=== PATIENT | female | born 1945 | race Caucasian/White ===

== ENCOUNTER → 2016-11-23 | Outpatient (CLI) | payer OTHER ==
[~2016-11-23] MED LIST: ALPR-411 PO; CALC600T9 PO; CELE100C PO; DICL1GEL28 TOP; LEVO125T4 PO; NRN600 PO; OXYC-57 PO; OXYSR/20 PO; PLQ200 PO; PRAZ1CAP10 PO; PRD/1 PO; RABE20TA5 PO; SERT50TA PO; TRIA37.5 PO; WARF-246 PO; WARF5TAB7 PO; ZOLP10TA PO
== END | disposition home or self-care (01) ==
LOC: C.LABSPEC 17:21
PROVIDERS: ATTEND Nurse Practitioner Family
DX: N39.0 Urinary tract infection, site not specified (principal); R32 Unspecified urinary incontinence; R35.0 Frequency of micturition

== ENCOUNTER → 2017-01-08 | Outpatient (CLI) | payer OTHER ==
[~2017-01-08] MED LIST changes: +CIPR1TAB11 PO; -LEVO125T4 PO; +LEVO125T5 PO; +NITR1CAP32 PO
--- NOTE | 2017-01-08 12:55 | DIAGNOSTIC IMAGING REPORT ---
RIGHT HIP 2 VIEWS HISTORY: Right hip pain. COMPARISON: None. FINDINGS: There is no fracture or dislocation. Small calcific densities adjacent to the proximal medial shaft of the right femur. This is likely due to old muscular injury. Mild space narrowing within the right hip consistent with degenerative change. The visualized pelvic bones are intact. No radiopaque foreign bodies. IMPRESSION: Mild right hip osteoarthritis. No fracture or dislocation within the right hip. Electronically signed by: David Barry M.D. 01/08/2017 12:53 PM Dictated Date/Time: 01/08/2017 12:51 PM
== END | disposition home or self-care (01) ==
LOC: C.RAD1850 12:39
PROVIDERS: ATTEND Internal Medicine
DX: I10 Essential (primary) hypertension (principal); M16.11 Unilateral primary osteoarthritis, right hip

== ENCOUNTER → 2017-02-08 | Outpatient (CLI) | payer OTHER ==
[~2017-02-08] MED LIST changes: -SERT50TA PO; -WARF-246 PO
== END | disposition home or self-care (01) ==
LOC: C.PATHSPEC 10:46
PROVIDERS: ATTEND Obstetrics & Gynecology
DX: L81.4 Other melanin hyperpigmentation (principal)

== ENCOUNTER → 2017-02-09 | Outpatient (CLI) | payer OTHER ==
--- NOTE | 2017-02-09 15:22 | MAMMOGRAPHY REPORT ---
BILATERAL DIGITAL SCREENING MAMMOGRAM WITH CAD: 02/09/2017 CLINICAL HISTORY: Routine screening. Patient has no complaints. TECHNIQUE: Bilateral CC and MLO views were obtained. Current study was also evaluated with a Comput er Aided Detection (CAD) system. COMPARISON: Comparison is made to exams dated: 02/05/2016 mammogram, 12/19/2013 mammogram, 06/14/2012 m ammogram, 06/02/2011 mammogram, 12/26/2009 mammogram - [facility], and 07/16/2008. BREAST COMPOSITION: There are scattered areas of fibroglandular density in both breasts. FINDINGS: There are vascular calcifications in the breasts. A 4 mm nodular asymmetry in the lateral , middle to posterior left breast, best seen on the CC view appears very similar to the 2015 and mammograms, but given slight differences in position was also likely present dating back to at [address] 07/16/2008, most likely an intramammary lymph node. An asymmetry with associated punctate microc alcifications in the right upper outer posterior breast is also very similar in appearance dating ba ck to at least 2007, therefore likely benign. No new suspicious mass, architectural distortion or c luster of microcalcifications is seen bilaterally. IMPRESSION: ACR BI-RADS CATEGORY 1: NEGATIVE Stable bilateral mammograms, without mammographic evidence of malignancy. A 1 year screening mammogr am is recommended. The patient will receive written notification of the results. Approximately 10% of breast cancers are not detected with mammography. A negative mammographic repor t should not delay biopsy if a clinically suggestive mass is present. Ce Ramos M.D. ay/:02/09/2017 15:01:46 Planning Lead: Lise BRUCE(R)(M)(BD), [facility] letter sent: Normal 1/2 BI-RADS Code: ACR BI-RADS Category 1: Negative
== END | disposition home or self-care (01) ==
LOC: C.MAMM 08:56
PROVIDERS: ATTEND Obstetrics & Gynecology
DX: Z12.31 Encounter for screening mammogram for malignant neoplasm of breast (principal); Z51.81 Encounter for therapeutic drug level monitoring; Z79.01 Long term (current) use of anticoagulants; D68.61 Antiphospholipid syndrome

== ENCOUNTER → 2017-03-04 | Outpatient (CLI) | payer OTHER ==
[2017-03-04 07:25] LABS: BASO ABS # 0.08 K/uL (0-0.2); EOS % 5.9 %; HEMATOCRIT 40.8 % (37-47); IG% 0.4 %; LYMPH % 27.4 %; MEAN CELL VOLUME 89.3 fL (80-100); MEAN CORPUSCULAR HEMOGLOBIN 28.7 pg (25-34); MONO % 10.7 %; NEUT % 54.6 %; PLATELET COUNT 268 K/uL (130-400); RED BLOOD COUNT 4.57 M/uL (4.2-5.4); WHITE BLOOD COUNT 7.66 K/uL (4.8-10.8)
[2017-03-04 07:34] LABS: PROTHROMBIN TIME (PATIENT) 10.9 SECONDS (9.0-12.0)
[2017-03-04 07:46] LABS: COMPLETE YES; MEAN CORPUSCULAR HGB CONC 32.1 g/dl (32-36)
== END | disposition home or self-care (01) ==
LOC: C.LAB 07:08
PROVIDERS: ATTEND Physician Assistant Medical
DX: Z01.810 Encounter for preprocedural cardiovascular examination (principal); Z01.812 Encounter for preprocedural laboratory examination; G57.01 Lesion of sciatic nerve, right lower limb; M70.61 Trochanteric bursitis, right hip; Z79.01 Long term (current) use of anticoagulants; Z51.81 Encounter for therapeutic drug level monitoring; Z79.52 Long term (current) use of systemic steroids; M32.9 Systemic lupus erythematosus, unspecified; M06.9 Rheumatoid arthritis, unspecified; M81.0 Age-related osteoporosis without current pathological fracture; F11.20 Opioid dependence, uncomplicated; Z86.718 Personal history of other venous thrombosis and embolism; Z86.711 Personal history of pulmonary embolism; K21.9 Gastro-esophageal reflux disease without esophagitis; I10 Essential (primary) hypertension; Z90.89 Acquired absence of other organs; Z90.49 Acquired absence of other specified parts of digestive tract; E89.0 Postprocedural hypothyroidism; Z98.49 Cataract extraction status, unspecified eye; Z89.421 Acquired absence of other right toe(s)

== ENCOUNTER → 2017-03-09 | Outpatient (CLI) | payer OTHER | END | disposition home or self-care (01) | LOC: C.RDSM 09:00 | PROVIDERS: ATTEND Physical Medicine & Rehabilitation Sports Medicine | DX: M25.562 Pain in left knee (principal); Z51.81 Encounter for therapeutic drug level monitoring; Z79.01 Long term (current) use of anticoagulants; D68.61 Antiphospholipid syndrome ==

== ENCOUNTER → 2017-04-13 | Outpatient (CLI) | payer OTHER ==
[~2017-04-13] MED LIST changes: -CIPR1TAB11 PO; +LEVO125T4 PO; -LEVO125T5 PO; -NITR1CAP32 PO
== END | disposition home or self-care (01) ==
LOC: C.RDSM 15:04
PROVIDERS: ATTEND Physical Medicine & Rehabilitation Sports Medicine
DX: M25.551 Pain in right hip (principal); Z51.81 Encounter for therapeutic drug level monitoring; Z79.01 Long term (current) use of anticoagulants; D68.61 Antiphospholipid syndrome; K65.1 Peritoneal abscess

== ENCOUNTER → 2017-04-26 | Outpatient (CLI) | payer OTHER ==
--- NOTE | 2017-04-26 11:16 | DIAGNOSTIC IMAGING REPORT ---
RIGHT TIBIA/FIBULA 2 VIEWS ROUTINE HISTORY: 72 years-old Female M19.90 [id number] [id number] Pain of footBothRA Right COMPARISON: Right femur radiographs 04/13/2017 TECHNIQUE: Frontal and lateral views of the right tibia and fibula. FINDINGS: The bones are moderately demineralized. There is a small knee joint effusion. Moderate to severe degenerative changes are seen throughout the right mid foot. There is a 6 mm soft tissue calcification of the medial lower leg. There is no acute fracture or dislocation. Moderate degenerative changes are seen within the lateral compartment about the knee. Mild medial patellofemoral compartment osteoarthritis is also present. IMPRESSION: 1. Moderate bone demineralization without acute fracture or dislocation. 2. Small knee joint effusion. 3. Tricompartmental osteoarthritis, most pronounced within the lateral compartment where there is moderate disease. The above report was generated using voice recognition software. It may contain grammatical, syntax or spelling errors. Electronically signed by: Nakul Padilla M.D. 04/26/2017 11:14 AM Dictated Date/Time: 04/26/2017 11:12 AM
--- NOTE | 2017-04-26 11:17 | DIAGNOSTIC IMAGING REPORT ---
LEFT TIBIA/FIBULA 2 VIEWS ROUTINE CLINICAL HISTORY: M19.90 BabhosfxrlqzieV33.80 IlrlyggsniO63.673 Pain of footBothRA LEFT LOWER LEG PAIN COMPARISON: None. DISCUSSION: The bones are osteopenic. No acute fractures are visualized. There are vascular calcifications present. There are multiple surgical clips present within the medial posterior soft tissues. Moderate arthritic changes are suspected within the midfoot. IMPRESSION: Osteopenia. No acute fractures. No destructive lesions identified. Electronically signed by: Jeff Carr M.D. 04/26/2017 11:16 AM Dictated Date/Time: 04/26/2017 11:15 AM
--- NOTE | 2017-04-26 12:17 | DIAGNOSTIC IMAGING REPORT ---
LEG LENGTH STUDY (WHOLE LEG) CLINICAL HISTORY: Foot pain. Osteopenia. Osteoarthritis. COMPARISON STUDY: No previous studies for comparison. FINDINGS: Surgical weston within the left lower leg are noted. Arthritis within both knees is noted, greatest within the lateral compartments. Right femur measures 55.1 cm and left femur measures 54.7 cm. Right tibia measures 46.5 cm and left tibia measures 45 cm. IMPRESSION: Right femur length of 55.1 cm and left femur length of 54.7 cm. Right tibia length of 46.5 cm and left tibia length of 45 cm. Total right leg length of 101.6 cm in total left leg length of 99.7 cm. Electronically signed by: Tej Fox M.D. 04/26/2017 12:16 PM Dictated Date/Time: 04/26/2017 12:12 PM
== END | disposition home or self-care (01) ==
LOC: C.RAD1850 10:31
PROVIDERS: ATTEND Internal Medicine
DX: M79.673 Pain in unspecified foot (principal); M85.80 Other specified disorders of bone density and structure, unspecified site; M25.461 Effusion, right knee; M17.11 Unilateral primary osteoarthritis, right knee

== ENCOUNTER → 2017-05-14 | Outpatient (CLI) | payer OTHER ==
--- NOTE | 2017-05-14 12:09 | DIAGNOSTIC IMAGING REPORT ---
ABDOMINAL ULTRASOUND HISTORY: Right lower quadrant lump. COMPARISON: CT of the abdomen and pelvis August 20, 2015 and abdominal ultrasound September 17, 2015. FINDINGS: Sonography of the right lower quadrant site of palpable abnormality demonstrated a small subcutaneous fluid collection that measured approximately 3 x 1.2 cm. This was shown on exam of September 17, 2015 and is similar to prior exam when allowing for measurement variability. This appears to communicate with a larger collection associated with a hernia mesh which was also shown on prior exam. No significant change is noted since prior exam although comparison by sonography is difficult. IMPRESSION: Small subcutaneous fluid collection of the right lower quadrant which reflects the palpable abnormality. This collection likely communicates with fluid associated with a hernia mesh. Comparison by sonography is difficult however similar findings were shown on exam September 17, 2015. Electronically signed by: Tej Fox M.D. 05/14/2017 12:08 PM Dictated Date/Time: 05/14/2017 12:02 PM
== END | disposition home or self-care (01) ==
LOC: C.ULTR 10:57
PROVIDERS: ATTEND Physician Assistant
DX: R10.9 Unspecified abdominal pain (principal); R18.8 Other ascites

== ENCOUNTER → 2017-06-07 | Outpatient (CLI) | payer OTHER | END | disposition home or self-care (01) | LOC: C.LABSPEC 12:19 | PROVIDERS: ATTEND Physician Assistant | DX: K65.1 Peritoneal abscess (principal); R18.8 Other ascites ==

== ENCOUNTER → 2017-06-08 | Outpatient (CLI) | payer OTHER ==
--- NOTE | 2017-06-08 16:13 | DIAGNOSTIC IMAGING REPORT ---
ABDOMEN NO IV/ORAL CONT (CT) CT DOSE: 548.24 mGycm HISTORY: Abscess K65.1 Abdominal [id number] TECHNIQUE: Multiaxial CT images of the abdomen was performed without contrast. A dose lowering technique was utilized adhering to the principles of ALARA. COMPARISON STUDY: CT 08/20/2015 FINDINGS: Lung bases remain clear. Minimal right basilar atelectasis. The complex right anterior abdominal wall collection has increased in volume from the prior study. Maximum transaxial dimensions are now 7.5 x 5.0 cm. The possibility of intra-abdominal extension to the distal greater curvature of the stomach, and possibly hepatic flexure the colon of the colon is now considered. A fluid pocket potentially involving anterior aspect of the hepatic flexure is present measuring 3.3 cm. Although in contact and potentially involving the gastric/colonic wall there does not appear to be an obstructive component. There is inflammatory change and or cellulitis involving the right lateral abdominal wall extending from the level of the right 11th rib inferiorly to the level of the right iliac crest. A drainable subcutaneous collection does not appear to be present. Kidneys remain negative for hydronephrosis. There may be a small lower pole left renal cyst unchanged. Visualized components of pancreas are unremarkable. IMPRESSION: 1. Interval increase in volume of a right anterior abdominal wall collection, now with secondary involvement of the subcutaneous fat of the right flank consistent with a secondary cellulitis. 2. The collection appears to redemonstrated intra-abdominal extension to the distal aspect of the stomach as well as hepatic flexure of the colon. 3. Bowel pattern remains nonobstructive. Slightly progressive infiltrative changes along the anterior abdominal wall and/or peritoneal surface must also be considered. Diagnostic considerations include hematoma, abscess, versus necrotic mass The above report was generated using voice recognition software. It may contain grammatical, syntax or spelling errors. Electronically signed by: Fernando Smith M.D. 06/08/2017 4:12 PM Dictated Date/Time: 06/08/2017 4:04 PM
== END | disposition home or self-care (01) ==
LOC: C.CTS 15:41
PROVIDERS: ATTEND Physician Assistant
DX: K65.1 Peritoneal abscess (principal)

== ENCOUNTER → 2017-07-07 | Outpatient (CLI) | payer OTHER | END | disposition home or self-care (01) | LOC: C.LABSPEC 17:07 | PROVIDERS: ATTEND Nurse Practitioner Adult Health | DX: N39.0 Urinary tract infection, site not specified (principal) ==

== ENCOUNTER → 2017-07-08 | Outpatient (CLI) | payer OTHER ==
[~2017-07-08] MED LIST changes: +CIPR1TAB11 PO; -LEVO125T4 PO; +LEVO125T5 PO; +NITR1CAP32 PO
--- NOTE | 2017-07-08 08:12 | DIAGNOSTIC IMAGING REPORT ---
ABD WITH ORAL CONT ONLY (CT) HISTORY: Follow-up of abdominal wall mass. TECHNIQUE: Multiaxial CT images of the abdomen were performed following the use of oral contrast only. COMPARISON STUDY: Abdomen CT 06/08/2017. FINDINGS: Partially visualized A millimeters groundglass nodule within the right lower lobe. Mild dependent changes seen at the lung bases. Mild elevation the right hemidiaphragm, unchanged. No pneumoperitoneum. No pneumatosis. Levoscoliosis and degenerative changes within the lumbar spine. Interval decrease in size in the 6.9 x 2.0 cm slightly thick-walled fluid collection within the right anterior abdominal wall. This appears to be along the posterior aspect of the right rectus sheath. There is also extension of this low density fluid collection into the anterior wall the gastric antrum. However, this does not appear to extend into the lumen of the stomach. There is no contrast identified within this fluid collection to suggest a fistula. The tract that extends into the anterior wall the gastric antrum measures 2.4 cm, previously measuring 3.3 cm. The dominant fluid collection previously measured 8.7 x 3.9 cm. This fluid collection abuts the undersurface of the left hepatic lobe. The unenhanced liver, gallbladder, pancreas, spleen, and adrenal glands are unremarkable. Mild right cortical renal scarring. No renal stones or hydronephrosis. Stable hypodense lesion within the lower pole the left kidney. This likely represents a cyst. The visualized loops of bowel show no evidence for bowel obstruction. Moderate well-formed stool seen throughout the colon. IMPRESSION: Decrease in size of the thick-walled fluid collection within the right anterior abdominal wall which appears to be at the posterior aspect of the right rectus sheath. There is focal extension of this suspected fluid collection into the anterior wall of the gastric antrum which is also decreased in size. However, there is no evidence for contrast extension to suggest a fistula at this time. This favors a hematoma, postoperative seroma or less likely an abscess. A necrotic mass could also have a similar appearance but is also considered less likely given the decrease in size. Electronically signed by: David Barry M.D. 07/08/2017 8:10 AM Dictated Date/Time: 07/08/2017 7:58 AM
== END | disposition home or self-care (01) ==
LOC: C.CTS 07:19
PROVIDERS: ATTEND Internal Medicine Infectious Disease
DX: K65.1 Peritoneal abscess (principal); L02.211 Cutaneous abscess of abdominal wall

== ENCOUNTER → 2017-09-08 | Outpatient (CLI) | payer OTHER ==
[~2017-09-08] MED LIST changes: -CIPR1TAB11 PO; +DICL1GEL12 TOP; +DOXY100C2 PO; +SERT50TA PO; +WARF6TAB5 PO
== END | disposition home or self-care (01) ==
LOC: C.LABSPEC 11:00
PROVIDERS: ATTEND Nurse Practitioner Adult Health
DX: N39.0 Urinary tract infection, site not specified (principal)

== ENCOUNTER 2017-09-14 10:47 | Emergency (ER) | payer OTHER ==
[~2017-09-14] VITALS: Ht 175.3 cm; Wt 88.0 kg
[~2017-09-14 10:47] MED LIST changes: -DICL1GEL12 TOP; -DOXY100C2 PO; -SERT50TA PO; -WARF6TAB5 PO
[2017-09-14 10:57] VITALS: TEMP 36.3; Ht 175.3 cm; Wt 88.0 kg
[2017-09-14] MEDS ORDERED: OPTIRAY 320 IV PRN (13:30)
[2017-09-14 13:40] LABS: BASO % 0.6 %; BASO ABS # 0.05 K/uL (0-0.2); COMPLETE YES; EOS % 0.3 %; HEMATOCRIT 39.9 % (37-47); IG% 0.1 %; LYMPH % 8.5 %; LYMPH ABS # 0.67 K/uL (1.2-3.4); MEAN CELL VOLUME 86.4 fL (80-100); MEAN CORPUSCULAR HEMOGLOBIN 28.1 pg (25-34); MEAN CORPUSCULAR HGB CONC 32.6 g/dl (32-36); MEAN PLATELET VOLUME 10.6 fL (7.4-10.4); NEUT % 86.5 %; PLATELET COUNT 277 K/uL (130-400); RED BLOOD COUNT 4.62 M/uL (4.2-5.4); WHITE BLOOD COUNT 7.92 K/uL (4.8-10.8)
[2017-09-14 13:47] LABS: INR 2.3 (0.9-1.1); PARTIAL THROMBOPLASTIN RATIO 1.5; PROTHROMBIN TIME (PATIENT) 23.7 SECONDS (9.0-12.0)
[2017-09-14] MEDS ORDERED: WARF6TAB5 PO (13:47)
[2017-09-14] MEDS ORDERED: DICL1GEL12 TOP (13:47)
[2017-09-14 13:55] LABS: BUN/CREATININE RATIO 26.9 (10-20); CALCIUM 9.1 mg/dl (8.5-10.1); CREATININE 0.92 mg/dl (0.60-1.20); POTASSIUM 4.2 mmol/L (3.5-5.1)
--- NOTE | 2017-09-14 14:36 | DIAGNOSTIC IMAGING REPORT ---
ABD/PELVIS IV CONTRAST ONLY CLINICAL HISTORY: 72 years-old Female presenting with rule out abscess, right-sided abdominal wound following multiple hernia repairs, history of collection drainage in May, now red and swollen. TECHNIQUE: Multidetector CT of the abdomen and pelvis was performed after the administration of intravenous contrast. IV contrast: 92 mL of Optiray 320. A dose lowering technique was used consistent with the principles of ALARA (as low as reasonably achievable). COMPARISON: 07/08/2017. CT DOSE (mGy.cm): The estimated cumulative dose is 697.47 mGy.cm. FINDINGS: [employer] topogram: Levoscoliotic curvature of the lumbar spine. Lung bases: Minimal basilar opacities, likely atelectasis. Top normal heart size. Coronary artery, mitral annular, and aortic valve calcification. No pericardial or pleural effusion. Liver: Normal morphology. No liver lesion. Patent hepatic vasculature. Biliary: No intrahepatic or extrahepatic biliary ductal dilatation. Normal gallbladder. Pancreas: Moderate parenchymal atrophy. Spleen: Normal. Adrenal glands: Normal. Kidneys and ureters: Well-defined hypodensity at the lower pole the left kidney, likely simple cyst. No hydronephrosis. No nephrolithiasis. Ureters normal. Bladder: Normal. Pelvic organs: Uterus and ovaries normal. A pessary is located at the vaginal vault. Bowel: Mild stool burden throughout normal caliber colon primarily in the right and transverse colon. No bowel obstruction. Peritoneal cavity: No free fluid or intraperitoneal gas. Lymph nodes: No enlarged lymph nodes in the abdomen or pelvis. Vasculature: Atherosclerosis of the normal caliber abdominal aorta. Minimal ectasia of the infrarenal abdominal aortic at the level of the aortic bifurcation. IVC patent. Abdominal wall: Diastasis of the rectus abdominis. Trace laminar fluid superficial to the right anterior abdominal peritoneum. The collection measures proximal 6 mm in thickness and 6 cm in width. This courses from the level of the inferior margin of the liver superiorly to the site of an old tract in the right lateral abdominal wall inferiorly (series 3 image 217). No significant inflammatory change surrounds the collection Evidence of lumbar herniations which do not extend through the oblique muscles but only undermine the transversalis muscle bilaterally. Musculoskeletal: Degenerative changes of the spine. IMPRESSION: 1. Trace residual fluid along the right anterior abdominal wall at the site of prior collection. An apparent tract emanates from the inferior aspect of the collection coursing to the right lateral abdominal wall. Infection of the residual collection cannot be excluded, however, no significant inflammatory changes evident. Electronically signed by: Blake Adame M.D. 09/14/2017 2:35 PM Dictated Date/Time: 09/14/2017 2:25 PM
[2017-09-14] MEDS ORDERED: DOXY100C2 PO (15:20)
[2017-09-14 15:41] VITALS: BP 156/77; PULSE 80; O2SAT 99
--- NOTE | 2017-09-14 20:17 | EMERGENCY ROOM VISIT NOTE ---
ED Visit Note First contact with patient: 11:55 Chief Complaint: I have a red spot on my stomach. History of Present Illness: Ms. Sharpe is a 72-year-old white female who ambulates into the ED accompanied by female friend complaining of a skin color change on her abdomen. Historically in June 2017 patient had a MRSA abdominal wall infection from a previous hernia repair site. Patient reports she's been her normal self for the last 3-4 days. This last evening prior to bedtime she noted a small erythematous lesion in the right lower quadrant; her last abdominal wall infection was in the right lower quadrant. She did check it this morning and it appeared the same size. She has not taken any medications. She has had no symptoms with the development of this lesion. She has seen no drainage from the lesion. She denies fevers, chills, sweats, other skin eruptions, other skin color changes, upper respiratory tract symptoms, chest pain, shortness of breath, abdominal pain, nausea, vomiting, decreased appetite, diarrhea, constipation, recent direct or repetitive trauma to the abdomen. Review of Systems: As noted above in history of present illness. All body systems were reviewed and found to be negative as noted above. Past Medical History: Abdominal hernia and status post repair, anxiety, arthritis, hypertension, DVT, diabetic foot ulcer, GERD, Lupus, unspecified heart disease, MRSA infection from hernia site, aortic stenosis, pulmonary hypertension, diastolic dysfunction, aortic thrombus with graft repair, peripheral artery disease, hypothyroidism, rheumatoid arthritis, status post appendectomy. Current Medications: Bactrim, amoxicillin, clindamycin, latex Allergies to Medications: Prazosin, Percocet, calcium with D, AcipHex, Dyazide, levothyroxine, Zantac, prednisone, Celebrex, gabapentin, oxycodone, Ambien, Hydroxychloroquine, Macrodantin, Voltaren, warfarin. Social History: Patient is not employed; she lives with her and feels safe in her home environment; she denies tobacco use. Physical Examination: Vital Signs: Date Time Temp Pulse Resp B/P (MAP) Pulse Ox O2 Delivery O2 Flow Rate FiO2 09/14/17 15:41 80 18 156/77 99 09/14/17 14:30 70 18 174/91 97 Room Air 09/14/17 12:36 86 20 157/74 97 Room Air 09/14/17 10:57 36.3 88 18 162/84 97 Room Air GENERAL: 72-year-old female in no acute distress, nontoxic-appearing, afebrile and hemodynamically stable. NEUROLOGICAL: Awake, alert and oriented to person, place and time. Answering questions appropriately and following commands. Normal gait. Good hand eye coordination. No focal motor or sensory deficits. SKIN: Warm, dry and pink. Abdomen: Over the lateral aspect of the right lower quadrant patient has a 1 cm oval area of erythema. Within this area there is an area that is slightly blanched less red measuring approximately 3 mm. This area is flat and his questionably fluctuant but there is no induration. No lymphangitis. HEENT: Atraumatic and normocephalic. PERRLA. Sclera white and conjunctiva pink. No drainage from naris. Oral cavity moist and pink. Pharynx is nonerythematous or edematous. Speech normal. No lymphadenopathy. Trachea midline. No jugular venous distention. BACK: No tenderness over the bony spine. No CVA tenderness. THORAX: Lungs sounds are clear to auscultation and equal bilaterally with symmetrical chest wall. No wheezing, rales or rhonchi. No crepitus, tenderness , subcutaneous air or deformities noted. HEART: Regular rate and rhythm. Less sternal border systolic murmur. No gallops, rubs appreciated. ABDOMEN: Flat, soft and nontender. Positive bowel sounds in all quadrants. No guarding, rigidity or organomegaly. EXTREMITIES: Moves all extremities well on command and with purpose. All distal neurovascular statuses are intact and equal bilaterally. ED Course: Patient is assessed as noted above. Patient's medication list was reviewed. Laboratory testings: Test 09/14/17 13:07 Range/Units White Blood Count 7.92 4.8-10.8 K/uL Red Blood Count 4.62 4.2-5.4 M/uL Hemoglobin 13.0 12.0-16.0 g/dL Hematocrit 39.9 37-47 % Mean Corpuscular Volume 86.4 80-100 fL Mean Corpuscular Hemoglobin 28.1 25-34 pg Mean Corpuscular Hemoglobin Concent 32.6 32-36 g/dl Platelet Count 277 130-400 K/uL Mean Platelet Volume 10.6 7.4-10.4 fL Neutrophils (%) (Auto) 86.5 % Lymphocytes (%) (Auto) 8.5 % Monocytes (%) (Auto) 4.0 % Eosinophils (%) (Auto) 0.3 % Basophils (%) (Auto) 0.6 % Neutrophils # (Auto) 6.85 1.4-6.5 K/uL Lymphocytes # (Auto) 0.67 1.2-3.4 K/uL Monocytes # (Auto) 0.32 0.11-0.59 K/uL Eosinophils # (Auto) 0.02 0-0.5 K/uL Basophils # (Auto) 0.05 0-0.2 K/uL RDW Standard Deviation 46.4 36.4-46.3 fL RDW Coefficient of Variation 14.8 11.5-14.5 % Immature Granulocyte % (Auto) 0.1 % Immature Granulocyte # (Auto) 0.01 0.00-0.02 K/uL Prothrombin Time 23.7 9.0-12.0 SECONDS Prothromb Time International Ratio 2.3 0.9-1.1 Activated Partial Thromboplast Time 38.3 21.0-31.0 SECONDS Partial Thromboplastin Ratio 1.5 Sodium Level 135 136-145 mmol/L Potassium Level 4.2 3.5-5.1 mmol/L Chloride Level 98 98-107 mmol/L Carbon Dioxide Level 31 21-32 mmol/L Anion Gap 7.0 3-11 mmol/L Blood Urea Nitrogen 25 7-18 mg/dl Creatinine 0.92 0.60-1.20 mg/dl Est Creatinine Clear Calc Drug Dose 67.3 ml/min Estimated GFR () 73.1 Estimated GFR (Non- 63.1 BUN/Creatinine Ratio 26.9 10-20 Random Glucose 110 70-99 mg/dl Calcium Level 9.1 8.5-10.1 mg/dl Blood Cultures: Pending. IV Contrast Abdominal/Pelvic CT: Was reviewed by myself and read by the radiologist showing trace residual fluid along the right anterior abdominal wall from prior collection no significant inflammatory changes. Patient was offered pain medications and refused. Patient's case was reviewed with Dr. Euceda; she and and probably assessed the patient we agreed on diagnostic approach, treatment, disposition and plan. Patient was educated about today's findings and instructed on her treatment plan ; she verbalized understanding and agreement with this plan. Clinical Impression: Skin wall erythema. Disposition: Patient discharged home in stable condition; prior to departure she was reassessed and subjectively reported she was still pain and symptom- free. Plan: Patient was encouraged to continue her current medications as prescribed. Patient was prescribed doxycycline 100 mg 2 times a day for 10 days. Patient was encouraged to follow-up with her Coumadin clinic tomorrow for reevaluation of her Coumadin. Patient is encouraged to follow-up with her family physician in 3 days for recheck and prior to leaving on vacation. Patient was educated on signs of worsening infection. Patient was encouraged return ED for any signs of worsening infection or any new /concerning symptoms.
== END 2017-09-14 15:30 | disposition home or self-care (01) ==
LOC: C.EDB 10:49 → C.EDC 15:30
DX: L53.9 Erythematous condition, unspecified (principal); I11.9 Hypertensive heart disease without heart failure; F41.9 Anxiety disorder, unspecified; E11.9 Type 2 diabetes mellitus without complications; K21.9 Gastro-esophageal reflux disease without esophagitis; I35.0 Nonrheumatic aortic (valve) stenosis; I27.20 Pulmonary hypertension, unspecified; M32.9 Systemic lupus erythematosus, unspecified; E03.9 Hypothyroidism, unspecified; I73.9 Peripheral vascular disease, unspecified; M06.9 Rheumatoid arthritis, unspecified; Z86.718 Personal history of other venous thrombosis and embolism; Z79.01 Long term (current) use of anticoagulants; Z51.81 Encounter for therapeutic drug level monitoring; D68.61 Antiphospholipid syndrome; K65.1 Peritoneal abscess

== ENCOUNTER 2017-12-14 10:53 | Emergency (ER) | payer OTHER ==
[~2017-12-14] VITALS: Ht 175.3 cm; Wt 84.5 kg
[~2017-12-14 10:53] MED LIST changes: +DICL1GEL12 TOP; -DICL1GEL28 TOP; +DOXY100C2 PO; +SERT50TA PO; -WARF5TAB7 PO; +WARF6TAB5 PO
[2017-12-14 11:05] VITALS: Ht 175.3 cm; Wt 84.5 kg
[2017-12-14] MEDS ORDERED: FENTANYL CITRATE INJ 50 MCG/1 ML 2 ML VIAL IV STA ×2 (11:06→11:25)
[2017-12-14] MEDS ORDERED: ONDANSETRON INJ 2 MG/ML 2 ML VIAL IV STA (11:06)
--- NOTE | 2017-12-14 11:35 | DIAGNOSTIC IMAGING REPORT ---
LEFT SHOULDER 2 VIEWS CLINICAL HISTORY: Fall with left shoulder injury. FINDINGS: 2 portable views of the left shoulder are obtained. No prior studies are available for comparison at the time of dictation. The skeletal structures are osteopenic. Findings consistent with anterior shoulder dislocation. No fracture is clearly seen. Bony overgrowth is suggested along the inferior aspect of the glenoid. The acromioclavicular joint is maintained. Mild overlying soft tissue edema is identified. The visualized left lung parenchyma appears clear. Healed left-sided rib fractures are noted. IMPRESSION: Findings are consistent with anterior shoulder dislocation. No acute fracture is clearly seen. Electronically signed by: Damon Cardona M.D. 12/14/2017 11:34 AM Dictated Date/Time: 12/14/2017 11:31 AM
[2017-12-14] MEDS ORDERED: PROPOFOL IV EMULSION 10 MG/ML 20 ML VIAL IV STA (11:36)
[2017-12-14 11:46] LABS: BASO % 0.7 %; BASO ABS # 0.07 K/uL (0-0.2); EOS % 2.8 %; EOS ABS # 0.28 K/uL (0-0.5); HEMATOCRIT 39.4 % (37-47); IG# 0.03 K/uL (0.00-0.02); LYMPH % 12.9 %; MEAN CELL VOLUME 87.6 fL (80-100); MEAN CORPUSCULAR HEMOGLOBIN 28.9 pg (25-34); MEAN PLATELET VOLUME 10.3 fL (7.4-10.4); MONO % 3.9 %; MONO ABS # 0.39 K/uL (0.11-0.59); NEUT % 79.4 %; NEUT ABS # 8.02 K/uL (1.4-6.5); PLATELET COUNT 261 K/uL (130-400); RED CELL DISTRIBUTION WIDTH CV 14.4 % (11.5-14.5); RED CELL DISTRIBUTION WIDTH SD 46.6 fL (36.4-46.3); WHITE BLOOD COUNT 10.09 K/uL (4.8-10.8)
[2017-12-14 11:49] LABS: ISTAT IONIZED CALCIUM 1.12 mmol/l (1.12-1.32); ISTAT POTASSIUM 4.2 mEq/L (3.3-5.0)
[2017-12-14 11:58] LABS: INR 2.5 (0.9-1.1); PTT PATIENT 35.5 SECONDS (21.0-31.0)
[2017-12-14 12:02] VITALS: O2SAT 95
[2017-12-14 12:05] LABS: ALBUMIN 3.6 gm/dl (3.4-5.0); CREATININE 0.91 mg/dl (0.60-1.20); POTASSIUM 4.1 mmol/L (3.5-5.1)
--- NOTE | 2017-12-14 12:16 | EMERGENCY ROOM VISIT NOTE ---
Pre-Mod Sedation Assessment General Date of Moderate Sedation: Dec 14, 2017. Vital Signs: Vital Signs Past 12 Hours Date Time Temp Pulse Resp B/P (MAP) Pulse Ox O2 Delivery O2 Flow Rate FiO2 12/14/17 11:42 78 18 175/65 93 Room Air 12/14/17 11:26 81 12/14/17 11:05 36.5 76 22 141/56 94 Room Air Review Cardiovascular: regular rate, rhythm, no gallop, no JVD Abdomen: normal bowel sounds, non tender, soft, no organomegaly, no pulsatile mass Lungs: lungs clear, normal breath sounds, no respiratory distress, no accessory muscle use Airway Class: II Pre-Sedation Airway Assessment Oral Cavity: WNL Short Thick Neck: No Hx of Sleep Apnea: No Smoking Status: Never Smoker Mallampati Classification: Class III ASA Classification: Class III Procedure Planning Contraindications-for Mod Sed: None Yes Notes The planned sedation has been discussed with the patient and consent obtained. I have identified the patient, determined the appropriateness of sedation and have assessed the patient immediately prior to the procedure. All medicine(s) and interventions are by my order.
--- NOTE | 2017-12-14 12:17 | EMERGENCY ROOM VISIT NOTE ---
Post-Moderate Sedation Plan General Date of Moderate Sedation Dec 14, 2017. Vital Signs: Vital Signs Past 12 Hours Date Time Temp Pulse Resp B/P (MAP) Pulse Ox O2 Delivery O2 Flow Rate FiO2 12/14/17 11:42 78 18 175/65 93 Room Air 12/14/17 11:26 81 12/14/17 11:05 36.5 76 22 141/56 94 Room Air Review - Discharge Plan Post Moderate Sedation Plan: On clinical assessment, the patient appears to have tolerated the conscious sedation without complications. Patient is recovering as anticipated. Patient will continue to be monitored by nursing and may be discharged when conscious sedation discharge criteria are met.
--- NOTE | 2017-12-14 12:25 | DIAGNOSTIC IMAGING REPORT ---
L SHOULDER MIN 2 VIEWS ROUTINE CLINICAL HISTORY: 72 years-old Female presenting with L shoulder relocation s/p reduction. TECHNIQUE: Frontal and transscapular Y views of the left shoulder were obtained. COMPARISON: 12/14/2017. FINDINGS: There has been interval reduction of the previously noted anterior dislocation of the left humeral head. No residual subluxation of the humeral head. No gross evidence of a displaced fracture. Glenohumeral and acromioclavicular joints congruent. No advanced degenerative change though mild degenerative changes of the glenohumeral joint may be present. IMPRESSION: Successful reduction of the left anterior humeral dislocation. No gross evidence of a fracture. Electronically signed by: Blake Adame M.D. 12/14/2017 12:24 PM Dictated Date/Time: 12/14/2017 12:22 PM
--- NOTE | 2017-12-14 12:30 | EMERGENCY ROOM VISIT NOTE ---
ED Visit Note First contact with patient: 11:01 Pt seen and evaluated at bedside due to concern for neurovascular compromise following left shoulder dislocation. Patient fell outside of the Coumadin clinic today. No prior history of dislocation or fracture to the left shoulder. On my initial exam, patient with altered sensation, delayed cap refill, no palpable pulses and none found via Doppler for radial and ulnar on the affected side. Patient unable to move her fingers or feel me touch. Arm began to feel cold to the touch and had slight pallor compared to the opposite side. Patient had obvious dislocation of the left shoulder and concern for possible accompanying fracture. Upon attempts at making the patient more comfortable and prepping the arm, I found that patient had improved exam, cap refill, and color to the arm in a certain position. The physician sound assistant after asking me to come to the bedside to examine the patient emergently also contacted orthopedics who is in agreement with us trying to attempt a reduction here in the emergency room in order to improve her neurovascular status. Consent obtained for both sedation and procedure. Patient moved to resuscitation room, placed in the monitor, end-tidal CO2 monitor placed, patient started on nasal cannula and IV fluids as a precaution. On my bedside exam, patient with no prior difficulties with anesthesia, no history of aspiration or difficulty swallowing. Patient given a dose of Pepcid as a precaution given history of GERD. Patient given propofol slowly and cautiously to achieve adequate sedation to allow reduction of the left anterior shoulder dislocation via traction countertraction technique. Success noted clinically upon this and confirmed with x-ray. Patient tolerated procedure well. No episodes of hypoxia or hypotension. Patient recovered fairly quickly able to answer all questions and reported improvement in pain. Patient placed in a sling as a precaution. Please refer to the physician assistants chart for additional details and labs.
[2017-12-14 12:37] VITALS: BP 140/90; PULSE 81; O2SAT 98
--- NOTE | 2017-12-14 13:07 | DIAGNOSTIC IMAGING REPORT ---
CT HEAD WITHOUT CONTRAST (CT) CLINICAL HISTORY: Head pain status post trauma COMPARISON STUDY: 04/30/2015 TECHNIQUE: Axial CT of the brain is performed from the vertex to the skull base. IV contrast was not administered for this examination. A dose lowering technique was utilized adhering to the principles of ALARA. CT DOSE: 788.63 mGycm FINDINGS: No intra or extra-axial mass lesions are visualized. There is no CT evidence of acute cortical infarction. There is no evidence of midline shift. There is no acute hemorrhage. No calvarial fractures are visualized. There are patchy white matter hypodensities likely on a small vessel basis. 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 There is no evidence of pathologic ventricular dilatation. There is no evidence of acute sinusitis IMPRESSION: No acute intracranial findings Electronically signed by: Jeff Carr M.D. 12/14/2017 1:06 PM Dictated Date/Time: 12/14/2017 1:04 PM
--- NOTE | 2017-12-14 13:13 | DIAGNOSTIC IMAGING REPORT ---
CERVICAL SPINE W/O CLINICAL HISTORY: 72 years-old Female presenting with Fall, head and neck pain. TECHNIQUE: Multidetector CT of the cervical spine was performed without the use of intravenous contrast. IV contrast: None. A dose lowering technique was used consistent with the principles of ALARA (as low as reasonably achievable). COMPARISON: None. CT DOSE (mGy.cm): The estimated cumulative dose is 439.01 mGycm. FINDINGS: Photographic Enlarger Operator topogram: Unremarkable. Suboptimal positioning limits evaluation. Additionally 5 mm of grade 2 anterolisthesis of C3 on C4 alters normal cervical alignment. This also causes focal spinal canal narrowing at this level. This appears to be degenerative in etiology as no acute fracture is evident. No acute subluxation. Compression deformity of the left facet of C3 may imply a chronic fracture deformity. No evidence of a perched facet. Remaining vertebral body levels demonstrate grossly normal alignment. Vertebral body heights are essentially maintained. Significant intervertebral disc height loss at C3-4 with endplate cystic change. Disc height loss also noted to varying degrees at the remaining levels with disc osteophyte complexes. Rotatory subluxation of C1 on C2 likely positional. Extensive disc osteophyte complexes/uncovertebral hypertrophy in combination with facet arthropathy result in varying degrees of osseous neural foraminal narrowing. Skull base intact. Lung apices clear. Paraspinal soft tissues normal allowing for noncontrast technique. Atherosclerosis. IMPRESSION: 1. No convincing evidence of an acute osseous injury. 2. Multilevel degenerative changes with varying degrees of osseous neural foraminal narrowing. 3. Grade 2 anterolisthesis of C3 on C4 with deformity of the left facet of C3. This may be degenerative in etiology or imply a chronic fracture deformity. Electronically signed by: Blake Adame M.D. 12/14/2017 1:12 PM Dictated Date/Time: 12/14/2017 1:05 PM
[2017-12-14] MEDS ORDERED: DIPHTHERIA/TETANUS/PERTUSSIS 0.5 ML SYR/VIAL IM. ONE (13:45)
--- NOTE | 2017-12-14 13:46 | EMERGENCY ROOM VISIT NOTE ---
History First contact with patient: 11:01 Chief Complaint: FALL Stated Complaint: FALL/L-SHOULDER PAIN History of Present Illness The patient is a 72 year old female who presents to the Emergency Room directly from outside the Coumadin clinic where she sustained a mechanical fall with complaints of "fall/left shoulder pain". The patient states that just prior to arrival she was at the Coumadin clinic, leaving and tripped over the left orthotic boot on her left foot. She states that it caused her to fall to the ground forward injuring her left shoulder. She states that the pain is severe, and is a 10/10. She is on Coumadin for history of clots with an INR today around 2.5. She notes pain in the left superior trapezius muscle but no chest pain, shortness of breath or other ailments. She is unsure of her tetanus status noting a small abrasion to the left lateral orbital bone region. Review of Systems A complete 10-point Review of Systems was discussed with the patient, with pertinent positives and negatives listed in the History of Present Illness. All remaining Review of Systems questions can be considered negative unless otherwise specified. Past Medical/Surgical History Medical Problems: (1) Abdominal hernia (2) Anxiety (3) Arthritis (4) Benign hypertension (5) Deep venous thrombosis (6) Diabetic foot ulcer (7) Gastroesophageal reflux disease (8) Heart disease (9) Lupus (10) MRSA (methicillin resistant Staphylococcus aureus) infection (11) S/P hernia surgery (12) Toe ulcer (13) urinary tract infection (14) UTI (urinary tract infection) Surgical Problems: (1) History of appendectomy Family History Diabetes mellitus Heart disease Hypertension Social History Smoking Status: Never Smoker Alcohol Use: none Drug Use: none Marital Status: Housing Status: lives with significant other Occupation Status: retired Current/Historical Medications Scheduled Alprazolam (Xanax), 0.25 MG PO QID Calcium Carbonate-Vitamin D (Calcium + D), 600 MG PO BID Celecoxib (Celebrex), 100 MG PO BID Gabapentin (Gabapentin), 600 MG PO BID Hydroxychloroquine Sulfate (Hydroxychloroquine Sulfat), 200 MG PO BID Levothyroxine Sodium (Levothyroxine Sodium), 125 MCG PO DAILY Nitrofurantoin Macrocrystals (Macrodantin), 100 MG PO DAILY Oxycodone HCl (Oxycontin), 20 MG PO BID Oxycodone/Acetaminophen 5MG/325MG (Percocet 5MG/325MG), 2 TABLETS PO TID Prazosin Hcl (Prazosin), 2 MG PO BID Prednisone (Prednisone), 7 MG PO DAILY Rabeprazole Sodium (Aciphex), 20 MG PO DAILY Sertraline (Zoloft), 150 MG PO HS Triamterene/Hctz (Dyazide 37.5MG/25MG), 1 CAPSULE PO QAM Warfarin Sod (Jantoven), 6 MG PO DAILY Scheduled PRN Diclofenac Sodium (Topical) (Voltaren 1% Top Gel), 1 APPLN TOP BID PRN for Pain Zolpidem Tartrate (Ambien), 1 TAB PO HS PRN for Sleep Physical Exam Vital Signs Date Time Temp Pulse Resp B/P (MAP) Pulse Ox O2 Delivery O2 Flow Rate FiO2 12/14/17 14:06 36.5 80 18 154/78 97 12/14/17 14:05 80 154/78 12/14/17 13:25 80 97 12/14/17 13:20 161/78 12/14/17 13:17 90 94 Room Air 12/14/17 13:11 85 18 154/73 94 Room Air 12/14/17 12:45 Room Air 12/14/17 12:42 154/103 12/14/17 12:41 90 20 12/14/17 12:36 85 18 140/90 100 Room Air 12/14/17 12:32 153/77 12/14/17 12:31 90 19 12/14/17 12:30 Room Air 12/14/17 12:27 166/65 12/14/17 12:25 85 17 100 12/14/17 12:21 164/92 12/14/17 12:20 86 14 98 12/14/17 12:16 163/78 12/14/17 12:15 86 20 100 12/14/17 12:15 Nasal Cannula 2.0 12/14/17 12:10 87 18 99 12/14/17 12:07 150/87 12/14/17 12:05 91 20 98 12/14/17 12:02 95 Nasal Cannula 2.0 12/14/17 12:01 184/91 12/14/17 12:00 86 18 98 Nasal Cannula 2.0 12/14/17 11:55 95 Nasal Cannula 2.0 12/14/17 11:55 95 Nasal Cannula 2.0 12/14/17 11:42 78 18 175/65 93 Room Air 12/14/17 11:26 81 12/14/17 11:05 36.5 76 22 141/56 94 Room Air Physical Exam VITAL SIGNS - Vital signs and nursing notes were reviewed. Stable upon arrival. GENERAL -72-year-old female appearing her stated age who is in no acute distress. Communicates well with provider and answers questions appropriately. SKIN - The color of the left upper extremity, at the dependent portion of the hand does elicit a decreased color response, is dusky in appearance and is becoming pale. There is a small abrasion noted to the left lateral anterior shoulder as well as the left lateral orbital bone region. No bleeding. HEAD - NC/AT. No kuhn signs or raccoon's eyes. EYES - PERRL with EOMI bilaterally. Sclera anicteric. No hyphema. EARS - No deformities of external structures noted on gross examination bilaterally. No blood from the ear canals. NOSE - Midline and without cyanosis. No epistaxis or purulent drainage noted. MOUTH/OROPHARYNX - Without perioral cyanosis. NECK - Neck with FROM. Supple to palpation. No nuchal rigidity. No C-spine tenderness. LUNGS - Chest wall symmetric without accessory muscle use, intercostals retractions, or central cyanosis. Normal vesicular breath sounds CTA B/L. No wheezes, rales, or rhonchi appreciated. CARDIAC - RRR with S1/S2. No murmur, rubs, or gallops appreciated. ABDOMEN - Abdominal contour normal without pulsations or visible masses. No abdominal tenderness. EXTREMITIES - No clubbing or peripheral cyanosis. No pretibial edema present. + 5/5 strength noted in UE/LE bilaterally. Left upper extremity does elicit decreased slate splitter strength and no pulse. NEUROLOGIC - Cranial nerves II through XII grossly intact. Sensory intact to light touch throughout. Exceptions are that in the left upper extremity eliciting numbness/decreased sensation in the left lower extremity, particularly the hand. And decreased range of motion. PSYCH - A&O, and cooperates fully with examiner. Pt is very pleasant and interacts well with examiner. Medical Decision & Procedures ER Provider Diagnostic Interpretation: LEFT SHOULDER 2 VIEWS CLINICAL HISTORY: Fall with left shoulder injury. FINDINGS: 2 portable views of the left shoulder are obtained. No prior studies are available for comparison at the time of dictation. The skeletal structures are osteopenic. Findings consistent with anterior shoulder dislocation. No fracture is clearly seen. Bony overgrowth is suggested along the inferior aspect of the glenoid. The acromioclavicular joint is maintained. Mild overlying soft tissue edema is identified. The visualized left lung parenchyma appears clear. Healed left-sided rib fractures are noted. IMPRESSION: Findings are consistent with anterior shoulder dislocation. No acute fracture is clearly seen. Electronically signed by: Damon Cardona M.D. 12/14/2017 11:34 AM Dictated Date/Time: 12/14/2017 11:31 AM L SHOULDER MIN 2 VIEWS ROUTINE CLINICAL HISTORY: 72 years-old Female presenting with L shoulder relocation s/p reduction. TECHNIQUE: Frontal and transscapular Y views of the left shoulder were obtained. COMPARISON: 12/14/2017. FINDINGS: There has been interval reduction of the previously noted anterior dislocation of the left humeral head. No residual subluxation of the humeral head. No gross evidence of a displaced fracture. Glenohumeral and acromioclavicular joints congruent. No advanced degenerative change though mild degenerative changes of the glenohumeral joint may be present. IMPRESSION: Successful reduction of the left anterior humeral dislocation. No gross evidence of a fracture. Electronically signed by: Blake Adame M.D. 12/14/2017 12:24 PM Dictated Date/Time: 12/14/2017 12:[address] HEAD WITHOUT CONTRAST (CT) CLINICAL HISTORY: Head pain status post trauma COMPARISON STUDY: 04/30/2015 TECHNIQUE: Axial CT of the brain is performed from the vertex to the skull base. IV contrast was not administered for this examination. A dose lowering technique was utilized adhering to the principles of ALARA. CT DOSE: 788.63 mGycm FINDINGS: No intra or extra-axial mass lesions are visualized. There is no CT evidence of acute cortical infarction. There is no evidence of midline shift. There is no acute hemorrhage. No calvarial fractures are visualized. There are patchy white matter hypodensities likely on a small vessel basis. 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 There is no evidence of pathologic ventricular dilatation. There is no evidence of acute sinusitis IMPRESSION: No acute intracranial findings Electronically signed by: Jeff Carr M.D. 12/14/2017 1:06 PM Dictated Date/Time: 12/14/2017 1:04 PM [~ rep ct add3]] CERVICAL SPINE W/O CLINICAL HISTORY: 72 years-old Female presenting with Fall, head and neck pain. TECHNIQUE: Multidetector CT of the cervical spine was performed without the use of intravenous contrast. IV contrast: None. A dose lowering technique was used consistent with the principles of ALARA (as low as reasonably achievable). COMPARISON: None. CT DOSE (mGy.cm): The estimated cumulative dose is 439.01 mGycm. FINDINGS: Service Counter Cashier topogram: Unremarkable. Suboptimal positioning limits evaluation. Additionally 5 mm of grade 2 anterolisthesis of C3 on C4 alters normal cervical alignment. This also causes focal spinal canal narrowing at this level. This appears to be degenerative in etiology as no acute fracture is evident. No acute subluxation. Compression deformity of the left facet of C3 may imply a chronic fracture deformity. No evidence of a perched facet. Remaining vertebral body levels demonstrate grossly normal alignment. Vertebral body heights are essentially maintained. Significant intervertebral disc height loss at C3-4 with endplate cystic change. Disc height loss also noted to varying degrees at the remaining levels with disc osteophyte complexes. Rotatory subluxation of C1 on C2 likely positional. Extensive disc osteophyte complexes/uncovertebral hypertrophy in combination with facet arthropathy result in varying degrees of osseous neural foraminal narrowing. Skull base intact. Lung apices clear. Paraspinal soft tissues normal allowing for noncontrast technique. Atherosclerosis. IMPRESSION: 1. No convincing evidence of an acute osseous injury. 2. Multilevel degenerative changes with varying degrees of osseous neural foraminal narrowing. 3. Grade 2 anterolisthesis of C3 on C4 with deformity of the left facet of C3. This may be degenerative in etiology or imply a chronic fracture deformity. Electronically signed by: Blake Adame M.D. 12/14/2017 1:12 PM Dictated Date/Time: 12/14/2017 1:05 PM Laboratory Results 12/14/17 11:17 Red Blood Count 4.50, Mean Corpuscular Volume 87.6, Mean Corpuscular Hemoglobin 28.9, Mean Corpuscular Hemoglobin Concent 33.0, Mean Platelet Volume 10.3, Neutrophils (%) (Auto) 79.4, Lymphocytes (%) (Auto) 12.9, Monocytes (%) (Auto) 3.9, Eosinophils (%) (Auto) 2.8, Basophils (%) (Auto) 0.7, Neutrophils # (Auto) 8.02, Lymphocytes # (Auto) 1.30, Monocytes # (Auto) 0.39, Eosinophils # (Auto) 0.28, Basophils # (Auto) 0.07 12/14/17 11:17 Test 12/14/17 11:17 12/14/17 11:39 White Blood Count 10.09 K/uL (4.8-10.8) Red Blood Count 4.50 M/uL (4.2-5.4) Hemoglobin 13.0 g/dL (12.0-16.0) Hematocrit 39.4 % (37-47) Mean Corpuscular Volume 87.6 fL (80-100) Mean Corpuscular Hemoglobin 28.9 pg (25-34) Mean Corpuscular Hemoglobin Concent 33.0 g/dl (32-36) Platelet Count 261 K/uL (130-400) Mean Platelet Volume 10.3 fL (7.4-10.4) Neutrophils (%) (Auto) 79.4 % Lymphocytes (%) (Auto) 12.9 % Monocytes (%) (Auto) 3.9 % Eosinophils (%) (Auto) 2.8 % Basophils (%) (Auto) 0.7 % Neutrophils # (Auto) 8.02 K/uL (1.4-6.5) Lymphocytes # (Auto) 1.30 K/uL (1.2-3.4) Monocytes # (Auto) 0.39 K/uL (0.11-0.59) Eosinophils # (Auto) 0.28 K/uL (0-0.5) Basophils # (Auto) 0.07 K/uL (0-0.2) RDW Standard Deviation 46.6 fL (36.4-46.3) RDW Coefficient of Variation 14.4 % (11.5-14.5) Immature Granulocyte % (Auto) 0.3 % Immature Granulocyte # (Auto) 0.03 K/uL (0.00-0.02) Prothrombin Time 25.4 SECONDS (9.0-12.0) Prothromb Time International Ratio 2.5 (0.9-1.1) Activated Partial Thromboplast Time 35.5 SECONDS (21.0-31.0) Partial Thromboplastin Ratio 1.4 Est Creatinine Clear Calc Drug Dose 66.8 ml/min Estimated GFR () 74.1 Estimated GFR (Non- 63.9 BUN/Creatinine Ratio 24.5 (10-20) Calcium Level 9.0 mg/dl (8.5-10.1) Total Bilirubin 0.4 mg/dl (0.2-1) Aspartate Amino Transf (AST/SGOT) 18 U/L (15-37) Alanine Aminotransferase (ALT/SGPT) 17 U/L (12-78) Alkaline Phosphatase 72 U/L (45-117) Total Protein 7.0 gm/dl (6.4-8.2) Albumin 3.6 gm/dl (3.4-5.0) Globulin 3.4 gm/dl (2.5-4.0) Albumin/Globulin Ratio 1.1 (0.9-2) Bedside Hemoglobin 12.9 g/dl (12.0-16.0) Bedside Hematocrit 38 % (37-47) Bedside Sodium 136 mEq/L (135-144) Bedside Potassium 4.2 mEq/L (3.3-5.0) Bedside Chloride 98 mEq/L (101-112) Bedside Total CO2 29 mEq/l (24-31) Anion Gap 14.0 mmol/L (16-25) Bedside Blood Urea Nitrogen 22 mg/dl (7-18) Bedside Creatinine 1.0 mg/dl (0.6-1.3) Bedside Glucose (other) 166 mg/dl (70-99) Bedside Ionized Calcium (Misti) 1.12 mmol/l (1.12-1.32) Medications Administered Medications (Trade) Dose Ordered Sig/Saima Route Start Time Stop Time Status Last Admin Dose Admin Fentanyl Citrate (Fentanyl Inj) 50 mcg NOW STAT IV 12/14/17 11:06 12/14/17 11:07 DC 12/14/17 11:06 50 MCG Ondansetron HCl (Zofran Inj) 4 mg NOW STAT IV 12/14/17 11:06 12/14/17 11:07 DC 12/14/17 11:06 4 MG Fentanyl Citrate (Fentanyl Inj) 50 mcg NOW STAT IV 12/14/17 11:25 12/14/17 11:26 DC 12/14/17 11:15 50 MCG Propofol (Diprivan Iv Emulsion 20ml Vial) 80 mg NOW STAT IV 12/14/17 11:36 12/14/17 11:38 DC 12/14/17 12:01 120 MG Diphtheria/ Pertussis/Tetanus Vacc (Adacel Inj) 0.5 ml ONCE ONCE IM. 12/14/17 13:45 12/14/17 13:46 DC 12/14/17 13:47 0.5 ML Medical Decision Patient was seen and evaluated as above in room C2, and then for reduction was placed in a1. Review was performed of nursing notes and vital signs. After obtaining a thorough history and physical examination the above work up was performed. She presents to us today with suspected left anterior shoulder dislocation s/p L anterior shoulder dislocation. This was verified with radiograph. There was subsequent left upper extremity neurovascular compromise. Attending physician promptly came to bedside and a phone call was placed to orthopedics. I discussed the case with Dr. Get Broussard at 11 :20 AM. I was then called back shortly thereafter and the decision was to allow us to reduce here with orthopedic follow-up. This seems reasonable. Patient has an emergent need for sedation/reduction. This after discussing benefit versus risks was performed. Timeout was taken. There was successful reduction of the patient's left shoulder dislocation with gentle traction at the elbow region as well as across the superior torso in the opposite direction. It reduced without difficulty. Patient was awakened and had good neurovascular status. No concerning leukocytosis or concerning anemia on blood work. No concerning metabolic abnormality. CT was performed of her head and neck because of the Coumadin and the fall. No new findings from today's fall however there is an old parietal stroke noted. I do not feel that this fall occurred because of this but do believe that reasonable follow-up should occur. I did discuss this with the attending physician and then I called the patient' s family doctor's office. I spoke with an individual from Dr. Vila's office. They note that they will relay the information to him/1 of the PAs. The patient was also informed upon this. Again no signs of stroke. She appears stable for outpatient management. She has pain meds at home. I did discuss with orthopedics that she is to follow-up in the outpatient setting of which they are in agreement with. She is to return with worsening. Good neurovascular status upon discharge. The patient was educated upon management, had questions answered prior to discharge, and was discharged home in good condition. Case was discussed with the attending physician who performed sedation. I attest that I have personally reviewed the patient medication list. I attest that I have reviewed the patient's blood pressure and it was found to be elevated likely secondary to situation. In the evaluation and treatment of this patient, the following differential diagnoses were considered: Shoulder Contusion, Shoulder Fracture, Shoulder Dislocation, Thoracic Outlet Syndrome, Adhesive Capsulitis, Rotator Cuff Tear, Proximal Clavicle Head Fracture, Apical Pneumonia, Pneumothorax, Hemothorax, or TB, Closed Head Injury, Concussion, Contrecoup Injury, Brain Tumor, Depression , Encephalitis, Hypothyroidism, Meningitis, CVA, TIA, Migraine, Cluster Headache , Intracranial Abnormality, Intracranial Hemorrhage, Subdural Hematoma, Subarachnoid Hemorrhage, Hydrocephalus, Musculoskeletal Strain, Discitis, Cervical Spine Fracture, Cervical Spine Dislocation, Cervical Spine Subluxation , Cervical Spondylosis, Fibromyalgia, Osteoarthritis, Polymyalgia Rheumatica, Psychogenic Pain Disorder, Tumor of Soft Tissue or Spine, amoung others. Impression Primary Impression: Fall Additional Impression: Anterior shoulder dislocation Departure Information Dispostion Home / Self-Care Condition GOOD Referrals Rip Vila M.D. (PCP) Eric Martinez M.D. Forms Adult Anesthesia/Sedation, HOME CARE DOCUMENTATION FORM, IMPORTANT VISIT INFORMATION Patient Instructions My [facility] Additional Instructions You have been treated in the Emergency Department for Shoulder Pain and a fall with a shoulder dislocation. You have received pain medicine in the emergency department which impairs your ability to operate a vehicle. It is illegal for you to drive after receiving these medicines. Please call your family doctor regarding your visit today, and schedule follow up. You may continue your regular medications If this is a recent injury (<24 hrs), ice can be applied to the area of pain for the first 3 days to help decrease pain and inflammation. You have been provided the number for an Orthopaedic Surgeon. You should call this number as soon as possible to establish a follow-up visit from today's Emergency Department visit. Keep the shoulder brace/sling in place until evaluated by Orthopedics. Continue to perform range of motion exercises several times per day to help prevent the development of a "frozen shoulder". Return to the Emergency Department if your current symptoms worsen despite treatment course outlined above, or if you develop any of the following symptoms : intractable pain despite aforementioned treatment course or new onset of numbness or tingling of the arm. Problem Qualifiers
[2017-12-14 14:06] VITALS: BP 154/78; PULSE 80; TEMP 36.5; O2SAT 97
--- NOTE | 2017-12-15 07:58 | CONSULTATION REPORT ---
DATE OF CONSULTATION: 12/14/2017 CHIEF COMPLAINT: Left shoulder pain. HISTORY OF PRESENT ILLNESS: The patient is a 72-year-old white female who came to the Emergency Room today after falling. She apparently was going into her [facility] to have an INR draw when she stumbled and fell to the ground facing forward. She ended up having severe pain in the left shoulder and was unable to move the shoulder. She was brought to the Emergency Room and was seen by the staff. X-rays were taken and found that she had anterior dislocation of the left shoulder. At that time, her neurovascular status was assessed and it was noted that she had [id number] pulse in the left upper extremity and that the hand was blanching white at times. She had some decreased sensation and tingling and decreased range of motion of the hand. I was called to help assess the patient, at which time Dr. Broussard who was on-call was notified and asked the Emergency Room to go ahead and attempt a closed reduction of the left shoulder dislocation. Upon my arrival, the ER staff were preparing for conscious sedation and speaking with the patient. She had better color in her hand, capillary refill was sluggish and stated that the feeling in her hand was somewhat better, but she still had some numbness and tingling in the fingertips. She was able to move the fingers and the thumb without difficulty. Dr. Euceda who was present at the time stated that she found that it was positional, and when the arm was placed in a better position, that her neurovascular status improved. The patient continued to complain of 10/10 pain and at that point Dr. Euceda administered conscious sedation, and using the traction-countertraction method, Norman Mcgowan PA-C, successfully applied traction to the arm and the left shoulder dislocation was reduced successfully. As the patient began to awaken, she stated that her shoulder felt much better and she was having much less pain and that she continued to have better feeling in her hand and fingers. Post reduction xrays showed the dislocated shoulder to be reduced. I discussed with the patient's and with her daughter that they would need to continue a sling for 2 weeks of the left upper extremity, ice to the left shoulder and to watch for increased swelling due to her being on Coumadin. If swelling began to worsen, then she was to return to the Emergency Room. It was discussed that she was to use the sling at all times and only remove it for changing clothes or bathing, but otherwise she is not to move the shoulder. The patient recovered well from her conscious sedation, and prior to her discharge, I was contacted by Norman Mcgowan PA-C, letting me know that although she still had just slight tingling in her fingers, she was otherwise doing well with good strengths in the hand and good capillary refill, and plans were for the patient to follow up with Dr. Martinez in 2 weeks. ESA
--- NOTE | 2017-12-15 08:26 | EDITING REQUIRED CODING QUERY ---
CODING QUERY To promote full compliance with coding requirements relating to patient care, provider participation is requested in all cases of senior oracle soa developer uncertainty. Please assist us with the question(s) below: Coding Question(s): PLEASE DOCUMENT TIMES THAT CLOSED REDUCTION PROCEDURE WAS PERFORMED. THIS IS NOT LISTED IN NOTE. Physician's Response(s): Thank you Adelia Millery Principal Diagnosis: "_that condition established after study, to be chiefly responsible for occasioning the admission of the patient to the hospital for care." Co-Existing Principal Diagnosis: "_when two or more diagnoses equally meet the criteria for principal diagnosis as determined by the circumstances of admission, diagnostic work up, and/or therapy provided, and the Alphabetic Index, Tabular List, or another coding guideline does not provide sequencing direction, any one of the diagnoses may be sequenced first." "When the physician has documented what appears to be a current diagnosis in the body of the record, but has not included the diagnosis in the final diagnostic statement, the physician should be asked whether the diagnosis should be added." ([facility] 2 QTR90. p3-4)
== END 2017-12-14 14:07 | disposition home or self-care (01) ==
LOC: EDBD 10:53 → C.EDC 10:58 → C.EDA 14:07
DX: M25.512 Pain in left shoulder (principal); S00.212A Abrasion of left eyelid and periocular area, initial encounter; W01.0XXA Fall on same level from slipping, tripping and stumbling without subsequent striking against object, initial encounter; Y92.531 Health care provider office as the place of occurrence of the external cause; F41.9 Anxiety disorder, unspecified; M19.90 Unspecified osteoarthritis, unspecified site; I10 Essential (primary) hypertension; K21.9 Gastro-esophageal reflux disease without esophagitis; M32.9 Systemic lupus erythematosus, unspecified; Z86.718 Personal history of other venous thrombosis and embolism; Z86.14 Personal history of Methicillin resistant Staphylococcus aureus infection; Z79.01 Long term (current) use of anticoagulants; Z83.3 Family history of diabetes mellitus; Z82.49 Family history of ischemic heart disease and other diseases of the circulatory system; Z23 Encounter for immunization

== ENCOUNTER → 2018-01-12 | Outpatient (CLI) | payer OTHER ==
[~2018-01-12] MED LIST changes: -DOXY100C2 PO
== END | disposition home or self-care (01) ==
LOC: C.LABSPEC 17:31
PROVIDERS: ATTEND Nurse Practitioner Adult Health
DX: N39.0 Urinary tract infection, site not specified (principal)

== ENCOUNTER → 2018-04-13 | Outpatient (CLI) | payer OTHER ==
--- NOTE | 2018-04-13 17:01 | DIAGNOSTIC IMAGING REPORT ---
R WRIST MIN 3 VIEWS ROUTINE HISTORY: 73 years-old Female RIGHT WRIST PAIN/EFFUSION chronic right wrist pain COMPARISON: None available TECHNIQUE: 3 views of the right wrist FINDINGS: Demineralized appearance of the bones. Widening of the scapholunate interval. 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 Corticated ossifications are seen about the carpus which may reflect fragmented osteophytes. There is mild circumferential soft tissue swelling about the wrist. No acute fracture or dislocation. IMPRESSION: 1. Mild soft tissue swelling without acute fracture or dislocation. 2. Demineralized appearance of the bones with degenerative changes as above. The above report was generated using voice recognition software. It may contain grammatical, syntax or spelling errors. Electronically signed by: Nakul Padilla M.D. 04/13/2018 4:59 PM Dictated Date/Time: 04/13/2018 4:57 PM
== END | disposition home or self-care (01) ==
LOC: C.RDSM 09:43
PROVIDERS: ATTEND Physician Assistant
DX: M25.531 Pain in right wrist (principal); M25.431 Effusion, right wrist

== ENCOUNTER → 2018-05-02 | Outpatient (CLI) | payer OTHER | END | disposition home or self-care (01) | LOC: C.LAB 15:06 | PROVIDERS: ATTEND Nurse Practitioner Family | DX: R30.0 Dysuria (principal) ==

== ENCOUNTER → 2018-05-12 | Day surgery (SDC) | payer OTHER ==
[2018-05-11 09:06] VITALS: Ht 175.3 cm; Wt 83.2 kg
[~2018-05-12] VITALS: Ht 175.3 cm; Wt 83.2 kg
[~2018-05-12] MED LIST changes: +BUPIVACAINE 0.25% 30 ML VIAL ONE; +IOPAMIDOL INJ 61% 15 ML VIAL ONE; +LIDOCAINE HCL 1% MPF 5 ML VIAL ONE
--- NOTE | 2018-05-12 13:55 | History & Physical Bridge - SC ---
H&P Re-Evaluation Bridge Note: I have examined the patient, reviewed the History & Physical and in the interval since the performance of the History & Physical I have noted the following changes of clinical significance: No changes noted
--- NOTE | 2018-05-12 14:16 | [facility] Post Operative Brief Note ---
Immediate Operative Summary Operative Date May 12, 2018. Pre-Operative Diagnosis 1. Chronic low back pain 2. Underlying scoliosis Post-Operative Diagnosis Same Procedure(s) Performed Bilateral Sacroiliac Joint Injection Surgeon Dr. Jessie Boston Branch Administrator Surgeon(s) None Estimated Blood Loss 0 Findings Consistent with Post-Op Diagnosis Specimens NA Drains None Anesthesia Type Local Complication(s) none Disposition Disposition:
--- NOTE | 2018-05-12 14:18 | Discharge Instructions ---
Discharge Instructions Date of Service May 12, 2018. Visit Reason for Visit: Sacroiliitis Discharge Discharge Diagnosis / Problem: low back pain Discharge Goals Goal(s): Decrease discomfort, Improve function Activity Recommendations Activity Limitations: resume your previous activity Anesthesia . Post Anesthesia Instructions: If you have had General Anesthesia or IV Sedation: * Do not drive today. * Resume driving when surgeon permits. * Do not make important decisions or sign legal documents today. * Call surgeon for: 1. Temperature elevations greater than 101 degrees F. 2. Uncontrollable pain. 3. Excessive bleeding. 4. Persistent nausea and vomiting. 5. Medication intolerance (nausea, vomiting or rash). * For nausea and vomiting use only clear liquids such as: tea, soda, bouillon until nausea subsides, then gradually increase diet as tolerated. * If you have any concerns or questions, call your surgeon's office. If physician is unavailable and it is an emergency, call 911 or go to the nearest emergency room. . Diet Recommendations Recommended Home Diet: resume previous diet Procedures Procedures Performed: Bilateral Sacroiliac Joint Injection Pending Studies Studies pending at discharge: no Medical Emergencies . Who to Call and When: Medical Emergencies: If at any time you feel your situation is an emergency, please call 911 immediately. . Non-Emergent Contact Non-Emergency issues call your: Specialist . . "Provider Documentation" section prepared by Iván Boston. .
[2018-05-12 14:25] VITALS: TEMP 36.9
[2018-05-12 14:31] VITALS: BP 140/66; PULSE 67; O2SAT 97
--- NOTE | 2018-05-12 14:38 | OPERATIVE REPORT ---
DATE OF OPERATION: 05/12/2018 PREOPERATIVE DIAGNOSES: Scoliosis, rheumatoid arthritis and bilateral sacroiliitis. POSTOPERATIVE DIAGNOSES: Scoliosis, rheumatoid arthritis and bilateral sacroiliitis. PROCEDURE: Bilateral sacroiliac joint injections under fluoroscopic guidance. INDICATIONS: The patient is a 73-year-old female with a past medical history of rheumatoid arthritis, scoliosis, and chronic low back pain. She has really localizing pain to the SI joints and presents today for injections into the joints to provide her with some relief as the pain will get as bad as a 10/10. PHYSICAL EXAMINATION: Pleasant female, seated comfortably. She has point tenderness to palpation over her SI joints, reproduction of pain with compression and pressure and positive Serafin maneuver bilaterally. CONSENT: Verbal and written consent was obtained from the patient. Risks and benefits were reviewed. Risks include but are not limited to abscess and allergic reaction. The patient wishes to proceed. DESCRIPTION OF PROCEDURE: The patient was taken back to the special procedures room of [facility]. She was maintained in a prone position. Backside was cleansed with Betadine x3 and a dry sterile dressing was applied. Fluoroscope was used to identify the left SI joint and the overlying skin was anesthetized with 2.5 mL of lidocaine 1% with a 25-gauge 1.5-inch needle. A 25-gauge 3.5-inch spinal needle was then directed under fluoroscopic guidance into the left SI joint. Isovue-300 contrast 0.25 mL demonstrated intraarticular placement. She then underwent injection after negative aspiration of 40 mg Depo-Medrol and 1.5 mL of bupivacaine 0.25%. The right SI joint was then fluoroscopically identified and the overlying skin was anesthetized with 2.5 mL of lidocaine 1% 25-gauge 1.5-inch needle. A 25-gauge 3.5 inch spinal needle was then directed under fluoroscopic guidance into the joint. Isovue-300 contrast 0.25 mL was injected in which demonstrated intraarticular uptake. She then underwent injection after negative aspiration of 40 mg of Depo-Medrol and 1.5 mL of bupivacaine 0.25%. Injection was well tolerated. DISPOSITION: 1. The patient is taken out into the discharge recovery area where she will be discharged home once discharge criteria are met. 2. Follow up in the [facility] office in 4 weeks' time. I attest to the content of the Intraoperative Record and any orders documented therein. Any exception s are noted below.
== END | disposition home or self-care (01) ==
LOC: X.SURG 12:59
PROVIDERS: ATTEND Physical Medicine & Rehabilitation
DX: M46.1 Sacroiliitis, not elsewhere classified (principal); M06.9 Rheumatoid arthritis, unspecified; M41.9 Scoliosis, unspecified; I10 Essential (primary) hypertension; D68.61 Antiphospholipid syndrome; E03.9 Hypothyroidism, unspecified; M19.90 Unspecified osteoarthritis, unspecified site; Z86.14 Personal history of Methicillin resistant Staphylococcus aureus infection; Z86.73 Personal history of transient ischemic attack (TIA), and cerebral infarction without residual deficits; Z91.040 Latex allergy status; Z88.0 Allergy status to penicillin; Z88.2 Allergy status to sulfonamides; Z79.01 Long term (current) use of anticoagulants; Z90.49 Acquired absence of other specified parts of digestive tract

== ENCOUNTER 2019-07-16 09:12 | Inpatient (IN) ==
[2019-07-16] MEDS ORDERED: SODIUM CHLORIDE 0.9% 1000ML 1,000 ML IV SCH (09:43)
--- NOTE | 2019-07-16 09:46 | Emergency Department Note ---
Entered by Roxy Ghosh acting as a scribe for Raymond Jones MD History of Present Illness General Chief complaint: Flank Pain Stated complaint: flank pain - left side, bladder infection Time Seen by Provider: 07/16/19 09:23 Source: patient History of Present Illness Onset (ago): day(s) 5 Location: left (flank) Severity: severe and similar to prior episodes Pain Consistency: + other (Persistent) Quality: + other (flank pain) Associated symptoms: + headaches, + loss of appetite, + nausea/vomiting, + weakness and + other (Positive dry heaving, dysuria, weight loss, abdominal pain. Negative recent falls, bloody stool. ); no chest pain and no shortness of breath The patient is a 74 year old female presenting to the Emergency Department complaining of persistent flank pain staring 5 days ago. The patient reports that she has severe left-sided back pain. She states that she is nauseous, vomiting and dry heaving. She explains that she is experiencing dysuria. She notes that she experiences intermittent headaches. She adds that she thinks she lost 5 pounds this past week because she has lost her appetite. The patient reports that her abdomen is moderately painful. She states that she has experie nces these symptoms before. She explains that she was recently prescribed antibiotics but that she hasnt taken them yet. The patients notes that the patient has lost her appetite and has been weak recently. She adds that she regularly takes Coumadin for previous blood clots. She denies recent falls, chest pain, shortness of breath and bloody stool. Home Medications Home Medications Medication Instructions Recorded Confirmed Type prazosin 2 mg PO BID #0 03/04/10 07/16/19 History Calcium 600 + D(3) 600 mg PO DAILY #0 11/13/12 07/16/19 History levothyroxine [Synthroid] 125 mcg PO DAILY #0 06/17/13 07/16/19 History rabeprazole [AcipHex] 20 mg PO DAILY #0 tab 06/17/13 07/16/19 History diclofenac sodium [Voltaren] 1 applic TOPICAL BID PRN #0 09/14/17 07/16/19 History ondansetron HCl [Zofran] 4 mg PO BID PRN 06/27/18 07/16/19 History celecoxib 200 mg PO BID 06/29/18 07/16/19 History duloxetine 20 mg capsule,delayed 20 mg PO QPM cap 01/17/19 07/16/19 History release prednisone 1 mg tablet 7 mg PO DAILY #0 tab 05/02/19 07/16/19 History acyclovir 5 % topical ointment 1 applic TOPICAL UD #1 gm 05/03/19 07/16/19 History lidocaine 2 % mucosal jelly in 1 applic TOPICAL DAILY #1 ml 05/03/19 07/16/19 History applicator silver sulfadiazine 1 % topical 1 appln TOPICAL BID PRN #1 gm 05/05/19 07/16/19 History cream ketoconazole 2 % topical cream 1 applic TOPICAL DAILY #1 gm 05/09/19 07/16/19 History hydroxychloroquine 200 mg tablet 200 mg PO BID #180 tab 05/23/19 07/16/19 Rx warfarin 1 mg tablet See Rx Instructions PO UD tab 06/06/19 07/16/19 History warfarin 5 mg tablet See Rx Instructions PO UD tab 06/06/19 07/16/19 History hydrochlorothiazide 25 mg tablet 25 mg PO DAILY #90 tab 07/03/19 07/16/19 Rx oxycodone ER 20 mg tablet,crush 20 mg PO Q12H #60 tab 07/10/19 07/16/19 Rx resistant,extended release 12 hr oxycodone-acetaminophen 5 mg-325 2 tab PO TID PRN #90 tab 07/10/19 07/16/19 Rx mg tablet acetaminophen 500 mg capsule 500 mg PO QAM PRN cap 07/11/19 07/16/19 History alprazolam 0.25 mg tablet 0.25 mg PO QID #120 tab 07/11/19 07/16/19 Rx nitrofurantoin macrocrystal 50 mg 50 mg PO DAILY #90 cap 07/11/19 07/16/19 History capsule cefuroxime axetil 500 mg tablet 500 mg PO BID 5 Days #10 tab 07/14/19 07/16/19 Rx Allergies Allergy/AdvReac Type Severity Reaction Status Date / Time bacitracin Allergy Intermediate hives Verified 07/10/19 15:08 Bactrim Allergy Intermediate hives Verified 05/11/18 09:19 latex Allergy Intermediate SWELLING Verified 07/10/19 15:08 sulfamethoxazole Allergy Intermediate hives Verified 07/10/19 15:08 trimethoprim Allergy Intermediate hives Verified 07/10/19 15:08 Aquaphor OINT Allergy Uncoded 07/10/19 15:08 Calmoseptine OINT Allergy Uncoded 07/10/19 15:08 Tetracyclines Allergy Uncoded 07/10/19 15:08 Past Med/Surg History Medical History Abdominal wall abscess (Chronic) Ankle joint pain (Chronic) Antiphospholipid antibody syndrome (Chronic) Depression with anxiety (Chronic) Herpes simplex type 1 infection (Chronic) History of long-term treatment with high-risk medication (Chronic) Hyperglycemia (Chronic) Leg pain (Chronic) 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) Lower limb ulcer, ankle (Chronic) MRSA infection (Chronic) Multiple drug allergies (Chronic) Nocturia (Chronic) Osteoarthritis (Chronic) Osteopenia (Chronic) Pain of foot (Chronic) Peripheral neuropathy (Chronic) Peripheral vascular disease (Chronic) Pigmented skin lesion (Chronic) Positive DAYANARA (antinuclear antibody) (Chronic) Postmenopausal atrophic vaginitis (Chronic) Stress incontinence in female (Chronic) Urinary frequency (Chronic) Urinary incontinence (Chronic) Urinary urgency (Chronic) Vitamin D deficiency (Chronic) HTN (hypertension) PAD (peripheral artery disease) (Chronic) Rheumatoid arthritis (Chronic) Chronic myofascial pain (Chronic) GERD (gastroesophageal reflux disease) (Chronic) Hypothyroidism (Chronic) Anxiety (Chronic) Arthritis (Chronic 04/08/13) RHEUMATOID Lumbar pain (Acute) Heart murmur (Acute) History of Mohs micrographic surgery for skin cancer (Acute) History of dislocation of shoulder (Acute) Abdominal hernia History of DVT (deep vein thrombosis) Lupus Surgical History History of cataract surgery (Acute) History of endarterectomy (Acute) History of hernia repair (Acute) History of ligation of vein (Acute) History of surgical procedure on eye proper using laser (Acute) History of ventral hernia repair (Acute) History of appendectomy Family History Mother Hypertension Social History Preferred Language: [place]ian Communication Ability: Effective Visual Impairment: No Limitations Hearing Ability: Normal Teacher Vocational Training Required: No Beliefs That Will Affect Care: None marital status: Current Living Situation: Spouse Other Information That Helps Us Care for You: No Feels Safe at Home: Yes Safety Concerns: Feels Safe At This Time Smoking Status: Never smoker Second Hand Exposure: No ; Hx Alcohol Use: No Hx Substance Use: No Review of Systems See HPI for pertinent positives & negatives. and A total of 10 systems reviewed and were otherwise negative Physical Exam Vital Signs Vital Signs - 24 hr 07/16/19 09:15 07/16/19 10:08 07/16/19 10:10 Temperature 36.5 C Temperature Source Oral Sepsis Recent Fever Within 48 Hours No Sepsis New/Unexplained Change in Mental Status No Sepsis Action Taken by Nursing No Action Required Pulse Rate 89 Pulse Rate [Left Finger] 85 Respiratory Rate 20 20 Blood Pressure 126/72 Blood Pressure [Left Arm] 118/60 Blood Pressure Mean 90 Blood Pressure Mean [Left Arm] 79 Pulse Oximetry 95 99 96 Oxygen Delivery Method Room Air Room Air Room Air 07/16/19 10:55 07/16/19 11:50 Temperature Temperature Source Sepsis Recent Fever Within 48 Hours Sepsis New/Unexplained Change in Mental Status Sepsis Action Taken by Nursing Pulse Rate Pulse Rate [Left Finger] 80 86 Respiratory Rate 18 18 Blood Pressure Blood Pressure [Left Arm] 107/60 125/54 L Blood Pressure Mean Blood Pressure Mean [Left Arm] 75 77 Pulse Oximetry 98 96 Oxygen Delivery Method Room Air Room Air General: Chronically-ill appearing older female in no acute distress. HEENT: Normal cephalic atraumatic. Pupils are equal round and reactive to light. Extraocular movements are intact. Oropharynx is pink with moist mucous membranes. No swelling of the mouth lips or tongue. Neck: Supple with a midline trachea. No meningeal signs or stiffness, no JVD or bruits. No Stridor. Chest: Clear to auscultation bilaterally. No wheezes or rhonchi. No increased work of breathing. Heart: regular rate and rhythm. Abdomen: Abdomen is mildly tender to suprapubic area. Soft, nondistended without rebound guarding or rigidity. Extremities: No cyanosis clubbing or edema. No calf tenderness or asymmetry Spine/Back. Non tender to palpation. No CVA tenderness Skin: Good turgor without rashes. Neurologic exam: Cranial nerves two through 12 are intact. Motor and sensation are intact and symmetrical throughout. Course 924: The patient was evaluated in room B5, and a complete history and physical examination were performed. 0932: EMR reviewed. Patient is on Macrobid prophylactically. Chronic renal insufficiency. 1130: I discussed the patient case with Dr. Terry [facility] hospitalist. He will evaluate the patient for further management. Administered Medications Discontinued Medications Sodium Chloride (Nss 1000ml) 1,000 mls @ 999 mls/hr IV .[id number] BRIANNA Stop: 07/16/19 10:43 Last Infusion: 07/16/19 12:23 Dose: 0 mls/hr Documented by: [id number] Admin: 07/16/19 10:12 Dose: 999 mls/hr Documented by: [id number] Ceftriaxone Sodium (Rocephin) 2,000 mg in 70 mls @ 140 mls/hr IV NOW STA Stop: 07/16/19 11:56 Last Infusion: 07/16/19 12:23 Dose: 0 mls/hr Documented by: [id number] Admin: 07/16/19 11:34 Dose: 140 mls/hr Documented by: [id number] Ondansetron HCl (Zofran) 4 mg IV NOW STA Stop: 07/16/19 11:20 Last Admin: 07/16/19 11:26 Dose: 4 mg Documented by: [id number] Medical Decision Making Differential Diagnosis Differentials include dehydration, UTI, electrolyte or metabolic abnormality, sepsis and bleeding amongst others. Medical Records Attestation: I reviewed the patient's medical records. Home Medications Current Medication List: was personally reviewed by me Laboratory Data Attestation: I reviewed the patient's lab results. Result diagrams: 07/16/19 10:05 07/16/19 10:05 Lab Results 07/16/19 07/16/19 07/16/19 Range/Units 10:05 10:05 10:05 WBC 13.22 H (4.8-10.8) K/uL RBC 4.74 (4.2-5.4) M/uL Hgb 13.4 (12.0-16.0) g/dL Hct 38.7 (37-47) % MCV 81.6 (80-100) fL MCH 28.3 (25-34) pg MCHC 34.6 (32-36) g/dL RDW Std Deviation 41.6 (36.4-46.3) fL RDW Coeff of Fernando 13.8 (11.5-14.5) % Plt Count 296 (130-400) K/uL MPV 10.0 (7.4-10.4) fL Immature Gran % (Auto) 0.6 % Neut % (Auto) 86.4 % Lymph % (Auto) 4.5 % [place] % (Auto) 7.9 % Eos % (Auto) 0.4 % Baso % (Auto) 0.2 % Immature Gran # (Auto) 0.08 H (0.00-0.02) K/uL Neut # (Auto) 11.42 H (1.4-6.5) K/uL Lymph # (Auto) 0.60 L (1.2-3.4) K/uL [place] # (Auto) 1.05 H (0.11-0.59) K/uL Eos # (Auto) 0.05 (0-0.5) K/uL Baso # (Auto) 0.02 (0-0.2) K/uL PT 26.4 H (9.0-12.0) Seconds INR 2.8 H (0.9-1.1) APTT 39.1 H (21.0-31.0) Seconds PTT Ratio 1.4 Sodium 125 L (136-145) mmol/L Potassium 3.2 L (3.5-5.1) mmol/L Chloride 85 L (98-107) mmol/L Carbon Dioxide 32 (21-32) mmol/L Anion Gap 8.0 (3-11) BUN 15 (7-18) mg/dl Creatinine 1.08 (0.6-1.2) mg/dl Est Cr Clr Drug Dosing Not Reportable Est GFR ( Amer) 59.4 Est GFR (Non-Af Amer) 51.2 BUN/Creatinine Ratio 13.6 (10-20) Glucose 137 H (70-99) mg/dl Lactate (0.4-2.0) mmol/L Calcium 9.0 (8.5-10.1) mg/dl Total Bilirubin 0.5 (0.2-1) mg/dl AST 18 (15-37) U/L ALT 18 (12-78) U/L Alkaline Phosphatase 73 (45-117) U/L Total Protein 6.7 (6.4-8.2) gm/dl Albumin 3.6 (3.4-5.0) gm/dl Globulin 3.1 (2.5-4.0) gm/dl Albumin/Globulin Ratio 1.2 (0.9-2) Procalcitonin (0-0.5) ng/ml 07/16/19 07/16/19 Range/Units 10:05 10:05 WBC (4.8-10.8) K/uL RBC (4.2-5.4) M/uL Hgb (12.0-16.0) g/dL Hct (37-47) % MCV (80-100) fL MCH (25-34) pg MCHC (32-36) g/dL RDW Std Deviation (36.4-46.3) fL RDW Coeff of Fernando (11.5-14.5) % Plt Count (130-400) K/uL MPV (7.4-10.4) fL Immature Gran % (Auto) % Neut % (Auto) % Lymph % (Auto) % [place] % (Auto) % Eos % (Auto) % Baso % (Auto) % Immature Gran # (Auto) (0.00-0.02) K/uL Neut # (Auto) (1.4-6.5) K/uL Lymph # (Auto) (1.2-3.4) K/uL [place] # (Auto) (0.11-0.59) K/uL Eos # (Auto) (0-0.5) K/uL Baso # (Auto) (0-0.2) K/uL PT (9.0-12.0) Seconds INR (0.9-1.1) APTT (21.0-31.0) Seconds PTT Ratio Sodium (136-145) mmol/L Potassium (3.5-5.1) mmol/L Chloride (98-107) mmol/L Carbon Dioxide (21-32) mmol/L Anion Gap (3-11) BUN (7-18) mg/dl Creatinine (0.6-1.2) mg/dl Est Cr Clr Drug Dosing Est GFR ( Amer) Est GFR (Non-Af Amer) BUN/Creatinine Ratio (10-20) Glucose (70-99) mg/dl Lactate 1.4 (0.4-2.0) mmol/L Calcium (8.5-10.1) mg/dl Total Bilirubin (0.2-1) mg/dl AST (15-37) U/L ALT (12-78) U/L Alkaline Phosphatase (45-117) U/L Total Protein (6.4-8.2) gm/dl Albumin (3.4-5.0) gm/dl Globulin (2.5-4.0) gm/dl Albumin/Globulin Ratio (0.9-2) Procalcitonin < 0.05 (0-0.5) ng/ml Imaging Data Radiologist's Impression: Radiology results as stated below per my review and the radiologist's interpretation: CT abd pelvis wo con CT DOSE: 888.22 mGy.cm HISTORY: Flank pain left flank pain TECHNIQUE: Multiaxial CT images of the abdomen and pelvis were performed without contrast. A dose lowering technique was utilized adhering to the principles of ALARA. COMPARISON STUDY: 06/27/2018 FINDINGS: The previously described collection has shown near complete resolution. Chronic pleural and parenchymal changes at the lung bases are present. Configuration of the liver is unremarkable. Gallbladder is negative for diste ntion. Mild fatty replacement of the pancreas. Kidneys are considered negative for calcification or hydronephrosis. There is an unchanged lower pole left renal cyst. Nonobstructive bowel pattern. No evidence for free fluid within the abdominal or pelvic region. IMPRESSION: No acute process. Chronic change. Previous described collection has shown essentially complete resolution. The above report was generated using voice recognition software. It may contain grammatical, syntax or spelling errors. Electronically signed by: Fernando Smith M.D. 07/16/2019 10:44 AM XR chest 1V portable CLINICAL HISTORY: Sepsis COMPARISON STUDY: 04/30/2015 FINDINGS: The bones soft tissues and hemidiaphragms are normal. The cardiomediastinal silhouette is normal. The lungs are clear. The pulmonary vasculature is normal. Slight chronic blunting lateral costophrenic angles bilaterally IMPRESSION: No acute process The above report was generated using voice recognition software. It may contain grammatical, syntax or spelling errors. Electronically signed by: Fernando Smith M.D. 07/16/2019 9:55 AM Blood Pressure Blood Pressure Findings: Elevated blood pressure Blood Pressure Disposition: further management by hospitalist MDM Narrative This patient comes in as described above. She is placed in room B5. She has a very complex medical history and is on chronic steroids and anticoagulation. She does get frequent UTIs. She has some lower abdominal pain and dysuria she also some left flank pain however on exam she is not tender in the left flank. She also felt diffusely weak and tired she is afebrile here and has normal vital signs in triage. IV access established hydrate normal saline a full septic work-up was obtained and she was reassessed frequently. She had a urinalysis done on Wednesday which showed Klebsiella that was pansensitive to everything but Macrobid. She was given Rocephin IV here. Her blood work was also significant for a low sodium of 125. She was hydrated normal saline. I think that her sodium is also contributing to her weakness as is her UTI. I do think she needs to be admitted for IV hydration, IV antibiotics and further treatment and evaluation. I have consulted the [facility] hospitalist to see her in the ER for these measures for these measures Impression & Plan Sepsis, Hyponatremia, Acute UTI, Weakness Critical Care Time Critical Care Time: Yes Total Critical Care Time: 30 I have personally spent greater than 30 minutes of critical care time in the direct management of this patient. This includes bedside care, interpretation of diagnostic studies, and testing, discussion with consultants, patient, and family members, and other required patient management activities. This 30 minutes is in excess of all separately billable procedures. Discharge Plan Visit Data *Final* Discharge Date/Time: 07/16/19 14:05 Chief Complaint: Flank Pain Stated Complaint: flank pain - left side, bladder infection ED Provider: Raymond Jones Discharge Problem: Sepsis, Hyponatremia, Acute UTI, Weakness Patient Disposition: Admitted As Inpatient Discharge Instructions Interventions: ED Discharge Assessment Last Done: 07/16/19 14:05 The scribe's documentation has been prepared under my direction and personally reviewed by me in its entirety. I confirm that the note above accurately reflects all work, treatment, procedures, and medical decision making performed by me.
--- NOTE | 2019-07-16 09:56 | XRay Report ---
XR chest 1V portable CLINICAL HISTORY: Sepsis COMPARISON STUDY: 04/30/2015 FINDINGS: The bones soft tissues and hemidiaphragms are normal. The cardiomediastinal silhouette is n ormal. The lungs are clear. The pulmonary vasculature is normal. Slight chronic blunting lateral cost ophrenic angles bilaterally IMPRESSION: No acute process The above report was generated using voice recognition software. It may contain grammatical, syntax or spelling errors. Electronically signed by: Fernando Smith M.D. 07/16/2019 9:55 AM
[2019-07-16 10:20] LABS: Basophils # (auto) 0.02 K/uL (0-0.2); Basophils % (auto) 0.2 %; Eosinophils # (auto) 0.05 K/uL (0-0.5); Eosinophils % (auto) 0.4 %; Hematocrit (blood only) 38.7 % (37-47); Hemoglobin 13.4 g/dL (12.0-16.0); Immature Granulocytes # (auto) 0.08 K/uL (0.00-0.02); Immature Granulocytes % (auto) 0.6 %; Lymphocytes % (auto) 4.5 %; Mean Corpuscular Hemoglobin 28.3 pg (25-34); Mean Corpuscular Hgb Conc 34.6 g/dL (32-36); Mean Corpuscular Volume 81.6 fL (80-100); Monocytes # (auto) 1.05 K/uL (0.11-0.59); Monocytes % (auto) 7.9 %; Neutrophils # (auto) 11.42 K/uL (1.4-6.5); Neutrophils % (auto) 86.4 %; Platelet Count 296 K/uL (130-400); RDW Coefficient of Variation 13.8 % (11.5-14.5); RDW Standard Deviation 41.6 fL (36.4-46.3); Red Blood Count 4.74 M/uL (4.2-5.4); White Blood Count 13.22 K/uL (4.8-10.8)
[2019-07-16 10:35] LABS: INR 2.8 (0.9-1.1); Partial Thromboplastin Ratio 1.4; Partial Thromboplastin Time 39.1 Seconds (21.0-31.0); Prothrombin Time 26.4 Seconds (9.0-12.0)
[2019-07-16 10:36] LABS: Alanine Aminotransferase 18 U/L (12-78); Albumin Level 3.6 gm/dl (3.4-5.0); Aspartate Aminotransferase 18 U/L (15-37); BUN Creatinine Ratio 13.6 (10-20); Blood Urea Nitrogen 15 mg/dl (7-18); Carbon Dioxide 32 mmol/L (21-32); Chloride 85 mmol/L (98-107); Est GFR (African American) 59.4; Est GFR (Non-African American) 51.2; Glucose 137 mg/dl (70-99); Potassium 3.2 mmol/L (3.5-5.1); Sodium 125 mmol/L (136-145)
[2019-07-16 10:39] LABS: Albumin Globulin Ratio 1.2 (0.9-2); Alkaline Phosphatase 73 U/L (45-117); Bilirubin,Total 0.5 mg/dl (0.2-1); Globulin 3.1 gm/dl (2.5-4.0); Total Protein 6.7 gm/dl (6.4-8.2)
--- NOTE | 2019-07-16 10:45 | CT Scan Report ---
CT abd pelvis wo con CT DOSE: 888.22 mGy.cm HISTORY: Flank pain left flank pain TECHNIQUE: Multiaxial CT images of the abdomen and pelvis were performed without contrast. A dose lo wering technique was utilized adhering to the principles of ALARA. COMPARISON STUDY: 06/27/2018 FINDINGS: The previously described collection has shown near complete resolution. Chronic pleural and parenchymal changes at the lung bases are present. Configuration of the liver is unremarkable. Gallbladder is negative for distention. Mild fatty replacement of the pancreas. Kidneys are considered negative for calcification or hydronephrosis. There is an unchanged lower pole left renal cyst. Nonobstructive bowel pattern. No evidence for free fluid within the abdominal or pelvic region. IMPRESSION: No acute process. Chronic change. Previous described collection has shown essentially complete resolu tion. The above report was generated using voice recognition software. It may contain grammatical, syntax or spelling errors. Electronically signed by: Fernando Smith M.D. 07/16/2019 10:44 AM
[2019-07-16] MEDS ORDERED: ONDANSETRON INJ 2 MG/ML 2 ML VIAL IV STA (11:19)
[2019-07-16] MEDS ORDERED: cefTRIAXone SODIUM 2,000 MG/70 ML BAG IV STA (11:27)
--- NOTE | 2019-07-16 11:44 | History & Physical Report ---
Date of Service July 16, 2019 Assessment & Plan (1) UTI due to Klebsiella species: - Admit to [facility] [place] - Klebsiella pneumonia UTI from 07/14/19 outpt UCx - WBC elevated at 13.22, follow BCx x 2, afebrile but has been taking percocet for pain, may have masked fever, +chills and sweats on ROS - Start on IV rocephin, outpatient abx of nitrofurantoin did not work as culture came back as being resistant - CT abd/pelvis negative for acute findings - Will start on NSS at 100 ml/hr x 12 hours then stop with CHF and valvular issues - Supportive therapy - PT/OT consults (2) Antiphospholipid antibody syndrome: - Cont coumadin - Monitor daily INR while inpatient, today was 2.8 (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 - Caution with IVF, allow NSS as above for 12 hrs. (6) PAD (peripheral artery disease): - Anticoagulation as above (7) Hyponatremia: - 125 at on admission - NSS at 100ml/hr x 12 hrs, encourage PO intake, recheck with PRP at 1800 tonight and am labs. - Likely secondary to poor oral intake in past 3 days. (8) Hypokalemia: - 3.2 on admission, replace with 40 meq PO now, pt tolerating diet at bedside - Follow repeat PRP this evening and with am labs (9) Hypothyroidism: - Cont levothyroxine 125 mcg daily (10) Rheumatoid arthritis: - Continue prednisone 7 mg daily, hydroxycholoroquine 200 mg BID, pain medication as per UPHOLSTERY RESTORER list. (11) Chronic myofascial pain: - Continue pain control with duloxetine, celecoxib, percocet and oxycodone (12) Herpes simplex type 1 infection: - Continue rabeprazole 20 gm daily and acyclovir topically UD. No current outbreaks or flares. (13) GERD (gastroesophageal reflux disease): - Stable, not on PPI or H2 trent (14) Osteopenia: (15) Vitamin D deficiency: - Cont calcium and Vit D supplementation (16) Depression with anxiety: - Continue duloxetine 20 mg QAM, alprazolam 0.2 mg QID and prazosin 2 mg BID (17) DVT prophylaxis: - teds, continue coumadin CODE: FULL Dispo: From home, lives with , likely to remain in the hospital for 1-2 days for IV antibiotics, IV fluids, and further supportive care. History of Present Illness Primary Care Provider: Rip Vila MD This is a 74 yo F with PMHx of diastolic CHF, PAD, antiphospholipid antibody syndrome w/hx of arterial thrombosis and DVT on chronic anticoagulation with coumadin, hx MRSA, chronic myofascial pain, rheumatoid arthritis, hypothyroidism, who presents to the ER with flank pain. She notes not feeling well for about 3 days now with increased urinary frequency and dysuria, denies hematuria. She reports poor appetite as well as nausea when she tries to eat maikel ething. She reports feeling weak and tired. Denies issues with abdominal pain, constipation or diarrhea. She had a positive urine culture for Klebsiella pneumonia on 07/14/19, and was placed on nitrofurantoin prior to culture results, now that cultures are complete it shows this as resistant to that antibiotic, however is sensitive to others. The patient was started on rocephin IV here in the ER. She did take all her morning medications today. Her is present at bedside. WBC slightly elevated at 13.22, NA = 125, K+=3.2 Allergies Allergy/AdvReac Type Severity Reaction Status Date / Time bacitracin Allergy Intermediate hives Verified 07/10/19 15:08 Bactrim Allergy Intermediate hives Verified 05/11/18 09:19 latex Allergy Intermediate SWELLING Verified 07/10/19 15:08 sulfamethoxazole Allergy Intermediate hives Verified 07/10/19 15:08 trimethoprim Allergy Intermediate hives Verified 07/10/19 15:08 Aquaphor OINT Allergy Uncoded 07/10/19 15:08 Calmoseptine OINT Allergy Uncoded 07/10/19 15:08 Tetracyclines Allergy Uncoded 07/10/19 15:08 Home Medications Home Medications Medication Instructions Recorded Confirmed Type prazosin 2 mg PO BID #0 03/04/10 07/16/19 History Calcium 600 + D(3) 600 mg PO DAILY #0 11/13/12 07/16/19 History levothyroxine [Synthroid] 125 mcg PO DAILY #0 06/17/13 07/16/19 History rabeprazole [AcipHex] 20 mg PO DAILY #0 tab 06/17/13 07/16/19 History diclofenac sodium [Voltaren] 1 applic TOPICAL BID PRN #0 09/14/17 07/16/19 History ondansetron HCl [Zofran] 4 mg PO BID PRN 06/27/18 07/16/19 History celecoxib 200 mg PO BID 06/29/18 07/16/19 History duloxetine 20 mg capsule,delayed 20 mg PO QPM cap 01/17/19 07/16/19 History release prednisone 1 mg tablet 7 mg PO DAILY #0 tab 05/02/19 07/16/19 History acyclovir 5 % topical ointment 1 applic TOPICAL UD #1 gm 05/03/19 07/16/19 History lidocaine 2 % mucosal jelly in 1 applic TOPICAL DAILY #1 ml 05/03/19 07/16/19 History applicator silver sulfadiazine 1 % topical 1 appln TOPICAL BID PRN #1 gm 05/05/19 07/16/19 History cream ketoconazole 2 % topical cream 1 applic TOPICAL DAILY #1 gm 05/09/19 07/16/19 History hydroxychloroquine 200 mg tablet 200 mg PO BID #180 tab 05/23/19 07/16/19 Rx warfarin 1 mg tablet See Rx Instructions PO UD tab 06/06/19 07/16/19 History warfarin 5 mg tablet See Rx Instructions PO UD tab 06/06/19 07/16/19 History hydrochlorothiazide 25 mg tablet 25 mg PO DAILY #90 tab 07/03/19 07/16/19 Rx oxycodone ER 20 mg tablet,crush 20 mg PO Q12H #60 tab 07/10/19 07/16/19 Rx resistant,extended release 12 hr oxycodone-acetaminophen 5 mg-325 2 tab PO TID PRN #90 tab 07/10/19 07/16/19 Rx mg tablet acetaminophen 500 mg capsule 500 mg PO QAM PRN cap 07/11/19 07/16/19 History alprazolam 0.25 mg tablet 0.25 mg PO QID #120 tab 07/11/19 07/16/19 Rx nitrofurantoin macrocrystal 50 mg 50 mg PO DAILY #90 cap 07/11/19 07/16/19 History capsule cefuroxime axetil 500 mg tablet 500 mg PO BID 5 Days #10 tab 07/14/19 07/16/19 Rx Past Med/Surg History Medical History Abdominal wall abscess (Chronic) Ankle joint pain (Chronic) Antiphospholipid antibody syndrome (Chronic) Depression with anxiety (Chronic) Herpes simplex type 1 infection (Chronic) History of long-term treatment with high-risk medication (Chronic) Hyperglycemia (Chronic) Leg pain (Chronic) workers 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 adjuster (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) use of systemic steroids (Chronic) Lower limb ulcer, ankle (Chronic) MRSA infection (Chronic) Multiple drug allergies (Chronic) Nocturia (Chronic) Osteoarthritis (Chronic) Osteopenia (Chronic) Pain of foot (Chronic) Peripheral neuropathy (Chronic) Peripheral vascular disease (Chronic) Pigmented skin lesion (Chronic) Positive DAYANARA (antinuclear antibody) (Chronic) Postmenopausal atrophic vaginitis (Chronic) Stress incontinence in female (Chronic) Urinary frequency (Chronic) Urinary incontinence (Chronic) Urinary urgency (Chronic) Vitamin D deficiency (Chronic) HTN (hypertension) PAD (peripheral artery disease) (Chronic) Rheumatoid arthritis (Chronic) Chronic myofascial pain (Chronic) GERD (gastroesophageal reflux disease) (Chronic) Hypothyroidism (Chronic) Anxiety (Chronic) Arthritis (Chronic 04/08/13) RHEUMATOID Lumbar pain (Acute) Heart murmur (Acute) History of Mohs micrographic surgery for skin cancer (Acute) History of dislocation of shoulder (Acute) Abdominal hernia History of DVT (deep vein thrombosis) Lupus Surgical History History of cataract surgery (Acute) History of endarterectomy (Acute) History of hernia repair (Acute) History of ligation of vein (Acute) History of surgical procedure on eye proper using laser (Acute) History of ventral hernia repair (Acute) History of appendectomy Family History Mother Hypertension Social History Preferred Language: Yakut Communication Ability: Effective Visual Impairment: No Limitations Hearing Ability: Normal 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 Required: No Beliefs That Will Affect Care: None marital status: Current Living Situation: Spouse Other Information That Helps Us Care for You: No Feels Safe at Home: Yes Safety Concerns: Feels Safe At This Time Smoking Status: Never smoker Second Hand Exposure: No ; Hx Alcohol Use: No Hx Substance Use: No Review of Systems Review of Systems: Constitutional: No fever, + sweats and chills x 3 days Eyes: No diplopia, no worsening or blurred vision ENT: normal hearing, no trouble swallowing Respiratory: No cough, sputum, dyspnea at rest or on exertion Cardiovascular: No chest pain, tightness or palpitations Abdomen: No pain, + nausea, no vomiting, diarrhea or constipation : +Dysuria and increased frequency, no hematuria Musculoskeletal: No joint pain, calf pain, swelling Neurologic: + generalized weakness, no numbness/tingling, + balance problems and uses a walker at all times with ambulation Psychiatric: + anxiety and depression on medication Skin: No rash or itch Physical Exam Physical Exam: General: awake, alert, no apparent distress Head: Normocephalic, atraumatic ENT: PERRL, EOMI, no pharyngeal exudate, mucous membranes slightly dry Chest: Clear to auscultation, on room air, no adventitious breath sounds Cardiac: Regular rate and rhythm, + KAREN grade III/, no JVD, normal peripheral pulses, good capillary refill Abdominal: NABS x 4 quadrants, soft, nondistended, nontender to palpation, no rebound, guarding or tenderness Extremities: Normal inspection, no peripheral edema or erythema, calfs nontender to palpation Skin: Multiple areas of ecchymosis over extremities from anticoagulation Psych: Normal mood and affect, pleasant Neuro: AAO x 3, no gross motor deficits, speech is clear, no peripheral sensory deficits Results & Data Vital Signs (Past 12 Hours) Vital Signs Temp Pulse Pulse Resp BP BP Pulse Ox 07/16/19 10:55 80 18 107/60 98 07/16/19 10:10 85 20 118/60 96 07/16/19 10:08 99 07/16/19 09:15 36.5 C 89 20 126/72 95 Diagnostic Findings XR chest 1V portable CLINICAL HISTORY: Sepsis COMPARISON STUDY: 04/30/2015 FINDINGS: The bones soft tissues and hemidiaphragms are normal. The cardiomediastinal silhouette is normal. The lungs are clear. The pulmonary vasculature is normal. Slight chronic blunting lateral costophrenic angles bilaterally IMPRESSION: No acute process CT abd pelvis wo con CT DOSE: 888.22 mGy.cm HISTORY: Flank pain left flank pain TECHNIQUE: Multiaxial CT images of the abdomen and pelvis were performed without contrast. A dose lowering technique was utilized adhering to the principles of ALARA. COMPARISON STUDY: 06/27/2018 FINDINGS: The previously described collection has shown near complete resolution. Chronic pleural and parenchymal changes at the lung bases are present. Configuration of the liver is unremarkable. Gallbladder is negative for distention. Mild fatty replacement of the pancreas. Kidneys are considered negative for calcification or hydronephrosis. There is an unchanged lower pole left renal cyst. Nonobstructive bowel pattern. No evidence for free fluid within the abdominal or pelvic region. IMPRESSION: No acute process. Chronic change. Previous described collection has shown essentially complete resolution. Code Status & VTE Plan Code Status Full code- discussed with the patient and her at bedside Supervising Physician Co-Signing Physician Notes I saw and examined a patient with Chelita Oh and agree with her assessment an plan. PG Care Time/CCT Total # of Minutes Spent Total Time Spent with Patient: Total time spent is greater than 50% in coordination of care (as documented) at patient's floor/unit and/or counseling patient:
[2019-07-16] MEDS ORDERED: NON-FORMULARY MEDICATION (Acetaminophen 500 MG) PO PRN (14:22)
[2019-07-16] MEDS ORDERED: DICLOFENAC SOD 1% GEL 100 GM TUBE EXT PRN (14:22)
[2019-07-16] MEDS ORDERED: ACETAMINOPHEN 325 MG TAB PO PRN (14:22)
[2019-07-16] MEDS ORDERED: SILVER SULFADIAZINE 1% CR 50 GM JAR TOP PRN (14:22)
[2019-07-16] MEDS ORDERED: ACYCLOVIR 5% OINT 15 GM TUBE EXT PRN (14:22)
[2019-07-16] MEDS ORDERED: POTASSIUM CHLORIDE 20 MEQ TABCR PO STA (14:22)
[2019-07-16] MEDS ORDERED: ONDANSETRON INJ 2 MG/ML 2 ML VIAL IV PRN (14:22)
[2019-07-16] MEDS ORDERED: WARFARIN SOD 5 MG TAB PO SCH (16:00)
[2019-07-16] MEDS ORDERED: WARFARIN SOD 1 MG TAB PO SCH (16:00)
[2019-07-16] MEDS: SODIUM CHLORIDE 0.9% 1000ML 1,000 ML IV SCH (16:46)
[2019-07-16] MEDS: ALPRAZolam 0.25 MG TABLET PO SCH ×3 (16:55→20:24)
[2019-07-16] MEDS: OXYCODONE/ACETAMINOPHEN 5mg/325mg TAB PO PRN (16:55)
[2019-07-16] MEDS: OXYCODONE HCL 20 MG TABCR (OXYCONTIN) PO SCH (20:22)
[2019-07-16] MEDS: HYDROXYCHLOROQUINE SULFATE 200 MG TAB PO SCH (20:23)
[2019-07-16] MEDS: PRAZOSIN HCL 1 MG CAP PO SCH (20:23)
[2019-07-16] MEDS: DULOXETINE HCL 20 MG CAP PO SCH (20:23)
[2019-07-16] MEDS: CeleBREX 200 MG CAP PO SCH (20:23)
[2019-07-16 20:28] LABS: Albumin Level 3.4 gm/dl (3.4-5.0); BUN Creatinine Ratio 14.9 (10-20); Calcium 8.5 mg/dl (8.5-10.1); Creatinine Clr Calc Pharmacy 58.7 ml/min; Est GFR (African American) 66.8; Est GFR (Non-African American) 57.6; Potassium 3.4 mmol/L (3.5-5.1)
[2019-07-16 20:31] LABS: Albumin Globulin Ratio 1.1 (0.9-2); Bilirubin,Total 0.3 mg/dl (0.2-1); Globulin 3.2 gm/dl (2.5-4.0); Total Protein 6.6 gm/dl (6.4-8.2)
[2019-07-17] MEDS: SODIUM CHLORIDE 0.9% 1000ML 1,000 ML IV SCH (02:33)
[2019-07-17 05:16] LABS: Hematocrit (blood only) 34.4 % (37-47); Hemoglobin 11.6 g/dL (12.0-16.0); Mean Corpuscular Hgb Conc 33.7 g/dL (32-36); Mean Corpuscular Volume 83.1 fL (80-100); Mean Platelet Volume 10.5 fL (7.4-10.4); Platelet Count 247 K/uL (130-400); RDW Coefficient of Variation 14.1 % (11.5-14.5); RDW Standard Deviation 42.5 fL (36.4-46.3); Red Blood Count 4.14 M/uL (4.2-5.4); White Blood Count 8.44 K/uL (4.8-10.8)
[2019-07-17 05:35] LABS: Prothrombin Time 36.3 Seconds (9.0-12.0)
[2019-07-17 05:42] LABS: INR 3.9 (0.9-1.1)
[2019-07-17 05:53] LABS: Albumin Level 2.7 gm/dl (3.4-5.0); BUN Creatinine Ratio 15.6 (10-20); Bilirubin,Total 0.3 mg/dl (0.2-1); Calcium 8.2 mg/dl (8.5-10.1); Creatinine Clr Calc Pharmacy 63.3 ml/min; Est GFR (African American) 73.1; Globulin 2.8 gm/dl (2.5-4.0); Potassium 3.4 mmol/L (3.5-5.1); Total Protein 5.5 gm/dl (6.4-8.2)
[2019-07-17] MEDS: LEVOTHYROXINE SODIUM 125 MCG TABLET PO SCH (06:18)
[2019-07-17] MEDS: ALPRAZolam 0.25 MG TABLET PO SCH ×4 (08:21→21:16)
[2019-07-17] MEDS: ONDANSETRON 4 MG TAB PO PRN ×2 (08:21→17:06)
[2019-07-17] MEDS: CeleBREX 200 MG CAP PO SCH ×2 (08:21→21:16)
[2019-07-17] MEDS: PANTOprazole 40 MG TAB PO SCH (08:22)
[2019-07-17] MEDS: CALCIUM 600MG + VIT D 400 IU TAB PO SCH (08:22)
[2019-07-17] MEDS: predniSONE 1 MG TAB PO SCH (08:22)
[2019-07-17] MEDS: OXYCODONE HCL 20 MG TABCR (OXYCONTIN) PO SCH ×2 (08:22→21:14)
[2019-07-17] MEDS: HYDROXYCHLOROQUINE SULFATE 200 MG TAB PO SCH ×2 (08:23→21:16)
[2019-07-17] MEDS: PRAZOSIN HCL 1 MG CAP PO SCH ×2 (08:23→21:16)
[2019-07-17] MEDS: LIDOCAINE 2% JELLY 5 ML TUBE EXT SCH (08:24)
[2019-07-17] MEDS: KETOCONAZOLE 2% CR 15 GM TUBE EXT SCH (08:30)
[2019-07-17] MEDS: OXYCODONE/ACETAMINOPHEN 5mg/325mg TAB PO PRN ×3 (08:35→16:27)
[2019-07-17] MEDS ORDERED: POTASSIUM CHLORIDE 20 MEQ TABCR PO STA (09:15)
[2019-07-17] MEDS ORDERED: cefTRIAXone SODIUM 2,000 MG in DEXTROSE 5% 50 ML IV SCH (11:00)
[2019-07-17] MEDS ORDERED: POLYETHYLENE (MIRALAX) 17 GM PACK PO STA (11:11)
--- NOTE | 2019-07-17 14:11 | Hospitalist Progress Note ---
Date of Service July 17, 2019 Assessment & Plan (1) UTI due to Klebsiella species: Continue admit to [facility] Continue treating Klebsiella pneumonia UTI from 07/14/19 outpt UCx with IV Rocephin. Patient failed outpatient treatment with nitrofurantoin because urine culture came back resistant to nitrofurantoin. WBC elevated at 13.22, follow BCx x 2, afebrile but has been taking Percocet for pain, may have masked fever, +chills and sweats on ROS CT abd/pelvis negative for acute findings Good p.o. intake plan to stop IV fluids. Supportive therapy PT/OT consults (2) Antiphospholipid antibody syndrome: Supratherapeutic INR of 3.9. We will hold Coumadin tonight and recheck INR in the morning. INR supposed to be between 2 and 3 (3) MCC (current) use of anticoagulants: - As above (4) Chronic diastolic CHF (congestive heart failure): Holding HCTZ with dehydration, poor oral intake x 3 days, and hyponatremia Last echo from 04/30/15 showing mild left ventricular hypertrophy, mild aortic stenosis and aortic valve sclerosis, trace MR, mild to moderate TR, and grade 1 diastolic dysfunction Loud murmur on exam, consider repeat ECHO for staging but not necessary at this time (5) Aortic stenosis: Loud crescendo murmur on exam, likely worsened since last ECHO completed in April 2015. (6) PAD (peripheral artery disease): - Anticoagulation as above (7) Hyponatremia: Improving sodium 130 now (8) Hypokalemia: Improving 3.4 now replenished potassium p.o. 40 milliequivalents Monitor potassium and replenish (9) Hypothyroidism: - Cont levothyroxine 125 mcg daily (10) Rheumatoid arthritis: Continue prednisone 7 mg daily, hydroxycholoroquine 200 mg BID, pain medication as per BIZTALK CONSULTANT list. (11) Chronic myofascial pain: - Continue pain control with duloxetine, celecoxib, percocet and oxycodone (12) Herpes simplex type 1 infection: - Continue rabeprazole 20 gm daily and acyclovir topically UD. No current outbreaks or flares. (13) GERD (gastroesophageal reflux disease): Stable, not on PPI or H2 trent (14) Osteopenia: (15) Vitamin D deficiency: Cont calcium and Vit D supplementation (16) Depression with anxiety: Continue duloxetine 20 mg QAM, alprazolam 0.2 mg QID and prazosin 2 mg BID (17) DVT prophylaxis: - teds, continue coumadin CODE: FULL Dispo: From home, lives with , likely to remain in the hospital for 1-2 days for IV antibiotics, IV fluids, and further supportive care. Subjective She is seen and examined at the bedside. Slowly improving. Patient reports that she did not have bowel movement for several days. She denies fever, chills, chest pain, shortness of breath, frequency, urgency. Improving p.o. intake. Patient is afebrile Review of Systems Review of Systems: All systems reviewed & are unremarkable except as noted in HPI & below Physical Exam Constitutional: WD/WN, vitals as above well developed Eyes: PERRL, conjunctivae normal, anicteric sclerae ENMT: external ear and nose normal, oropharynx normal Neck: trachea midline, no thyromegaly Respiratory: normal respiratory effort, lungs clear to auscultation Cardiovascular: RRR, no murmur, no edema Gastrointestinal (Abdomen): normal bowel sounds, soft, nontender, no hepatosplenomegaly Generalized weakness and dizziness Musculoskeletal: Generalized weakness and Skin: no rashes, warm and dry Neurologic: patellar DTR's 2+ bilat, sensation intact Psychiatric: A+Ox3, euthymic affect Genitourinary: Mild suprapubic tenderness. Denies costovertebral angle tenderness. Lymphatic: no cervical or axillary lymphadenopathy Results & Data Vital Signs (Past 12 Hours) Vital Signs Temp Pulse Resp BP Pulse Ox 07/17/19 07:17 36.5 C 79 20 168/74 H 95 PG Care Time/CCT Total # of Minutes Spent Total Time Spent with Patient: Total time spent is greater than 50% in coordination of care (as documented) at patient's floor/unit and/or counseling patient:
[2019-07-17 16:52] LABS: Prothrombin Time 34.2 Seconds (9.0-12.0)
[2019-07-17 17:07] LABS: INR 3.7 (0.9-1.1)
[2019-07-17] MEDS ORDERED: HydrALAZINE 10 MG TAB PO PRN (21:00)
[2019-07-17] MEDS: DULOXETINE HCL 20 MG CAP PO SCH (21:16)
[2019-07-18] MEDS: LEVOTHYROXINE SODIUM 125 MCG TABLET PO SCH (05:37)
[2019-07-18 06:11] LABS: Hematocrit (blood only) 34.1 % (37-47); Hemoglobin 11.3 g/dL (12.0-16.0); Mean Corpuscular Hemoglobin 27.8 pg (25-34); Mean Corpuscular Hgb Conc 33.1 g/dL (32-36); Mean Corpuscular Volume 83.8 fL (80-100); Mean Platelet Volume 10.1 fL (7.4-10.4); Platelet Count 250 K/uL (130-400); RDW Coefficient of Variation 14.2 % (11.5-14.5); RDW Standard Deviation 43.7 fL (36.4-46.3); Red Blood Count 4.07 M/uL (4.2-5.4)
[2019-07-18 06:17] LABS: INR 2.9 (0.9-1.1); Prothrombin Time 27.9 Seconds (9.0-12.0)
[2019-07-18 06:43] LABS: Albumin Level 2.8 gm/dl (3.4-5.0); BUN Creatinine Ratio 18.8 (10-20); Calcium 8.8 mg/dl (8.5-10.1); Creatinine Clr Calc Pharmacy 66.9 ml/min; Est GFR (African American) 78.2; Est GFR (Non-African American) 67.5; Potassium 3.8 mmol/L (3.5-5.1)
[2019-07-18 06:46] LABS: Bilirubin,Total 0.3 mg/dl (0.2-1); Globulin 2.9 gm/dl (2.5-4.0); Total Protein 5.7 gm/dl (6.4-8.2)
[2019-07-18 07:09] VITALS: PULSE 99; TEMP 97.3; O2SAT 96
[2019-07-18] MEDS: OXYCODONE HCL 20 MG TABCR (OXYCONTIN) PO SCH (09:00)
[2019-07-18] MEDS: ALPRAZolam 0.25 MG TABLET PO SCH (09:00)
[2019-07-18] MEDS ORDERED: POTASSIUM CHLORIDE 20 MEQ TABCR PO SCH (09:00)
[2019-07-18] MEDS: PANTOprazole 40 MG TAB PO SCH (09:00)
[2019-07-18] MEDS: predniSONE 1 MG TAB PO SCH (09:00)
[2019-07-18] MEDS: PRAZOSIN HCL 1 MG CAP PO SCH (09:01)
[2019-07-18] MEDS: HYDROXYCHLOROQUINE SULFATE 200 MG TAB PO SCH (09:01)
[2019-07-18] MEDS: CALCIUM 600MG + VIT D 400 IU TAB PO SCH (09:01)
[2019-07-18] MEDS: CeleBREX 200 MG CAP PO SCH (09:01)
[2019-07-18] MEDS: KETOCONAZOLE 2% CR 15 GM TUBE EXT SCH (09:01)
[2019-07-18] MEDS: LIDOCAINE 2% JELLY 5 ML TUBE EXT SCH (09:02)
--- NOTE | 2019-07-18 09:40 | Hospitalist Progress Note ---
Date of Service July 18, 2019 Assessment & Plan (1) UTI due to Klebsiella species: Patient is going to go home. Since switched to p.o. Keflex 500 mg 4 times daily for 5 more days for Klebsiella pneumonia UTI. Sodium 133 today. Patient recommended to follow-up with her primary PCP to repe at [facility] within [address] abd/pelvis negative for acute findings Good p.o. intake (2) Antiphospholipid antibody syndrome: INR of 2.9. Patient was referred to outpatient warfarin clinic today. She has appointment at 10 PM to check her INR and and have follow-up on her Coumadin. 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 Patient should follow-up with her primary PCP and cardiology on the outpatient basis. (5) Aortic stenosis: Loud crescendo murmur on exam, patient stated that she is going to follow- up with her primary care physician and cardiology and do echocardiogram as an outpatient. (6) PAD (peripheral artery disease): - Anticoagulation as above (7) Hyponatremia: Improving sodium 133 now, recheck with PCP BNP in 3 to 7 days (8) Hypokalemia: Resolved (9) Hypothyroidism: - Cont levothyroxine 125 mcg daily (10) Rheumatoid arthritis: Continue prednisone 7 mg daily, hydroxycholoroquine 200 mg BID, pain medi cation as per ETL ARCHITECT list. (11) Chronic myofascial pain: - Continue pain control with duloxetine, celecoxib, percocet and oxycodone (12) Herpes simplex type 1 infection: - Continue rabeprazole 20 gm daily and acyclovir topically UD. No current outbreaks or flares. (13) GERD (gastroesophageal reflux disease): Stable, not on PPI or H2 trent (14) Osteopenia: (15) Vitamin D deficiency: Cont calcium and Vit D supplementation (16) Depression with anxiety: Continue duloxetine 20 mg QAM, alprazolam 0.2 mg QID and prazosin 2 mg BID (17) DVT prophylaxis: - teds, continue coumadin CODE: FULL Dispo: From home, lives with , likely to remain in the hospital for 1-2 days for IV antibiotics, IV fluids, and further supportive care. Subjective She is seen and examined at the bedside.patient eager to go home. Patient states she had bowel movement this morning. She prefers echocardiogram to be done as an outpatient as she says she is going to follow-up closely with her PCP. She denies fever, chills, chest pain, shortness of breath, frequency, urgency. Improved p.o. intake. Patient is afebrile. Very pleasant in person and cooperative. Review of Systems Review of Systems: All systems reviewed & are unremarkable except as noted in HPI & below Physical Exam Constitutional: WD/WN, vitals as above well developed Eyes: PERRL, conjunctivae normal, anicteric sclerae ENMT: external ear and nose normal, oropharynx normal Neck: trachea midline, no thyromegaly Respiratory: normal respiratory effort, lungs clear to auscultation Cardiovascular: RRR, no murmur, no edema Gastrointestinal (Abdomen): normal bowel sounds, soft, nontender, no hepatosplenomegaly Skin: no rashes, warm and dry Neurologic: patellar DTR's 2+ bilat, sensation intact Psychiatric: A+Ox3, euthymic affect Lymphatic: no cervical or axillary lymphadenopathy Results & Data Vital Signs (Past 12 Hours) Vital Signs Temp Pulse Resp BP Pulse Ox 07/18/19 07:08 36.3 C L 99 H 18 159/80 H 96 07/17/19 23:12 36.9 C 85 16 148/81 H 94 PG Care Time/CCT Total # of Minutes Spent Total Time Spent with Patient: Total time spent is greater than 50% in coordination of care (as documented) at patient's floor/unit and/or counseling patient:
[2019-07-18 09:55] VITALS: BP 168/74
--- NOTE | 2019-07-18 18:58 | Discharge Summary ---
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 She notes not feeling well for about 3 days now with increased urinary frequency and dysuria, denies hematuria. She reports poor appetite as well as nausea when she tries to eat something. She reports feeling weak and tired. Denies issues with abdominal pain, constipation or diarrhea. She had a positive urine culture for Klebsiella pneumonia on 07/14/19, and was placed on nitrofurantoin prior to culture results, now that cultures are complete it shows this as resistant to that antibiotic, however is sensitive to others. The patient was started on rocephin IV here in the ER. She did take all her morning medications today. Her is present at bedside. WBC slightly elevated at 13.22, NA = 125, K+=3.2 Principal Diagnosis none Discharge Exam Constitutional WD/WN, vitals as above well developed Eyes PERRL, conjunctivae normal, anicteric sclerae ENMT external ear and nose normal, oropharynx normal Neck trachea midline, no thyromegaly Respiratory normal respiratory effort, lungs clear to auscultation Cardiovascular Heart Sounds: normal S1, normal S2 and + murmur Vessels: normal peripheral pulses and dorsalis pedis pulses present Gastrointestinal (Abdomen) normal bowel sounds, soft, nontender, no hepatosplenomegaly Musculoskeletal no cyanosis or clubbing, extremities motor strength 5/5 Skin no rashes, warm and dry Neurologic patellar DTR's 2+ bilat, sensation intact Psychiatric A+Ox3, euthymic affect Lymphatic no cervical or axillary lymphadenopathy Discharge Data Allergies Allergy/AdvReac Type Severity Reaction Status Date / Time bacitracin Allergy Intermediate hives Verified 07/10/19 15:08 Bactrim Allergy Intermediate hives Verified 05/11/18 09:19 latex Allergy Intermediate SWELLING Verified 07/10/19 15:08 sulfamethoxazole Allergy Intermediate hives Verified 07/10/19 15:08 trimethoprim Allergy Intermediate hives Verified 07/10/19 15:08 Aquaphor OINT Allergy Uncoded 07/10/19 15:08 Calmoseptine OINT Allergy Uncoded 07/10/19 15:08 Tetracyclines Allergy Uncoded 07/10/19 15:08 Consultations 07/16/19 14:22 Consult Case Management - Discharge Planning Routine Ordered Studies 07/16/19 09:42 CT abd pelvis wo con Stat Hospital Course (1) UTI due to Klebsiella species: Patient is going to go home. Since switched to p.o. Keflex 500 mg 4 times daily for 5 more days for Klebsiella pneumonia UTI. Sodium 133 today. Patient recommended to follow-up with her primary PCP to re peat BMP within [address] abd/pelvis negative for acute findings Good p.o. intake (2) Antiphospholipid antibody syndrome: INR of 2.9. Patient was referred to outpatient warfarin clinic today. She has appointment at 10 PM to check her INR and and have follow-up on her Coumadin. (3) FPC (current) use of anticoagulants: - As above (4) Chronic diastolic CHF (congestive heart failure): Stable now. Patient should follow-up with her primary PCP and cardiology on the outpatient basis. (5) Aortic stenosis: Loud crescendo murmur on exam, patient stated that she is going to follow- up with her primary care physician and cardiology and do echocardiogram as an outpatient. (6) PAD (peripheral artery disease): - Anticoagulation as above (7) Hyponatremia: Improving sodium 133 now, recheck with PCP BNP in 3 to 7 days (8) Hypokalemia: Resolved (9) Hypothyroidism: - Cont levothyroxine 125 mcg daily (10) Rheumatoid arthritis: Continue prednisone 7 mg daily, hydroxycholoroquine 200 mg BID, pain me dication as per [employer] list. (11) Chronic myofascial pain: - Continue pain control with duloxetine, celecoxib, percocet and oxycodone (12) Herpes simplex type 1 infection: - Continue rabeprazole 20 gm daily and acyclovir topically UD. No current outbreaks or flares. (13) GERD (gastroesophageal reflux disease): Stable, not on PPI or H2 trent (14) Osteopenia: (15) Vitamin D deficiency: Cont calcium and Vit D supplementation (16) Depression with anxiety: Continue duloxetine 20 mg QAM, alprazolam 0.2 mg QID and prazosin 2 mg BID (17) DVT prophylaxis: - teds, continue coumadin CODE: FULL Dispo: From home, lives with , likely to remain in the hospital for 1-2 days for IV antibiotics, IV fluids, and further supportive care. Total Time Total Time Spent Total Time Spent (In Minutes): over 30 min Discharge Plan Discharge Items Patient Disposition: Home - Self-Care Reason For Visit: UTI,N/V,FAILURE OF OUTPT ABX Discharge Diagnosis: Complicated urinary tract infection Condition on Discharge: Good Activity: Resume your previous activity Lifting: Gradually increase as tolerated Non-emergency contact: Primary Care Provider Call non-emergency contact if: you have any medication questions, your symptoms worsen, your pain is not controlled, your pain is worsening, your pain is unusual for you, your pain is concerning for you, you have a fever and your rectal temperature is above 100.4 Follow-up/Referrals: [facility] [Provider Group] - 07/19/19 8:30 am (Please, follow up at [facility] TOMORROW, WednesdayJuly 19, at 8:30 am. *If you need to change this appointment, call the central scheduling department at [phone].) Rip Vila MD [Primary Care Provider] - 07/24/19 12:30 pm (Please, follow up at Dr. Vila's office with his associate, Kathia Jose PA-C, on WednesdayJuly 24 at 12:30 pm. *If you need to change this appointment, call the office at [phone].) Diet: Heart Healthy Fluids: 1200ml (5 cups) Addtl Attending Provider Instructions: Please follow up with Warfarin clinic today. Make sure they check your INR. Restart your Warfarin tomorrow. Follow up with PCP in 3 days. Recheck CBC and CMP labs when you see your doctor. We will start you on Keflex 500 mg Q6hr for 5 days. Pending Studies at Discharge: No Stand-Alone Forms: My [facility], Smoking Cessation Medications and DC Order Prescriptions: New cephalexin [Keflex] 500 mg capsule 500 mg PO Q6H Qty: 20 RF: 0 Continued warfarin 1 mg tablet See Patient Comments PO UD RF: 0 warfarin 5 mg tablet See Patient Comments PO UD RF: 0 duloxetine 20 mg capsule,delayed release(DR/EC) 20 mg PO QPM RF: 0 acetaminophen 500 mg capsule 500 mg PO QAM PRN (Reason: pain) RF: 0 prazosin 2 mg Capsule 2 mg PO BID Qty: 0 RF: 0 Calcium 600 + D(3) 600 mg calcium- 200 unit Capsule 600 mg PO DAILY Qty: 0 RF: 0 rabeprazole [AcipHex] 20 mg Tablet,Delayed Release (Dr/Ec) 20 mg PO DAILY Qty: 0 RF: 0 levothyroxine [Synthroid] 125 mcg Tablet 125 mcg PO DAILY Qty: 0 RF: 0 diclofenac sodium [Voltaren] 1 % Gel 1 applic Topical BID PRN (Reason: Pain) Qty: 0 RF: 0 prednisone 1 mg tablet 7 mg PO DAILY Qty: 0 RF: 0 hydroxychloroquine 200 mg tablet 200 mg PO BID Qty: 180 RF: 1 hydrochlorothiazide 25 mg tablet 25 mg PO DAILY Qty: 90 RF: 1 alprazolam 0.25 mg tablet 0.25 mg PO QID Qty: 120 RF: 0 acyclovir 5 % ointment 1 applic topical UD Qty: 1 RF: 0 lidocaine HCl 2 % jelly in applicator 1 applic topical DAILY Qty: 1 RF: 0 silver sulfadiazine 1 % cream 1 appln topical BID PRN (Reason: wound healing) Qty: 1 RF: 0 ketoconazole 2 % cream 1 applic topical DAILY Qty: 1 RF: 0 oxycodone-acetaminophen [Percocet] 5-325 mg tablet 2 tab PO TID PRN (Reason: Pain) Qty: 90 RF: 0 oxycodone [OxyContin] 20 mg tablet,oral only,ext.rel.12 hr 20 mg PO Q12H Qty: 60 RF: 0 ondansetron HCl [Zofran] 4 mg Tablet 4 mg PO BID PRN (Reason: Nausea) RF: 0 celecoxib 200 mg capsule 200 mg PO BID RF: 0 Discontinued cefuroxime axetil 500 mg tablet 500 mg PO BID 5 Days Qty: 10 RF: 0 nitrofurantoin macrocrystal 50 mg capsule 50 mg PO DAILY Qty: 90 RF: 0 Discharge Orders: Discharge Order (Routine); Ordered 07/18/19 Ordered By: Camilo Rey/Other Patient Handouts: Cephalexin Monohydrate Oral tablet Admission Data Admit Date/Time: 07/16/19 12:34 Attending Provider: Camilo Terry Admit Provider: Camilo Terry Primary Care Provider: Rip Vila Other Interventions: Discharge Summary Assessment (RN) Last Done: 07/18/19 09:54 DC Date/Time DO NOT enter until pt leaves facility: 07/18/19 10:19
== END 2019-07-18 10:19 | disposition home or self-care (01) | DRG 690 ==
LOC: ED 09:12 → 3N 12:34

== ENCOUNTER 2023-12-28 15:55 | Inpatient (IN) ==
--- NOTE | 2023-12-28 16:17 | ED Triage Note ---
Date of Service December 28, 2023 Provider in Triage Author: Mary Freitas History of Present Illness This patient was briefly evaluated while in triage. An abbreviated physical exam was performed. This patient is a 78-year-old Female who presents to the ED for evaluation of urinary symptoms. She states that she has had UTI symptoms for a couple days to weeks. The patient had outpatient testing and her urine culture came back resistant to all oral antibiotics due to her allergies, but they thought it might be contamination b/c she was on prophylactic Macrobid. However, symptoms are not improving. She has been having increased urinary symptoms and confusion. Physical Exam GENERAL: Non-toxic and in no acute distress. HEENT: Pupils equal. No obvious scleral icterus. HEART: Regular rate and rhythm. LUNGS: Clear to auscultation. No accessory muscle use. ABDOMEN: Soft, non-tender to palpation. Initial orders for labs and / or imaging were placed and patient was placed in the waiting area until a bed is available. Please see further documentation for the full ED course. MDM / Impression Impression Impression: Complicated urinary tract infection, Leukocytosis
[2023-12-28 17:32] LABS: Hematocrit (blood only) 29.1 % (37.0-47.0); Mean Corpuscular Hemoglobin 24.7 pg (25.0-34.0); Mean Corpuscular Hgb Conc 30.9 g/dL (32.0-36.0); Mean Corpuscular Volume 79.9 fL (80.0-100.0); Mean Platelet Volume 11.5 fL (9.4-12.4); Platelet Count 305 K/uL (130-400); RDW Coefficient of Variation 17.2 % (11.5-14.5); RDW Standard Deviation 50.4 fL (36.4-46.3); Red Blood Count 3.64 M/uL (4.20-5.40); White Blood Count 15.85 K/ul (4.8-10.8)
[2023-12-28] MEDS: SODIUM CHLORIDE 0.9% 500 ML IV STA (17:33)
--- NOTE | 2023-12-28 17:44 | XRay Report ---
XR chest 1V portable CLINICAL HISTORY: Chest pain, nonspecific TECHNIQUE: Single frontal radiograph of the chest was obtained. Comparison: Comparison is made to chest radiograph 02/17/[address] chest 04/08/2013 FINDINGS: No lines and tubes are seen. Cardiomegaly is noted. The aortic arch is calcified. The lungs are clear . Blunting of the left costophrenic angle is seen. IMPRESSION: No acute chest disease. Blunting of left costophrenic angle is compatible with prominent extrapleural fat seen on prior CT. ACT 112: Negative or not required by law. Electronically signed by: Satya Myers M.D. 12/28/2023 5:42 PM
[2023-12-28 17:50] LABS: Alanine Aminotransferase 13 U/L (7-52); Albumin Globulin Ratio 1.2 (0.9-2); Albumin Level 3.7 gm/dl (3.4-5.0); Alkaline Phosphatase 64 U/L (34-104); Anion Gap 7 (3-11); Aspartate Aminotransferase 18 U/L (13-39); BUN Creatinine Ratio 42.7 (10-20); Bilirubin,Total 0.4 mg/dl (0.2-1.0); Blood Urea Nitrogen 35 mg/dl (6-23); Calcium 9.4 mg/dl (8.6-10.3); Carbon Dioxide 27 mmol/L (21-32); Chloride 99 mmol/L (98-107); Est GFR (African American) 80.6 ml/min; Est GFR (Non-African American) 69.5 ml/min; Globulin 3.1 gm/dl (2.5-4.0); Glucose 107 mg/dl (70-99(Fasting)); Lipase 10 U/L (11-82); Magnesium 2.1 mg/dl (1.7-2.4); Sodium 133 mmol/L (136-145); Total Protein 6.8 gm/dl (6.0-8.3)
[2023-12-28 17:57] LABS: Basophils # (auto) 0.08 K/uL (0.00-0.20); Basophils % (auto) 0.5 %; Eosinophils # (auto) 0.08 K/uL (0.00-0.50); Eosinophils % (auto) 0.5 %; Hypochromasia Present; Immature Granulocytes # (auto) 0.14 K/uL (0.01-0.20); Immature Granulocytes % (auto) 0.9 %; Lymphocytes # (auto) 0.41 K/uL (1.20-3.40); Lymphocytes % (auto) 2.6 %; Monocytes # (auto) 0.76 K/uL (0.11-0.59); Monocytes % (auto) 4.8 %; Neutrophils # (auto) 14.38 K/uL (1.40-6.50); Neutrophils % (auto) 90.7 %
[2023-12-28 17:58] LABS: INR 3.7 (0.9-1.1); Partial Thromboplastin Ratio 1.8; Partial Thromboplastin Time 51 Seconds (21-31)
--- NOTE | 2023-12-28 18:21 | Emergency Department Note ---
Impression & Plan Complicated urinary tract infection, Leukocytosis ED Provider Note HISTORY OF PRESENT ILLNESS: Patient is a 78-year-old female presenting with dysuria. Patient has a complicated history of complicated UTIs and frequent UTIs. She has been on prophylactic Macrobid for the last few weeks. She reports that in the last week she has been having worsening of her dysuria. States that she is urinating frequently and is very painful. She reports a foul odor to her urine. Denies any lower abdominal pain. Daughter expressed the patient is having intermittent episodes of confusion. No fevers at home. Denies any abdominal pain, nausea or vomiting. No chest pain or shortness of breath. Patient does report some significant stressors recently, with her suddenly dying a few weeks ago. ROS: as above PHYSICAL EXAM: Constitutional: Patient appears in no acute distress. HENT: Head: Normocephalic and atraumatic. Eyes: EOMI, PERRL Mouth/Throat: Mucous membranes moist. Neck: Trachea midline. Neck supple. Cardiovascular: RRR, No murmurs, rubs or gallops. Intact distal pulses. Pulmonary/Chest: No respiratory distress. Breath sounds clear and equal bilaterally. No wheezes or rales. Abdominal: Abdomen soft, no tenderness, rebound or guarding. Musculoskeletal: No edema, tenderness or deformity noted. Skin: Warm and dry. No rash, erythema, pallor or cyanosis Psychiatric: Appropriate mood and affect for situation. Neurological: Alert and keenly responsive. CN II-XII grossly intact, moving all extremities equally and fully. MDM: - Vitals signs stable - History obtained via patient. History as above. - Chronic conditions affecting care: HTN; CVA; rheumatoid arthritis; hypothyroidism - Differential diagnoses include, but are not limited to: UTI; sepsis; colitis; diverticulitis - Order placed for continuous cardiac monitoring. At this time, monitor showed rate of 71 bpm with normal sinus rhythm, per my interpretation. - External medical records reviewed. Patient's urine culture dated 11/09/2023 was reviewed. Patient grew Klebsiella pneumoniae ESBL in her urine. Bacteria was only sensitive to Zosyn, meropenem and ertapenem. - EKG interpreted by myself showed normal sinus rhythm. Rate 79 bpm. QT 374. No acute ischemic changes - Laboratory workup interpreted by myself showed leukocytosis (WBC 15.85) with left shift; hyponatremia (Na 133); normal lactate; elevated troponin (29) - Blood cultures obtained - UA showed evidence of infection - Given patient's known previous cultures of ESBL, zosyn ordered. - Patient given 1L NS in ER. - Discussion was had with case about patient's case and need for admission - Hospitalist consulted for admission - [facility] for further evaluation and management. 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 MRSA infection Osteoarthritis Osteopenia Peripheral neuropathy Stress incontinence in female residential (current) use of anticoagulants PAD (peripheral artery disease) History of DVT (deep vein thrombosis) Surgical History S/P foot surgery, left History of embolectomy (1996) History of esophagogastroduodenoscopy (EGD) Hx of tonsillectomy H/O foot surgery History of surgical procedure on eye proper using laser History of ligation of vein History of hernia repair History of ventral hernia repair History of cataract surgery History of appendectomy Family History Mother Hypertension Daughter Systemic lupus erythematosus Antiphospholipid antibody syndrome Father No problems noted. Other Heart disease Nephrolithiasis No family history of adverse response to anesthesia Denies family history of Prostate cancer Hearing loss Cancer Stroke Social History (Updated 11/09/23 @ 11:45 by Jessica Leach LPN) Smoking Status: Never smoker Second Hand Exposure: Yes; Do You Dip or Chew Tobacco: No; Hx Alcohol Use: No Hx Substance Use: No Preferred Language: Irish Communication Ability: Effective Visual Impairment: No Limitations Hearing Ability: Normal [employer] Required: No Beliefs That Will Affect Care: None marital status: Current Living Situation: Spouse current occupational status: retired How many Children do You have: 2 Feels Safe at Home: Yes caffeine: Yes Dental Care, Regularly: Yes Seatbelt Use: sometimes Sunscreen Use: Yes Assistive Devices: Cane, Glasses and Walker Allergies Allergies Allergy/AdvReac Type Severity Reaction Status Date / Time amoxicillin [From Augmentin] Allergy Intermediate Hives Verified 12/28/23 18:43 bacitracin Allergy Intermediate hives Verified 12/28/23 18:43 clavulanic acid Allergy Intermediate Hives Verified 12/28/23 18:43 [From Augmentin] latex Allergy Intermediate localized Verified 12/28/23 18:43 swelling sulfamethoxazole Allergy Intermediate hives Verified 12/28/23 18:43 trimethoprim Allergy Intermediate hives Verified 12/28/23 18:43 menthol [From Calmoseptine] Allergy Mild redness/hiv Verified 12/28/23 18:43 es mineral oil [From Aquaphor] Allergy Mild redness/hiv Verified 12/28/23 18:43 es petrolatum,hydrophilic Allergy Mild redness/hiv Verified 12/28/23 18:43 [From Aquaphor] es zinc oxide Allergy Mild redness/hiv Verified 12/28/23 18:43 [From Calmoseptine] es tetracycline Allergy Unknown Unknown Verified 12/28/23 18:43 Home Meds Home Medications Medication Instructions Recorded Confirmed acetaminophen 500 mg capsule 500 mg PO DAILY PRN pain 07/11/19 12/28/23 calcium carbonate 600 mg-vitamin 2 cap PO BID #0 caps 10/16/19 12/28/23 D3 5 mcg (200 unit) capsule (Calcium 600 + D(3)) multivitamin 1 tab PO QAM 08/18/21 12/28/23 ascorbic acid (vitamin C) 1,000 mg 1 g PO QAM 12/01/21 12/28/23 tablet prednisone 5 mg tablet 10 mg PO QAM 01/16/22 12/28/23 vitamin B complex (B 1 tab PO QAM 12/08/22 12/28/23 Complex-Vitamin B12 tablet) nitrofurantoin macrocrystal 100 mg 100 mg PO QAM 02/10/23 12/28/23 capsule (Macrodantin) warfarin 2 mg tablet 2 mg PO HS 12/20/23 12/28/23 alprazolam 0.25 mg tablet (Xanax) 0.25 - 0.5 mg PO DAILY PRN anxiety 12/28/23 12/28/23 sertraline 100 mg tablet See Rx Instructions .Route .COMPLEX 12/28/23 12/28/23 sertraline 50 mg tablet See Rx Instructions .Route .COMPLEX 12/28/23 12/28/23 zolpidem 10 mg tablet (Ambien) 10 mg PO HS PRN Sleep 12/28/23 12/28/23 Previous Rx's Medication Instructions Recorded celecoxib 200 mg capsule 200 mg PO QAM #90 caps 02/05/23 rabeprazole 20 mg tablet,delayed 20 mg PO BID #180 tabs 04/12/23 release (AcipHex) hydroxychloroquine 200 mg tablet 200 mg PO QAM #180 tabs 06/24/23 levothyroxine 125 mcg tablet 125 mcg PO QAM #90 tabs 07/21/23 (Synthroid) olmesartan 5 mg tablet 5 mg PO QAM #90 tabs 08/27/23 acetic acid 2 % ear solution 5 drp otic (ear) TID 5 days #15 mL 09/10/23 ketoconazole 2 % topical cream 1 applic topical BID #60 grams 09/10/23 gabapentin 300 mg capsule 300 mg PO BID #180 caps 11/15/23 pravastatin 10 mg tablet 10 mg PO QDL #90 tabs 11/15/23 naloxone 4 mg/actuation nasal 4 mg intranasal Q3M PRN opioid 11/24/23 spray (Narcan) overdose #2 ea oxycodone 20 mg tablet,crush 20 mg PO QAM #30 tabs 11/24/23 resistant,extended release 12 hr (OxyContin) oxycodone-acetaminophen 5 mg-325 1 tab PO TID #90 tabs 11/24/23 mg tablet (Percocet) diclofenac sodium 1 % topical gel 4 g topical TID PRN Pain #100 grams 11/29/23 Results & Data (ED) Vital Signs Vital Signs - 24 hr 12/28/23 16:14 12/28/23 17:33 12/28/23 17:33 Temperature 36.8 C Temperature Source Oral Pulse Rate 84 Pulse Rate [Apical] 76 Pulse Rhythm [Apical] Regular Respiratory Rate 20 18 Respiratory Effort / Characteristics Non-Labored Non-Labored Spontaneous Respiratory Depth Normal Normal Respiratory Pattern Regular Blood Pressure 137/73 Blood Pressure [Right Arm] 105/52 L Blood Pressure Mean 94 Blood Pressure Mean [Right Arm] 69 Blood Pressure Position [Right Arm] Lying Pulse Oximetry 97 100 100 Oxygen Delivery Method Room Air Room Air Sepsis Recent Fever Within 48 Hours No Sepsis New/Unexplained Change in Mental Status No Sepsis Action Taken by Nursing No Action Required 12/28/23 18:00 Temperature Temperature Source Pulse Rate 71 Pulse Rate [Apical] Pulse Rhythm [Apical] Respiratory Rate Respiratory Effort / Characteristics Respiratory Depth Respiratory Pattern Blood Pressure Blood Pressure [Right Arm] Blood Pressure Mean Blood Pressure Mean [Right Arm] Blood Pressure Position [Right Arm] Pulse Oximetry Oxygen Delivery Method Sepsis Recent Fever Within 48 Hours Sepsis New/Unexplained Change in Mental Status Sepsis Action Taken by Nursing Laboratory Data 12/28/23 17:04 12/28/23 17:04 Lab Results 12/28/23 12/28/23 Range/Units 17:04 17:26 WBC 15.85 H (4.8-10.8) K/ul RBC 3.64 L (4.20-5.40) M/uL Hgb 9.0 L (12.0-16.0) g/dl Hct 29.1 L (37.0-47.0) % MCV 79.9 L (80.0-100.0) fL MCH 24.7 L (25.0-34.0) pg MCHC 30.9 L (32.0-36.0) g/dL RDW Std Deviation 50.4 H (36.4-46.3) fL RDW Coeff of Fernando 17.2 H (11.5-14.5) % Plt Count 305 (130-400) K/uL MPV 11.5 (9.4-12.4) fL Immature Gran % (Auto) 0.9 % Neut % (Auto) 90.7 % Lymph % (Auto) 2.6 % [place] % (Auto) 4.8 % Eos % (Auto) 0.5 % Baso % (Auto) 0.5 % Neut # (Auto) 14.38 H (1.40-6.50) K/uL Lymph # (Auto) 0.41 L (1.20-3.40) K/uL [place] # (Auto) 0.76 H (0.11-0.59) K/uL Eos # (Auto) 0.08 (0.00-0.50) K/uL Baso # (Auto) 0.08 (0.00-0.20) K/uL Immature Gran # (Auto) 0.14 (0.01-0.20) K/uL Hypochromasia Present PT 37.0 H (9.0-12.0) Seconds INR 3.7 H (0.9-1.1) APTT 51 H (21-31) Seconds PTT Ratio 1.8 Sodium 133 L (136-145) mmol/L Potassium 5.0 (3.5-5.1) mmol/L Chloride 99 (98-107) mmol/L Carbon Dioxide 27 (21-32) mmol/L Anion Gap 7 (3-11) BUN 35 H (6-23) mg/dl Creatinine 0.82 (0.6-1.2) mg/dl Est Cr Clr Drug Dosing Not Reportable Est GFR ( Amer) 80.6 ml/min Est GFR (Non-Af Amer) 69.5 ml/min BUN/Creatinine Ratio 42.7 H (10-20) Glucose 107 H (70-99(Fasting)) mg/dl Lactate 1.4 (0.4-2.0) mmol/L Calcium 9.4 (8.6-10.3) mg/dl Magnesium 2.1 (1.7-2.4) mg/dl Total Bilirubin 0.4 (0.2-1.0) mg/dl AST 18 (13-39) U/L ALT 13 (7-52) U/L Alkaline Phosphatase 64 (34-104) U/L Troponin I High Sens 29.0 H (0-14) pg/ml Total Protein 6.8 (6.0-8.3) gm/dl Albumin 3.7 (3.4-5.0) gm/dl Globulin 3.1 (2.5-4.0) gm/dl Albumin/Globulin Ratio 1.2 (0.9-2) Lipase 10 L (11-82) U/L Urine Color Dark Yellow Urine Appearance Turbid A (Clear) Urine pH 5.5 (4.5-7.5) Ur Specific [place] 1.021 (1.000-1.030) Urine Protein 1+ H (Negative) Urine Glucose (UA) Negative (Negative) Urine Ketones Trace H (Negative) Urine Blood 3+ H (Negative) Urine Nitrite Positive A (Negative) Urine Bilirubin Negative (Negative) Urine Urobilinogen Negative (Negative) Ur Leukocyte Esterase 3+ H (Negative) Urine WBC (Auto) >50 H (0-5) /hpf Urine RBC (Auto) 3-5 H (0-2) /hpf U Hyaline Cast (Auto) 0-2 (0-2) /lpf U Epithel Cells (Auto) 0-2 (0-2) /hpf Urine Bacteria (Auto) 4+ H (None Seen) Administered Medications Discontinued Medications Sodium Chloride (Nss) 500 mls @ 999 mls/hr IV .Q31M STA Stop: 12/28/23 16:47 Last Infusion: 12/28/23 18:53 Dose: Infused Documented By: Admin: 12/28/23 17:33 Dose: 999 mls/hr Documented By: CIRA Imaging Data Radiologist's Impression: Chest X-Ray 12/28/23 16:18 XR chest 1V portable CLINICAL HISTORY: Chest pain, nonspecific TECHNIQUE: Single frontal radiograph of the chest was obtained. Comparison: Comparison is made to chest radiograph 02/17/[address] chest 04/08/2013 FINDINGS: No lines and tubes are seen. Cardiomegaly is noted. The aortic arch is calcified. The lungs are clear. Blunting of the left costophrenic angle is seen. IMPRESSION: No acute chest disease. Blunting of left costophrenic angle is compatible with prominent extrapleural fat seen on prior CT. ACT 112: Negative or not required by law. Electronically signed by: Satya Myers M.D. 12/28/2023 5:42 PM Discharge Plan Visit Data Chief Complaint: Urinary Symptoms Stated Complaint: CONFUSION, UTI, BURNING/FREQUENT URINATION ED Provider: Amanda Arias Discharge Problem: Complicated urinary tract infection, Leukocytosis Forms Stand Alone Forms: [employer] Prescriptions Prescriptions: No Action multivitamin Tablet 1 tab PO QAM prednisone 5 mg tablet 10 mg PO QAM Rx Instructions: per rheumatology vitamin B complex [B Complex-Vitamin B12] Tablet 1 tab PO QAM warfarin 2 mg tablet 2 mg PO HS Rx Instructions: 2mg daily per [facility] orally use as directed acetaminophen 500 mg capsule 500 mg PO DAILY PRN (Reason: pain) ascorbic acid (vitamin C) 1,000 mg tablet 1 g PO QAM Calcium 600 + D(3) 600 mg calcium- 200 unit capsule 2 cap PO BID Qty: 0 celecoxib 200 mg capsule 200 mg PO QAM Qty: 90 3RF hydroxychloroquine 200 mg tablet 200 mg PO QAM Qty: 180 3RF Hold Instructions: pt will discuss with Dr. Stanford levothyroxine [Synthroid] 125 mcg tablet 125 mcg PO QAM Qty: 90 3RF olmesartan 5 mg tablet 5 mg PO QAM Qty: 90 3RF gabapentin 300 mg capsule 300 mg PO BID Qty: 180 3RF pravastatin 10 mg tablet 10 mg PO QDL Qty: 90 3RF oxycodone [OxyContin] 20 mg tablet,oral only,ext.rel.12 hr 20 mg PO QAM Qty: 30 0RF oxycodone-acetaminophen [Percocet] 5-325 mg tablet 1 tab PO TID Qty: 90 0RF diclofenac sodium 1 % gel 4 g Topical TID PRN (Reason: Pain) Qty: 100 3RF ketoconazole 2 % cream 1 applic topical BID Qty: 60 0RF Rx Instructions: apply to red spot on abdomen acetic acid 2 % solution 5 drp otic (ear) TID 5 Days Qty: 15 0RF Rx Instructions: apply to right ear rabeprazole [AcipHex] 20 mg tablet,delayed release (DR/EC) 20 mg PO BID Qty: 180 3RF naloxone [Narcan] 4 mg/actuation spray,non-aerosol 4 mg intranasal Q3M PRN (Reason: opioid overdose) Qty: 2 0RF Rx Instructions: spray 1 dose into ONE nostril; alternate nostrils w each dose until help arrives nitrofurantoin macrocrystal [Macrodantin] 100 mg capsule 100 mg PO QAM Rx Instructions: must administer with a meal/food sertraline 100 mg tablet See Rx Instructions .ROUTE .COMPLEX Rx Instructions: Take 100mg w/ 50mg tablet to equal 150mg by mouth at bedtime alprazolam [Xanax] 0.25 mg tablet 0.25 - 0.5 mg PO DAILY PRN (Reason: anxiety) zolpidem [Ambien] 10 mg tablet 10 mg PO HS PRN (Reason: Sleep) Rx Instructions: 1 tablet at night, as needed for sleep sertraline 50 mg tablet See Rx Instructions .ROUTE .COMPLEX Rx Instructions: Take 50mg w/ 100mg tablet to equal 150mg by mouth at bedtime Referrals Referrals: Terry Vaughan, [Primary Care Provider] -
[2023-12-28 18:25] LABS: Appearance Urine Turbid (Clear); Bacteria Urine Automated 4+ (None Seen); Bilirubin Urine Negative (Negative); Blood Urine 3+ (Negative); Color Urine Dark Yellow; Epithelial Cell Urine Auto 0-2 /hpf (0-2); Glucose Urine UA Negative (Negative); Ketones Urine Trace (Negative); Leukocyte Esterase Urine 3+ (Negative); Nitrite Urine Positive (Negative); Protein Urine 1+ (Negative); Specific Gravity Urine 1.021 (1.000-1.030); Urobilinogen Urine Negative (Negative); WBC Urine Automated >50 /hpf (0-5); pH Urine 5.5 (4.5-7.5)
[2023-12-28 18:43] LABS: Cast Urine Automated 0-2 /lpf (0-2)
[2023-12-28] MEDS: PIPERACILLIN/TAZOBACTAM 4.5 GM/100 ML BAG IV ONE (19:24)
[2023-12-28] MEDS: MEROPENEM 500 MG in SYRINGE 0 ML IV STA (19:44)
--- NOTE | 2023-12-28 19:50 | History & Physical Report ---
Date of Service December 28, 2023 Assessment & Plan (1) UTI (urinary tract infection): Plan: Previous resistant organisms including ESBL and Pseudomonas - therefore choice of antibiotics prior to culture results will be meropenem therefore need for inpatient admission Follow up urine and blood cultures (2) Anemia: Plan: Microcytic, Appears ot be chronic with Hgb 9.5 in Feb, 9.0 on admission, repeat with AM labs (3) Severe aortic stenosis: Plan: No symptoms per patient (4) HTN (hypertension): Plan: Hold olmesartan due to low BP (5) Hypothyroidism: Plan: TSH 0.539 in b Continue levothyroxine (6) GERD (gastroesophageal reflux disease): Plan: Switch rabeprazole to pantoprazole per hospital formulary (7) Rheumatoid arthritis: Plan: Continue Plaquenil and prednisone Continue chronic opiates with OxyContin 20mg PO daily with Percocet for breakthrough pain (she takes this regularly in addition at home) (8) Depression with anxiety: Plan: Continue sertraline Plan VTE Prphyalxis - On warfarin, held on admission due to supratherpeutic INR Diet - regular Disposition - admit to med/surg Admission and Anticipated Discharge Date Admission Date: December 28, 2023 History of Present Illness Chief Complaint: Dysuria Primary Care Provider: Terry Vaughan DO Ashley Sharpe is a 78-year-old female who presents to the ER with dysuria and confusion. She reports nearly 2 weeks of dysuria. Her two weeks ago and she has been in grieving therefore she has been ignoring her symptoms. No fever, chills or back pain. She denies any confusion but this was mentioned to the ER staff by a family member. She is orientated x3 in the ER. She denies any fever, chills, back pain. She denies any respiratory or gastrointestinal problems. She reports wanting to get home as soon as possible. Allergies Allergy/AdvReac Type Severity Reaction Status Date / Time amoxicillin [From Augmentin] Allergy Intermediate Hives Verified 12/28/23 18:43 bacitracin Allergy Intermediate hives Verified 12/28/23 18:43 clavulanic acid Allergy Intermediate Hives Verified 12/28/23 18:43 [From Augmentin] latex Allergy Intermediate localized Verified 12/28/23 18:43 swelling sulfamethoxazole Allergy Intermediate hives Verified 12/28/23 18:43 trimethoprim Allergy Intermediate hives Verified 12/28/23 18:43 menthol [From Calmoseptine] Allergy Mild redness/hiv Verified 12/28/23 18:43 es mineral oil [From Aquaphor] Allergy Mild redness/hiv Verified 12/28/23 18:43 es petrolatum,hydrophilic Allergy Mild redness/hiv Verified 12/28/23 18:43 [From Aquaphor] es zinc oxide Allergy Mild redness/hiv Verified 12/28/23 18:43 [From Calmoseptine] es tetracycline Allergy Unknown Unknown Verified 12/28/23 18:43 Home Medications Medication Instructions Recorded Confirmed Type acetaminophen 500 mg capsule 500 mg PO DAILY PRN pain 07/11/19 12/28/23 History calcium carbonate 600 mg-vitamin 2 cap PO BID #0 caps 10/16/19 12/28/23 History D3 5 mcg (200 unit) capsule (Calcium 600 + D(3)) multivitamin 1 tab PO QAM 08/18/21 12/28/23 History ascorbic acid (vitamin C) 1,000 mg 1 g PO QAM 12/01/21 12/28/23 History tablet prednisone 5 mg tablet 10 mg PO QAM 01/16/22 12/28/23 History vitamin B complex (B 1 tab PO QAM 12/08/22 12/28/23 History Complex-Vitamin B12 tablet) celecoxib 200 mg capsule 200 mg PO QAM #90 caps 02/05/23 12/28/23 Rx nitrofurantoin macrocrystal 100 mg 100 mg PO QAM 02/10/23 12/28/23 History capsule (Macrodantin) rabeprazole 20 mg tablet,delayed 20 mg PO BID #180 tabs 04/12/23 12/28/23 Rx release (AcipHex) hydroxychloroquine 200 mg tablet 200 mg PO QAM #180 tabs 06/24/23 12/28/23 Rx levothyroxine 125 mcg tablet 125 mcg PO QAM #90 tabs 07/21/23 12/28/23 Rx (Synthroid) olmesartan 5 mg tablet 5 mg PO QAM #90 tabs 08/27/23 12/28/23 Rx acetic acid 2 % ear solution 5 drp otic (ear) TID 5 days #15 mL 09/10/23 12/28/23 Rx ketoconazole 2 % topical cream 1 applic topical BID #60 grams 09/10/23 12/28/23 Rx gabapentin 300 mg capsule 300 mg PO BID #180 caps 11/15/23 12/28/23 Rx pravastatin 10 mg tablet 10 mg PO QDL #90 tabs 11/15/23 12/28/23 Rx naloxone 4 mg/actuation nasal 4 mg intranasal Q3M PRN opioid 11/24/23 12/28/23 Rx spray (Narcan) overdose #2 ea oxycodone 20 mg tablet,crush 20 mg PO QAM #30 tabs 11/24/23 12/28/23 Rx resistant,extended release 12 hr (OxyContin) oxycodone-acetaminophen 5 mg-325 1 tab PO TID #90 tabs 11/24/23 12/28/23 Rx mg tablet (Percocet) diclofenac sodium 1 % topical gel 4 g topical TID PRN Pain #100 grams 11/29/23 12/28/23 Rx warfarin 2 mg tablet 2 mg PO HS 12/20/23 12/28/23 History alprazolam 0.25 mg tablet (Xanax) 0.25 - 0.5 mg PO DAILY PRN anxiety 12/28/23 12/28/23 History sertraline 100 mg tablet See Rx Instructions .Route .COMPLEX 12/28/23 12/28/23 History sertraline 50 mg tablet See Rx Instructions .Route .COMPLEX 12/28/23 12/28/23 History zolpidem 10 mg tablet (Ambien) 10 mg PO HS PRN Sleep 12/28/23 12/28/23 History Past Med/Surg History Medical History Pulmonary hypertension Thrombus of aorta (1996) Severe aortic stenosis Postmenopausal Severe left ventricular hypertrophy Anxiety Anemia Serenity esophagitis History of CVA (cerebrovascular accident) Chronic gastroesophageal reflux disease (04/08/13) Hypertension Rheumatoid arthritis involving both hands with negative rheumatoid factor Scoliosis Hypothyroid Frequent UTI Infected prosthetic mesh of abdominal wall Cystocele with incomplete uterovaginal prolapse Antiphospholipid antibody syndrome FDC (current) use of systemic steroids MRSA infection Osteoarthritis Osteopenia Peripheral neuropathy Stress incontinence in female FDC (current) use of anticoagulants PAD (peripheral artery disease) History of DVT (deep vein thrombosis) Surgical History S/P foot surgery, left History of embolectomy (1996) History of esophagogastroduodenoscopy (EGD) Hx of tonsillectomy H/O foot surgery History of surgical procedure on eye proper using laser History of ligation of vein History of hernia repair History of ventral hernia repair History of cataract surgery History of appendectomy Family History Mother Hypertension Daughter Systemic lupus erythematosus Antiphospholipid antibody syndrome Father No problems noted. Other Heart disease Nephrolithiasis No family history of adverse response to anesthesia Denies family history of Prostate cancer Hearing loss Cancer Stroke Social History Smoking Status: Never smoker Second Hand Exposure: Yes; Do You Dip or Chew Tobacco: No; Hx Alcohol Use: No Hx Substance Use: No Preferred Language: Nigerian Communication Ability: Effective Visual Impairment: No Limitations Hearing Ability: Normal Associate Programmer Analyst Required: No Beliefs That Will Affect Care: None marital status: Current Living Situation: Alone Current Living Situation Comment: family lives nearby per pt current occupational status: retired How many Children do You have: 2 Feels Safe at Home: Yes Safety Concerns: Feels Safe At This Time caffeine: Yes Dental Care, Regularly: Yes Seatbelt Use: sometimes Sunscreen Use: Yes Assistive Devices: Bedside Commode, Glasses and Walker Review of Systems Review of Systems: All systems reviewed & are unremarkable except as noted in HPI & below Physical Exam Constitutional: well developed and + frail appearing; + not well nourished and no acute distress Eyes: PERRL, conjunctivae normal, anicteric sclerae Respiratory: normal respiratory effort, lungs clear to auscultation Cardiovascular: Rate/Rhythm: regular rate and regular rhythm Heart Sounds: + murmur (Systolic ejection throughout) Gastrointestinal (Abdomen): normal bowel sounds, soft, nontender, no hepatosplenomegaly Musculoskeletal: no cyanosis or clubbing, extremities motor strength 5/5 Skin: no rashes, warm and dry Neurologic: moves all extremities and awake; not confused Psychiatric: A+Ox3, euthymic affect Genitourinary: no CVA tenderness Results & Data Results & Data Vital Signs (Past 12 Hours) Vital Signs Temp Pulse Pulse Resp BP BP Pulse Ox 12/28/23 19:45 85 12 107/52 L 98 12/28/23 18:00 71 12/28/23 17:33 100 12/28/23 17:33 76 18 105/52 L 100 12/28/23 16:14 36.8 C 84 20 137/73 97 O2 Del Method 12/28/23 19:45 Room Air 12/28/23 18:00 12/28/23 17:33 Room Air 12/28/23 17:33 Room Air 12/28/23 16:14 Laboratory Results Abnormal lab results 12/28/23 12/28/23 12/28/23 Range/Units 17:04 17:26 19:30 WBC 15.85 H (4.8-10.8) K/ul RBC 3.64 L (4.20-5.40) M/uL Hgb 9.0 L (12.0-16.0) g/dl Hct 29.1 L (37.0-47.0) % MCV 79.9 L (80.0-100.0) fL MCH 24.7 L (25.0-34.0) pg MCHC 30.9 L (32.0-36.0) g/dL RDW Std Deviation 50.4 H (36.4-46.3) fL RDW Coeff of Fernando 17.2 H (11.5-14.5) % Neut # (Auto) 14.38 H (1.40-6.50) K/uL Lymph # (Auto) 0.41 L (1.20-3.40) K/uL [place] # (Auto) 0.76 H (0.11-0.59) K/uL PT 37.0 H (9.0-12.0) Seconds INR 3.7 H (0.9-1.1) APTT 51 H (21-31) Seconds Sodium 133 L (136-145) mmol/L BUN 35 H (6-23) mg/dl BUN/Creatinine Ratio 42.7 H (10-20) Glucose 107 H (70-99(Fasting)) mg/dl Troponin I High Sens 29.0 H 30.4 H (0-14) pg/ml Lipase 10 L (11-82) U/L Urine Appearance Turbid A (Clear) Urine Protein 1+ H (Negative) Urine Ketones Trace H (Negative) Urine Blood 3+ H (Negative) Urine Nitrite Positive A (Negative) Ur Leukocyte Esterase 3+ H (Negative) Urine WBC (Auto) >50 H (0-5) /hpf Urine RBC (Auto) 3-5 H (0-2) /hpf Urine Bacteria (Auto) 4+ H (None Seen) Diagnostic Findings XR chest 1V portable CLINICAL HISTORY: Chest pain, nonspecific TECHNIQUE: Single frontal radiograph of the chest was obtained. Comparison: Comparison is made to chest radiograph 02/17/[address] chest 04/08/2013 FINDINGS: No lines and tubes are seen. Cardiomegaly is noted. The aortic arch is calcified. The lungs are clear. Blunting of the left costophrenic angle is seen. IMPRESSION: No acute chest disease. Blunting of left costophrenic angle is compatible with prominent extrapleural fat seen on prior CT. Medications Administered ER Medications Given: Normal saline 500ml bolus Zosyn (discontinued prior to being given) ECG Rate (beats per minute): 79 Rhythm: normal sinus Findings: + LAFB Comparison ECG Date: from (February 04, 2023) Change: no significant change Code Status & VTE Plan Code Status Full VTE Prophylaxis Plan VTE Prophylaxis will be ordered: Yes PG Care Time/CCT Total # of Minutes Spent Total Time Spent with Patient: Total time spent is greater than 50% in coordination of care (as documented) at patient's floor/unit and/or counseling patient: Coding Level of Care Code 17156 INT INP/OBS CARE 3/75MIN Diagnoses UTI (urinary tract infection) N39.0 Anemia D64.9 Severe aortic stenosis I35.0 HTN (hypertension) I10 Hypothyroidism E03.9 GERD (gastroesophageal reflux disease) K21.9 Rheumatoid arthritis M06.9 Depression with anxiety F41.8
[2023-12-28] MEDS ORDERED: ALPRAZolam 0.25 MG TABLET PO PRN (22:30)
[2023-12-28] MEDS ORDERED: oxyCODONE/ACETAMINOPHEN 5mg/325mg TAB PO PRN (22:30)
[2023-12-28] MEDS: Patient's HEIGHT &/or WEIGHT Needed STA (22:39)
[2023-12-29] MEDS: ACETIC ACID 2% OTIC SOLN 15 ML BTL OT SCH (00:11)
[2023-12-29] MEDS: GABAPENTIN 300 MG CAP PO SCH (00:12)
[2023-12-29] MEDS: CALCIUM 600MG + VIT D 400 IU TAB PO SCH (00:13)
[2023-12-29] MEDS: PANTOprazole 40 MG TAB PO SCH (00:13)
[2023-12-29] MEDS: SERTRALINE HCL 100 MG TABLET PO SCH (00:14)
[2023-12-29] MEDS: SERTRALINE HCL 50 MG TABLET PO SCH (00:14)
[2023-12-29] MEDS: MEROPENEM 500 MG in SYRINGE 0 ML IV SCH (02:37)
[2023-12-29] MEDS: LEVOTHYROXINE SODIUM 125 MCG TABLET PO SCH (06:11)
--- OUTSIDE RECORDS SUMMARY | 2023-12-29 07:47 | External Medical Summary | Summary of Care ---
Author Name Unknown Organization [facility] Address [address] [place] [address] Phone [phone] Care Team Providers Care Sash Repairer Name Role Phone Unavailable Primary Care Provider Unavailabl e Reason for Visit * Reason Comments Rheum Follow Up Follow up - RA Encounter Details Date Type Department Care Team (Latest Contact Info) Description 12/20/2023 10:30 AM EDT Office Visit Rheumatology [place] [id number] [place] [address] Deepthi Mccord CRNP [facility] [place] [address] Rheumatoid arthritis of multiple sites without rheumatoid factor (HCC)*; GENERAL OSTEOARTHROSIS ; Encounter for long-term (current) use of medications; 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 hives Quinolones 08/28/2008 nausea Clavulanic Acid 05/14/2016 Latex 07/21/2004 Swelling of mouth Latex Edema face/lips/tongue High 01/10/2019 Menthol Low 03/30/2022 Other reaction(s): redness/hives Mineral Oil Low 03/30/2022 Other reaction(s): redness/hives Sulfa Antibiotics 07/27/2003 Hives Tetracycline 01/10/2019 Trimethoprim High 03/30/2022 Other reaction(s): hives documented as of this encounter (statuses as of 12/20/2023) Medications Medication Sig Dispensed Refills Start Date End Date Status ENDOCET 5-325 MG OR TABSIndications:Hem orrhagic disorder due to intrinsic circulating anticoagulants 2 tabs tid 60 0 06/24/2004 Active SYNTHROID 125 MCG OR TABSIndications:Hyp othyroidism 1 TABLET DAILY 90 1 03/16/2006 Active PRAZOSIN HCL 1 MG PO CAPSIndications:Hem orrhagic disorder due to intrinsic circulating anticoagulants one pill twice a day 180 1 03/16/2006 Active Additional Information Patient taking differently: 2 mgOralBID (.AM/PM), Reported on 12/31/2022 OXYCONTIN 20 MG PO [id number]:Hem orrhagic disorder due to intrinsic circulating anticoagulants one pill bymouth every 12 hours 60 0 03/16/2006 Active Additional Information Patient taking differently: 10 mgOral, Reported on 06/05/2021 ACIPHEX 20 MG PO TBECIndications:Eso phageal reflux Take by mouth 2 times a day. 90 1 01/20/2007 Active XANAX 0.25 MG PO TABS Take by mouth 3 times a day. 0 Active TRIAMTERENE-HCTZ 37.5-25 MG PO CAPS 1 tab daily 0 07/20/2014 Activ e WARFARIN SODIUM 5 MG PO TABS 1 tab daily 0 07/22/2014 Active CELECOXIB 200 MG PO CAPS Take 1 Capsule by mouth in the morning and 1 Capsule before bedtime. 0 11/03/2014 Active VOLTAREN 1 % TD GEL None Entered 0 09/04/2014 Act abhishek Ketoconazole 2 % creamIndications:Ti diane corporis Apply topically to affected area 2 times a day. Apply to rash under the right breast twice daily x 2 weeks. 30 g 0 01/22/2015 Active silver sulfadiazine (SILVADENE) 1 % creamIndications:To e ulcer, right, limited to breakdown of skin (HCC) Apply to area on the rt toe daily 50 g 1 07/01/2016 Active econazole nitrate (SPECTAZOLE) 1 % creamIndications:Ti diane pedis of both feet Apply to feet and right lower leg twice daily x 2 weeks. 30 g 1 03/24/2018 Active zolpidem (AMBIEN) 10 MG TabletIndications:H ypothyroidism Take 1 Tab by mouth at bedtime. As needed 90 Tab 0 01/12/2019 Active mupirocin calcium (BACTROBAN) 2 % ointmentIndications :Ulcer of great toe, right, with fat layer exposed (HCC) Apply to sores on the toe three times per day 15 g 3 05/31/2020 Active Lidocaine HCl 2 % External Gel Apply to ulcers twice daily as needed for pain 30 mL 5 05/22/2021 Active oxyCODONE-Acetamino phen 5-325 MG Oral Tablet Take 1 Tablet by mouth in the morning and 1 Tablet at noon and 1 Tablet before bedtime. 0 Active Ondansetron 4 MG Oral Tablet Disintegrating (Zofran) 0 04/29/2021 Active Probiotic Acidophilus BioBeads Oral Capsule Take 1 Cap by mouth daily. 0 Active Nitrofurantoin Macrocrystal 100 MG Oral Capsule (Macrodantin) 0 05/18/2022 Active Diclofenac Sodium 1 % External Gel (Voltaren) 0 12/11/2022 Active Gabapentin 400 MG Oral Capsule (Neurontin) 0 11/10/2022 Active Olmesartan Medoxomil 5 MG Oral Tablet (Benicar) 0 11/21/2022 Active Pravastatin Sodium 10 MG Oral Tablet (Pravachol) 0 10/20/2022 Active Sertraline HCl 100 MG Oral Tablet (Zoloft) 0 11/10/2022 Active predniSONE 5 MG Oral Tablet (Deltasone) 2 TABLETS DAILY MAINTENANCE 180 Tablet 3 06/17/2023 Active predniSONE 10 MG Oral Tablet (Deltasone) Take 30mg daily for 4 days then 20mg daily for 4 days the resume home dosing 20 Tablet 2 06/17/2023 Active Hydroxychloroquine Sulfate 200 MG Oral Tablet (Plaquenil) Take 1 Tablet by mouth daily. 90 Tablet 0 06/25/2023 Active Allopurinol 100 MG Oral Tablet 0 Active Calcium-Vitamin D-Vitamin K 500-100-40 MG-UNT-MCG Oral Tablet Chewable 0 Active Mycophenolate Mofetil 250 MG Oral Capsule (CellCept) 0 Active Naloxone HCl 4 MG/0.1ML Nasal Liquid (Narcan) Start: 06/02/23 8:06:00 EDT 0 06/02/2023 Active CALTRATE 600 PLUS-VIT D 600-200 MG-IU OR TABS one pill twice a day 0 01/02/2003 4 Discontinu ed(Medicat ion List Clean Up) Calcium + D3 600-800 MG-UNIT Oral Tablet (Calcium Carb-Cholecalcifero l) Take 1 Tab by mouth 2 times a day. 0 4 Discontinu ed(Medicat ion List Clean Up) documented as of this encounter (statuses as of 12/20/2023) Active Problems Problem Noted Date Diagnosed Date Hx of actinic keratosis 01/20/2022 Overview: AKs, hAKs Chronic narcotic use 04/04/2019 APS (antiphospholipid syndrome) 01/10/2019 DAYANARA positive 01/10/2019 halfway current use of systemic steroids 01/10 DDD (degenerative disc disease), lumbar 01/11/20 19 Primary osteoarthritis of both knees 01/10/2019 Rheumatoid arthritis of mult iple sites without rheumatoid factor 01/10/2019 Encounter for long-term (current) use of medicat ions 01/10/2019 Toe ulcer, right 07/01/2016 Ulcer of toe 05/14/2016 Hx of nonmelanoma skin cancer 01/12/2013 Overview: 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 ICD-10 update of inactive term Encounter for change or removal of surgical woun d dressing 11/26/2008 Hypopotassemia 10/20/2008 Acute posthemorrhagic anemia 10/12/2008 Other ventral hernia without mention of obstruction or gangrene 08/06/2008 JOINT PAIN-UNSPEC 02/24/2005 Hypothyroidism 02/24/2005 GENERAL OSTEOARTHROSIS 06/24/2004 Hemorrhagic disorder due to intrinsic circulating anticoagulants 07/27/2003 Overview: ICD-10 update of inactive term documented as of this encounter (statuses as of 12/20/2023) Resolved Problems Problem Noted Date Diagnosed Date Resolved Date SCC (squamous cell carcinoma), scalp/neck 05/27/2018 01/20/2022 DM type 1, not at goal 11/08/200807/04 Overview: Modified per Diabetes protocol #14. documented as of this encounter (statuses as of 12/20/2023) Immunizations Name Administration Dates Next Due COVID-19 mRNA, LNP-s, No Pre serve, 2-Dose Series (Nubli) 08/21/2021,11/13/2020,10/23/2020 documented as of this encounter Social History Tobacco Use Types Packs/Day Years Used Date Smoking Tobacco: Never Smokeless Tobacco: Never Tobacco Cessation:Counseling Given: Not Answered Alcohol Use Standard Drinks/Week Comments No 0 (1 standard drink = 0.6 oz pur e alcohol) Sex and Gender Information Value Date Recorded Sex Assigned at Female 12/20/2023 10:12 AM EDT Gender Identity Female 12/20/2023 10:12 AM EDT Sexual Orientation Straight 12/20/2023 10 :12 AM EDT Job Start Date Occupation Industry Not on file Not on file Not on file documented as of this encounter Last Filed Vital Signs Vital Sign Reading Time Taken Comments Blood Pressure - - Pulse - - Temperature 36.3 C (97.3 F) 12/20/2023 10:28 AM E DT Respiratory Rate - - Oxygen Saturation - - Inhaled Oxygen Concentration - - Weight - - Height - - Body Mass Index - - documented in this encounter Functional Status Functional Status Response Date of Assess ment Are you deaf or do you have serious difficulty h earing? No 05/21/2022 Are you blind or do you have serious difficulty seeing, even when wearing glasses? No 05/21/2022 Do you have serious difficul ty walking or climbing stairs? (5 years old or older) No 05/21/2022 Do you have difficulty dress ing or bathing? (5 years old or older) No 05/21/2022 Because of a physical, menta l, or emotional condition, do you have difficulty doing errands alone such as visiting a doctor s office or shopping? (15 years old or older) No 05/21/20 22 Cognitive Status Response Date of Assessm ent Because of a physical, menta l, or emotional condition, do you have serious difficulty concentrating, remembering, or making decisions? (5 years old or older) No 05/21/2022 documented as of this encounter Patient Instructions * Patient Instructions* Deepthi Mccord CRNP - 12/20/2023 10:59 AM EDT Discuss plaquenil use at eye doctor have them fax reports to [phone] Dec prednisone to 7.5mg daily Follow up 1 year Continue current medications Contact clinic with any questions or concerns Complications of chronic steroids include, but are not limited to, obesity, hypertension, diabetes,osteoporotic fractures, avascular necrosis, glaucoma, cataracts, cushingoid features, atherosclerotic disease, myopathy, depression, psychosis, and infections. Prednisone at 10 mg per day increases the risk of a cardiovascular event by a factor of 2.5, and patients on 20 mg of prednisone daily havefive times the risk of a cardiac event (Alexis, Am J Epi 2012). Doses greater than 6 mg per day increase the risk of end-organ damage by 50%, while doses greater than 18 mg increase the 2.5-fold (Miguel Angel, J Rheum 2009). For these reasons we recommend tapering and/or discontinuing prednisone wheneverpossible. documented in this encounter Progress Notes * Deepthi Mccord CRNP - 12/20/2023 10:43 AM EDT Images from the original note were not included. Assessment and Plan Rheumatoid arthritis of multiple sites without rheumatoid factor (HCC) GENERAL OSTEOARTHROSIS Encounter for long-term (current) use of medications halfway current use of systemic steroids Mrs. Sharpe is stable from an RA standpoint on Plaquenil and prednisone. I discussed her joint pains can are secondary to osteoarthritis. She continues on pain medication for chronic pain management.We will continue Plaquenil and decrease prednisone by 7.5 mg daily as tolerated. Patient was tearful throughout her visit, offered condolences and comfort. Will continue to monitor labs for medication toxicity, patient states she we will have her blood work ordered by her PCP. Labs reviewed from [facility]. Education on chronic steroid use provided during the visit and on checkout note. Continue yearly eye exam. Encouraged patient to contact clinic with any questions or concerns. Discussed the above in detail with the patient. All questions answered. Rheumatology Synopsis: [facility] RA SYNOPSIS Current Treatment: HCQ (Prednisone) (12/20/2023 12:00 PM) 2009 Classification Criteria: Y (12/20/2023 12:00 PM) Seropositive or seronegative: Seronegative (12/20/2023 12:00 PM) Disease activity: Stable Patient History History of Present Illness HPI:78 year old female presented to rheumatology clinic for Rheum Follow Up (Follow up - RA)and OA.Previous note reviewed from 12/31/2022 with Gosia. She is accompanied with her brother today. She reports recently losing her 6 weeks ago and is tearful. She reports her hands are stiff at times without swelling. She notes that Voltaren gel improves knee and joint pains. She continues taking Plaquenil 1 tablet daily with out adverse effects. She continues on 10 mg of Prednisone daily and continues pain medication as well. She reports pain is 6/10 today. Reports she feels stable on her current medication therapy. ROS: Review of Systems was asked and the following other significant symptoms are present: joint pain, right bicep pain Rheumatology History Subjective Patient's past history, medications, and allergies were reviewed. Objective Physical Exam Temp 36.3 C (97.3 F) (Infrared ) Constitutional: no acute distress, tearful at times Neck: supple, normal range of motion CV: Regular rate and rhythm murmur noted Chest: normal respiratory effort, lungs clear to auscultation and percussion Abdomen: normal: soft, bowel sounds normal, no masses, tenderness or organomegaly Musculoskeletal: Chronic changes to both hands from RA with synovitis thickening of the 2nd and 3rdMCPs R>L Extremities: no clubbing, cyanosis, or edema, otherwise grossly normal, warm, and dry Skin: warm, dry, intact, dry skin, discoloration : Neuro: alert, oriented to person, place, and time, normal mental status exam, gait normal, sensory normal MSK/Joint exam (Homunculus) MSK Exam findings: Homunculus exam Studies: Labs and Imaging studies reviewed with pertinent findings noted below: Disease Treatment Response CDAI Scoring Patient Global: 50 mm Provider Global: 20 mm Tender (NIÑO-28): 0 / 28 Swollen (NIÑO-28): 2 / 28 CDAI: 9 CDAI (Clinical Disease Activity Index) [facility] Outcomes measures: Serial CDAI: Synopsis SmartLink 12/20/2023 10:30 CDAI CDAI 9 - Serial CDAI: - No - Remission: - No - low disease activity Currently on csDMARD: Yes Currently on Biologic DMARD: No Vaccination status: COVID: Vaccine and/or Health maintenance status Incomplete Influenza:Vaccine complete for this season Pneumococcal:Vaccine and/or Health maintainance status Incomplete Zoster:Vaccine and/or Health Maintainance Incomplete Last Hepatitis and TB testing: Hepatitis B: Not Tested, results not available Hepatitis C: Not Tested, results not available PPD or TB-Gold: Not Tested, results not available No results found for: "HBSAG", "HEPB", "HCVAB" No results found for: "TB GOLD AG NIL", "TB GOLD MITOGEN NIL", "PPD INDURATION", "PPD-OUTSIDE LAB","QUANTIFERON GOLD TB", "QUANTIFERON-TB PLUS", "QUANTIFERON-TB PLUS,1T", "QUANTIFERON-TB PLUS,4T" Labs reviewed from 11/05/2023 CBC, CMP Wrap-Up Follow Up: Return in about 1 year (around 12/19/2024) for Clinic Visit. | For: Clinic Visit PLAN Discuss plaquenil use at eye doctor have them fax reports to [phone] Dec prednisone to 7.5mg daily Follow up 1 year Continue current medications Contact clinic with any questions or concerns CC. Dr. Vaughan Time: I spent a total of 30-39 minutes (exact time 35 mins) on the date of service in preparation, delivery, and documentation of the care provided to Ashley Sharpe excluding any time spent in the performance of separately billed services. ANGIE Cruz Rheumatology Department The patient was discussed with me. I agree with the findings and plan as documented by Deepthi ADAMS/ in this note. Raymond Sánchez MD Rheumatology Department documented in this encounter Nursing Notes * Lise Encinas LPN - 12/20/2023 10:25 AM EDT Chief Complaint Patient presents with Rheum Follow Up Follow up - RA documented in this encounter Plan of Treatment Upcoming Encounters Date Type Department Care Team (Late st Contact Info) Description 01/27/2024 11:20 AM EDT Office Visit Dermatology, [place] [address] [place] [address] Carol Najera PA-C [address] [place] [address] [place] [address] 12/20/2024 10:30 AM EDT Office Visit Rheumatology [place] [id number] [place] [address] Deepthi Mccord CRNP [address] [place] [address] Health Maintenance Due Date Last Done Comments Pneumococcal Vaccine: 65+ Years (1 of 2 - PCV) 1953 Depression Screening 1959 Albumin/Creatinine Ratio 1965 Diabetic Foot Exam 1965 Hepatitis C Screening 1965 DTaP,Tdap,and Td Vaccines (1 - Tdap) 1966 Zoster Vaccines (1 of 2) 1966 HbA1c 03/06/2022 09/05/2021 TSH 09/05/2022 09/05/2021, 08/04/2020, 10/14/2008, Additional history exists COVID-19 Vaccine ( season) 2023 08/12/2022, 08/21/2021, 07/21/2021, Additional history exists GFR 01/05/2024 01/04/2023, 08/20, 05/17/2020, Additional history exists Diabetic Eye Exam 01/09/2024 01/08/2023, , 09/04/2019, Additional history exists Influenza Vaccine (FLU shot) (Season Ended) 2024 07/10/2019 DXA Scan 03/28/2026 03/28/2019 GARDASIL-HPV IMMUNIZATION SERIES Aged Out No longer eligible based on patient's age to complete this topic Hepatitis B Aged Out No longer eligi ble based on patient's age to complete this topic MENINGOCOCCAL (MENACTRA/MENVEO) Aged Out No longer eligible based on patient's age to complete this topic documented as of this encounter Medical Devices Implanted Type Area Lace Pinner Device Identifier Shelf Expiration Date Model / Serial / Lot Mesh Composix [id number] - [id number] Implanted:Qty: 1 on 10/10/2008 [place] [facility] [place]: Abdomen CR BARD : DAVOL 11/18/2012 [id number] / / [id number] Mesh Composix [id number] - [id number] Implanted:Qty: 1 on 10/15/2008 [place] [facility] [place]A: Abdomen CR BARD : DAVOL 10/15/2008 [id number] / / [id number] documented as of this encounter Visit Diagnoses Diagnosis Rheumatoid arthritis of multiple sites without rheumatoid factor (HCC)- Primary Rheumatoid arthritis GENERAL OSTEOARTHROSIS Generalized osteoarthrosis, unspecified site Encounter for long-term (current) use of medications Encounter for long-term (current) use of other medications 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 Code Status History Code Status Date Activated Date Inactivated Comments Full Code 10/14/2008 4:51 AM 10/24/2008 5:07 PM Full Code 10/10/2008 10:17 PM 10/14/2008 4:51 AM
[2023-12-29] MEDS: VITAMIN B COMPLEX TAB PO SCH (09:28)
[2023-12-29] MEDS: HYDROXYCHLOROQUINE SULFATE 200 MG TAB PO SCH (09:28)
[2023-12-29] MEDS: predniSONE 10 MG TABLET PO SCH (09:28)
[2023-12-29] MEDS: CeleBREX 200 MG CAP PO SCH (09:28)
[2023-12-29] MEDS: oxyCODONE HCL 20 MG TABCR (OxyCONTIN) PO SCH (09:28)
[2023-12-29 09:33] LABS: Basophils # (auto) 0.16 K/uL (0.00-0.20); Eosinophils # (auto) 1.22 K/uL (0.00-0.50); Eosinophils % (auto) 7.7 %; Hematocrit (blood only) 27.1 % (37.0-47.0); Hemoglobin 8.5 g/dl (12.0-16.0); Immature Granulocytes # (auto) 0.12 K/uL (0.01-0.20); Immature Granulocytes % (auto) 0.8 %; Lymphocytes # (auto) 1.28 K/uL (1.20-3.40); Mean Corpuscular Hemoglobin 24.5 pg (25.0-34.0); Mean Corpuscular Hgb Conc 31.4 g/dL (32.0-36.0); Mean Corpuscular Volume 78.1 fL (80.0-100.0); Mean Platelet Volume 11.5 fL (9.4-12.4); Monocytes # (auto) 1.51 K/uL (0.11-0.59); Monocytes % (auto) 9.5 %; Neutrophils # (auto) 11.65 K/uL (1.40-6.50); Platelet Count 304 K/uL (130-400); RDW Coefficient of Variation 17.5 % (11.5-14.5); RDW Standard Deviation 49.5 fL (36.4-46.3); Red Blood Count 3.47 M/uL (4.20-5.40); Reticulocyte % 1.63 % (0.50-2.00); White Blood Count 15.94 K/ul (4.8-10.8)
[2023-12-29 09:47] LABS: BUN Creatinine Ratio 36.4 (10-20); Calcium 9.2 mg/dl (8.6-10.3); Creatinine Clr Calc Pharmacy 63.6 ml/min; Est GFR (African American) 99.5 ml/min; Est GFR (Non-African American) 85.8 ml/min; Potassium 4.1 mmol/L (3.5-5.1)
[2023-12-29 09:56] LABS: INR 2.9 (0.9-1.1); Prothrombin Time 29.3 Seconds (9.0-12.0)
[2023-12-29 10:21] LABS: Folate (Folic Acid),Ser orPlas > 22.30 ng/ml (>5.38); Vitamin B12 581 pg/ml (180-914)
[2023-12-29] MEDS ORDERED: DICLOFENAC SOD 1% GEL 100 GM TUBE EXT PRN (10:48)
[2023-12-29] MEDS: MULTIVITAMIN TAB PO SCH (11:41)
[2023-12-29] MEDS: ASCORBIC ACID 500 MG TAB PO SCH (11:41)
[2023-12-29] MEDS: PRAVASTATIN SOD 10 MG TAB PO SCH (11:41)
[2023-12-29] MEDS: WARFARIN SOD 2 MG TAB PO SCH (17:22)
--- NOTE | 2023-12-29 19:30 | Hospitalist Progress Note ---
Date of Service December 29, 2023 Assessment & Plan (1) UTI (urinary tract infection): Plan: Previous resistant organisms including ESBL E. coli and Pseudomonas, Klebsiella, Proteus but with + nitrite, would not have Pseudomonas Continue meropenem for now Ur cx mixed organisms so treat empirically and can convert to ertapenem-pt wishes to do home IV abx Follow blood cultures Asymptomatic now, feeling well (2) Anemia: Plan: Microcytic, chronic but progressively worsening, with Hgb 9.5 in Feb, 9.0 on admission, now 8.5 Fe studies show Fe deficiency, B12, folate, and TSH from Feb normal Had vaginal bleeding 2 weeks ago when INR high, has never had colonoscopy but denies any GIB CT a/p 2020 showed thickened endometrium but pt declined to have further [employer] workup Start IV Venofer daily while here as pt has long standing issues with constipation and po Fe may worsen that Follow CBC< monitor for bleeding outpt workup if desired to include [employer]OR and GI follow up (3) Severe aortic stenosis: Plan: No symptoms per patient (4) HTN (hypertension): Plan: Hold olmesartan due to low BP and may not need to reusme (5) Hypothyroidism: Plan: TSH 0.539 in Feb Continue levothyroxine (6) GERD (gastroesophageal reflux disease): Plan: continue PPI (7) Rheumatoid arthritis: Plan: Continue Plaquenil and prednisone, Celebrex Continue chronic opiates with OxyContin 20mg PO daily with Percocet for breakthrough pain (she takes this regularly in addition at home) (8) Depression with anxiety: Plan: Continue sertraline exacerbated now by appropriate grief from loss of her supportive listening provided (9) Leukocytosis: Plan: WBC count always elevated for several years, neutrophilia-perhaps only checked when ill? 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 No abd pain, no back pain, no fevers, is eating, moved bowels this AM. Denies bleeding from anywhere. Spoke with daughter on phone who said pt was having bleeding on her pad in her underwear about 2 weeks ago and pt shrugged it off. She has not had a colonoscopy in the past as she declined to do so. Physical Exam Constitutional: WD/WN, vitals as above Respiratory: normal respiratory effort, lungs clear to auscultation Cardiovascular: Rate/Rhythm: regular rate and regular rhythm Heart Sounds: no murmur (3/6 KAREN at RUSB) Gastrointestinal (Abdomen): normal bowel sounds, soft, nontender, no hepatosplenomegaly Psychiatric: A+Ox3, euthymic affect Results & Data Results & Data Vital Signs (Past 12 Hours) Vital Signs Temp Pulse Resp BP Pulse Ox O2 Del Method 12/29/23 14:38 36.9 C 84 16 92/54 L 97 Room Air Laboratory Results CBC, BMP, INR reviewed PG Care Time/CCT Total # of Minutes Spent Total Time Spent with Patient: Total time spent is greater than 50% in coordination of care (as documented) at patient's floor/unit and/or counseling patient: Coding Level of Care Code 93742 SUB INP/OBS CARE 3/50MIN Diagnoses UTI (urinary tract infection) N39.0 Anemia D64.9 Severe aortic stenosis I35.0 HTN (hypertension) I10 Hypothyroidism E03.9 GERD (gastroesophageal reflux disease) K21.9 Rheumatoid arthritis M06.9 Depression with anxiety F41.8 Leukocytosis D72.829 intermediate (current) use of anticoagulants Z79.01
[2023-12-29] MEDS: ZOLPIDEM TARTRATE 10 MG TAB PO PRN (20:23)
[2023-12-30 06:46] LABS: Basophils # (auto) 0.15 K/uL (0.00-0.20); Basophils % (auto) 1.1 %; Eosinophils # (auto) 1.16 K/uL (0.00-0.50); Eosinophils % (auto) 8.5 %; Hematocrit (blood only) 25.6 % (37.0-47.0); Hemoglobin 7.8 g/dl (12.0-16.0); Immature Granulocytes # (auto) 0.13 K/uL (0.01-0.20); Lymphocytes # (auto) 1.28 K/uL (1.20-3.40); Lymphocytes % (auto) 9.4 %; Mean Corpuscular Hgb Conc 30.5 g/dL (32.0-36.0); Mean Corpuscular Volume 78.8 fL (80.0-100.0); Mean Platelet Volume 11.6 fL (9.4-12.4); Monocytes # (auto) 1.32 K/uL (0.11-0.59); Monocytes % (auto) 9.7 %; Neutrophils # (auto) 9.53 K/uL (1.40-6.50); Neutrophils % (auto) 70.3 %; Platelet Count 285 K/uL (130-400); RDW Coefficient of Variation 17.2 % (11.5-14.5); Red Blood Count 3.25 M/uL (4.20-5.40); White Blood Count 13.57 K/ul (4.8-10.8)
[2023-12-30 07:01] LABS: Calcium 8.9 mg/dl (8.6-10.3); Potassium 3.9 mmol/L (3.5-5.1)
[2023-12-30 07:07] LABS: BUN Creatinine Ratio 32.9 (10-20); Creatinine Clr Calc Pharmacy 57.5 ml/min; Est GFR (African American) 92.7 ml/min
[2023-12-30 07:31] LABS: Poikilocytosis Present
[2023-12-30] MEDS: IRON SUCROSE 300 MG in SODIUM CHLORIDE 0.9% 250 ML IV SCH (08:27)
[2023-12-30 12:20] LABS: INR 2.4 (0.9-1.1); Prothrombin Time 24.5 Seconds (9.0-12.0)
--- NOTE | 2023-12-30 15:11 | Hospitalist Progress Note ---
Date of Service December 30, 2023 Assessment & Plan (1) UTI (urinary tract infection): Plan: P/w dysuria and weakness Previous resistant organisms including ESBL E. coli and Pseudomonas, Klebsiella, Proteus but with + nitrite, would not have Pseudomonas Continue meropenem for now Ur cx mixed organisms so treat empirically-plan to convert to ertapenem for once daily dosing at time of discharge to rehab now planned tomorrow Follow blood cultures-NGTD Asymptomatic now, feeling well (2) Anemia: Plan: Microcytic, chronic but progressively worsening, with Hgb 9.5 in Feb, 9.0 on admission, 8.5, and now 7.8--> no bleeding noted here from anywhere on nursing assessments COuld be some degree of lab error +/- margin of error Fe studies show Fe deficiency with transferrin sat only 7, ferritin low normal at 35, B12, folate, and TSH from Feb normal Had vaginal bleeding 2 weeks ago when INR high, has never had colonoscopy but denies any GIB CT a/p 2020 showed thickened endometrium but pt declined to have further COMPUTER FIELD TECHNICIAN workup Start IV Venofer daily while here as pt has long standing issues with constipation and po Fe may worsen that-give second dose tomorrow Follow CBC and monitor for bleeding outpt workup if desired to include COMPUTER FIELD TECHNICIAN and GI follow up (3) Severe aortic stenosis: Plan: No symptoms per patient (4) HTN (hypertension): Plan: Hold olmesartan due to low BP and may not need to reusme (5) Hypothyroidism: Plan: TSH 0.539 in Feb Continue levothyroxine (6) GERD (gastroesophageal reflux disease): Plan: continue PPI (7) Rheumatoid arthritis: Plan: Continue Plaquenil and prednisone, Celebrex Continue chronic opiates with OxyContin 20mg PO daily with Percocet for breakthrough pain (she takes this regularly in addition at home) (8) Depression with anxiety: Plan: Continue sertraline exacerbated now by appropriate grief from loss of her and having to go to rehab supportive listening provided (9) Leukocytosis: Plan: WBC count always elevated for several years, neutrophilia-perhaps only checked when ill? WBC count 15 on admission and now down to 13 Also on chronic prednisone could be reactive to Fe def anemia peripheral smear ordered and consistent with microcytic Fe-def anemia and reactive leukocytosis to infection (and also could be reactive to Fe-def) follow CBC, expect would continue to come down with treating infection and giving IV iron No need for transfusion unless < 7 or hemodynamically unstable (10) FDC (current) use of anticoagulants: Plan: for h/o DVT recurrent INR therapeutic continue coumadin follow INR Plan VTE Prophyalxis - On warfarin Diet - regular Disposition - continued stay med/surg, plan for dc to [facility] likely tomorrow Admission and Anticipated Discharge Date Admission Date: December 28, 2023 Subjective Pt very upset about being pressured into going to rehab, but does not have any family members able or willing to do her home IV antibiotics.She also was seen by PT who recommended rehab as she is felt to not be safe to be home alone with her current level of function. Physical Exam Constitutional: WD/WN, vitals as above Respiratory: normal respiratory effort, lungs clear to auscultation Cardiovascular: Rate/Rhythm: regular rate and regular rhythm Heart Sounds: + murmur (3/6 KAREN at RUSB) Gastrointestinal (Abdomen): normal bowel sounds, soft, nontender, no hepatosplenomegaly Psychiatric: Orientation: alert and oriented x 3 Affect: + tearful affect Mood: + depressed mood Results & Data Results & Data Vital Signs (Past 12 Hours) Vital Signs Temp Pulse Resp BP Pulse Ox O2 Del Method 12/30/23 08:01 36.8 C 88 18 117/73 96 Room Air Laboratory Results CBC, BMP, INR reviewed PG Care Time/CCT Total # of Minutes Spent Total Time Spent with Patient: Total time spent is greater than 50% in coordination of care (as documented) at patient's floor/unit and/or counseling patient: Coding Level of Care Code 76089 SUB INP/OBS CARE 2/35MIN Diagnoses UTI (urinary tract infection) N39.0 Anemia D64.9 Severe aortic stenosis I35.0 HTN (hypertension) I10 Hypothyroidism E03.9 GERD (gastroesophageal reflux disease) K21.9 Rheumatoid arthritis M06.9 Depression with anxiety F41.8 Leukocytosis D72.829 terminal clerk (current) use of anticoagulants Z79.01
[2023-12-30] MEDS: ACETAMINOPHEN 500 MG TAB PO PRN (18:40)
--- NOTE | 2023-12-31 05:58 | Electrocardiogram Report ---
Test Reason : Blood Pressure : / mmHG Vent. Rate : 079 BPM Atrial Rate : 079 BPM P-R Int : 136 ms QRS Dur : 082 ms QT Int : 374 ms P-R-T Axes : 060 -47 080 degrees QTc Int : 428 ms Normal sinus rhythm Possible Left atrial enlargement Left anterior fascicular block Left ventricular hypertrophy with repolarization abnormality Abnormal ECG When compared with ECG of 04-FEB-2023 14:15, No significant change was found Confirmed by Ruddy Agosto ([id number]) on 12/31/2023 5:58:36 AM Referred By: REFERRED SELF Confirmed By:Ruddy Agosto
[2023-12-31 07:17] LABS: Basophils # (auto) 0.19 K/uL (0.00-0.20); Basophils % (auto) 1.1 %; Eosinophils % (auto) 6.3 %; Hematocrit (blood only) 25.9 % (37.0-47.0); Immature Granulocytes # (auto) 0.32 K/uL (0.01-0.20); Immature Granulocytes % (auto) 1.8 %; Lymphocytes # (auto) 1.37 K/uL (1.20-3.40); Lymphocytes % (auto) 7.9 %; Mean Corpuscular Hemoglobin 24.2 pg (25.0-34.0); Mean Corpuscular Hgb Conc 30.9 g/dL (32.0-36.0); Mean Corpuscular Volume 78.5 fL (80.0-100.0); Mean Platelet Volume 11.5 fL (9.4-12.4); Monocytes # (auto) 1.52 K/uL (0.11-0.59); Monocytes % (auto) 8.8 %; Neutrophils # (auto) 12.85 K/uL (1.40-6.50); Neutrophils % (auto) 74.1 %; Platelet Count 283 K/uL (130-400); RDW Coefficient of Variation 17.4 % (11.5-14.5); RDW Standard Deviation 49.5 fL (36.4-46.3); White Blood Count 17.35 K/ul (4.8-10.8)
[2023-12-31 07:38] LABS: BUN Creatinine Ratio 28.8 (10-20); Calcium 9.1 mg/dl (8.6-10.3); Creatinine Clr Calc Pharmacy 52.5 ml/min; Est GFR (Non-African American) 71.6 ml/min; Magnesium 1.8 mg/dl (1.7-2.4); Potassium 3.8 mmol/L (3.5-5.1)
[2023-12-31 07:44] LABS: INR 2.2 (0.9-1.1)
[2023-12-31] MEDS: ERTAPENEM SODIUM 1,000 MG in SYRINGE 0 ML IV SCH (09:47)
[2023-12-31] MEDS: IRON SUCROSE 300 MG in SODIUM CHLORIDE 0.9% 250 ML IV ONE (09:47)
--- NOTE | 2023-12-31 15:48 | Hospitalist Progress Note ---
Date of Service December 31, 2023 Assessment & Plan (1) UTI (urinary tract infection): Plan: P/w dysuria and weakness-now completely resolved Ur cx mixed organisms so treat empirically--> Previous resistant organisms including ESBL E. coli and Pseudomonas, Klebsiella, Proteus but with + nitrite, would not have Pseudomonas Received meropenem but leukocytosis worsening and with eosinophilia, no rash--> change to IV ertapenem and finish out 7 day course on 01/03/24 Follow blood cultures-remain NGTD Asymptomatic now, feeling well (2) Anemia: Plan: Microcytic, chronic but progressively worsening, with Hgb 9.5 in Feb, 9.0 on admission, 8.5, and then 7.8--> no bleeding noted here from anywhere on nursing assessments but had vaginal bleeding x 1 a couple week sago as per daughter when INR elevated Fe studies show Fe deficiency with transferrin sat only 7, ferritin low normal at 35, B12, folate, and TSH from Feb normal Has never had colonoscopy but denies any GIB CT a/p 2020 showed thickened endometrium but pt declined to have further PRODUCT MANAGER workup Start IV Venofer daily x 3 doses as pt has long standing issues with constipation and po Fe may worsen that Follow CBC and monitor for bleeding outpt workup if desired to include PRODUCT MANAGER and GI follow up (3) Severe aortic stenosis: Plan: No symptoms per patient (4) HTN (hypertension): Plan: Hold olmesartan due to low BP and may not need to reusme due to low normal BPs (5) Hypothyroidism: Plan: TSH 0.539 in Feb Continue levothyroxine (6) GERD (gastroesophageal reflux disease): Plan: continue PPI (7) Rheumatoid arthritis: Plan: Continue Plaquenil and prednisone, Celebrex Continue chronic opiates with OxyContin 20mg PO daily with Percocet for breakthrough pain (she takes this regularly in addition at home) (8) Depression with anxiety: Plan: Continue sertraline exacerbated now by appropriate grief from loss of her and having to go to rehab supportive listening provided (9) Leukocytosis: Plan: WBC count always elevated for several years, neutrophilia-perhaps only checked when ill? WBC count 15 on admission, then down to 13, now up to 17 with neutrophilia as well as eosinophilia On chronic prednisone and did not receive stress dosed steroids could be reactive to Fe def anemia? Vs allergic reaction to meropenem? peripheral smear ordered and consistent with microcytic Fe-def anemia and reactive leukocytosis to infection (and also could be reactive to Fe-def) follow CBC, expect WBC would come down with treating infection and giving IV iron Change abx to ertapenem as above Check CBC in 1 week after discharge (10) halfway (current) use of anticoagulants: Plan: for h/o DVT recurrent INR therapeutic continue coumadin follow INR Plan VTE Prophyalxis - On warfarin Diet - regular Disposition - continued stay med/surg, plan for dc to [facility] cancelled today as no bed available-plan for discharge tomorrow discussed care with daughter at bedside Admission and Anticipated Discharge Date Admission Date: December 28, 2023 Subjective Pt has no complaints, anxious for discharge. Physical Exam Constitutional: WD/WN, vitals as above Respiratory: normal respiratory effort, lungs clear to auscultation Cardiovascular: Rate/Rhythm: regular rate and regular rhythm Heart Sounds: + murmur (3/6 KAREN at RUSB) Gastrointestinal (Abdomen): normal bowel sounds, soft, nontender, no hepatosplenomegaly Inspection/Auscultation: + abdomen abnormal to inspection (large midline scar, no drainge or erythema) Psychiatric: A+Ox3, euthymic affect Results & Data Results & Data Vital Signs (Past 12 Hours) Vital Signs Temp Pulse Resp BP BP Pulse Ox O2 Del Method 12/31/23 11:46 36.5 C 98 H 16 101/67 93 Room Air 12/31/23 09:45 36.5 C 106 H 18 111/68 96 Room Air 12/31/23 07:55 36.8 C 90 16 99/57 L 94 Room Air 12/31/23 07:24 37.5 C 91 H 18 148/65 H 92 Room Air Laboratory Results CBC, BMP, blood cxs, magnesium reviewed PG Care Time/CCT Total # of Minutes Spent Total Time Spent with Patient: Total time spent is greater than 50% in coordination of care (as documented) at patient's floor/unit and/or counseling patient: Coding Level of Care Code 57218 SUB INP/OBS CARE 235MIN Diagnoses UTI (urinary tract infection) N39.0 Anemia D64.9 Severe aortic stenosis I35.0 HTN (hypertension) I10 Hypothyroidism E03.9 GERD (gastroesophageal reflux disease) K21.9 Rheumatoid arthritis M06.9 Depression with anxiety F41.8 Leukocytosis D72.829 halfway (current) use of anticoagulants Z79.01
[2024-01-01 07:18] LABS: Basophils # (auto) 0.17 K/uL (0.00-0.20); Eosinophils # (auto) 1.26 K/uL (0.00-0.50); Eosinophils % (auto) 7.2 %; Hemoglobin 8.1 g/dl (12.0-16.0); Immature Granulocytes # (auto) 0.44 K/uL (0.01-0.20); Immature Granulocytes % (auto) 2.5 %; Lymphocytes % (auto) 7.4 %; Mean Corpuscular Hemoglobin 24.4 pg (25.0-34.0); Mean Corpuscular Hgb Conc 31.2 g/dL (32.0-36.0); Mean Corpuscular Volume 78.3 fL (80.0-100.0); Mean Platelet Volume 11.7 fL (9.4-12.4); Monocytes # (auto) 1.37 K/uL (0.11-0.59); Monocytes % (auto) 7.8 %; Neutrophils # (auto) 13.04 K/uL (1.40-6.50); Neutrophils % (auto) 74.1 %; Nucleated RBC # (auto) 0.02 K/uL (0.00-0.12); Nucleated RBC % (auto) 0.1 %; Platelet Count 298 K/uL (130-400); RDW Coefficient of Variation 17.5 % (11.5-14.5); RDW Standard Deviation 49.5 fL (36.4-46.3); Red Blood Count 3.32 M/uL (4.20-5.40); White Blood Count 17.58 K/ul (4.8-10.8)
[2024-01-01 07:40] LABS: BUN Creatinine Ratio 25.8 (10-20); Calcium 8.9 mg/dl (8.6-10.3); Creatinine Clr Calc Pharmacy 63.6 ml/min; Est GFR (African American) 99.5 ml/min; Est GFR (Non-African American) 85.8 ml/min; Potassium 3.6 mmol/L (3.5-5.1)
[2024-01-01] MEDS: IRON SUCROSE 300 MG in SODIUM CHLORIDE 0.9% 250 ML IV SCH (09:07)
--- NOTE | 2024-01-01 10:51 | Discharge Summary ---
Discharge Summary Date of Service January 01, 2024 Notes For Next Care Provider Check CBC, BMP, INR in 3 days If leukocytosis not improving, recommend Hematology referral as outpt Medication Changes From Visit Added ertapenem 1000mg IV qAM x 2 more doses HOLD Macrobid prophylaxis until IV antibiotics completed Stopped olmesartan for low blood pressures Admission HPI Per Admitting Provider Ashley Sharpe is a 78-year-old female who presents to the ER with dysuria and confusion. She reports nearly 2 weeks of dysuria. Her two weeks ago and she has been in grieving therefore she has been ignoring her symptoms. No fever, chills or back pain. She denies any confusion but this was mentioned to the ER staff by a family member. She is orientated x3 in the ER. She denies any fever, chills, back pain. She denies any respiratory or gastrointestinal problems. She reports wanting to get home as soon as possible. Principal Dx & Hospital Course #1 = Principal Diagnosis (1) UTI (urinary tract infection): P/w dysuria and weakness-now completely resolved Ur cx mixed organisms so treat empirically--> Previous resistant organisms including ESBL E. coli and Pseudomonas, Klebsiella, Proteus but with + nitrite, would not have Pseudomonas Received meropenem but leukocytosis worsening and with eosinophilia, no rash--> changed to IV ertapenem and finish out 7 day course on 01/03/24 Follow blood cultures-remain NGTD Asymptomatic now, feeling well Resume chronic Macrobid prophylaxis after IV abx completed (2) Anemia: Microcytic, chronic but progressively worsening, with Hgb 9.5 in Feb, 9.0 on admission, 8.5, and then 7.8--> no bleeding noted here from anywhere on nursing assessments but had vaginal bleeding x 1 a couple weeks ago as per daughter when INR elevated Fe studies show Fe deficiency with transferrin sat only 7, ferritin low normal at 35, B12, folate, and TSH from Feb normal Has never had colonoscopy but denies any GIB CT a/p 2020 showed thickened endometrium but pt declined to have further DIRECTOR OF DISTRIBUTION workup Gave IV Venofer 300mg daily x 3 doses as pt has long standing issues with constipation and po Fe may worsen that Follow CBC in3 days and monitor for bleeding outpt workup if desired to include DIRECTOR OF DISTRIBUTION and GI follow up (3) Severe aortic stenosis: No symptoms per patient (4) HTN (hypertension): discontinued olmesartan due to low normal BP follow BPs as outpt (5) Hypothyroidism: TSH 0.539 in Feb Continue levothyroxine (6) GERD (gastroesophageal reflux disease): continue PPI (7) Rheumatoid arthritis: Continue Plaquenil and prednisone, Celebrex Continue chronic opiates with OxyContin 20mg PO daily with Percocet for breakthrough pain (she takes this regularly in addition at home) Continue gabapentin (8) Depression with anxiety: Continue sertraline, Xanax prn exacerbated now by appropriate grief from loss of her and having to go to rehab supportive listening provided (9) Leukocytosis: WBC count always elevated for several years, neutrophilia-perhaps only checked when ill? WBC count 15 on admission, then down to 13, now up to 17 and stable with neutrophilia as well as eosinophilia On chronic prednisone and did not receive stress dosed steroids could be reactive to Fe def anemia? Vs allergic reaction to meropenem? 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: for h/o DVT recurrent INR therapeutic continue coumadin follow INR at rehab Plan VTE Prophyalxis - On warfarin Diet - regular Disposition - dc to [facility] today Discharge Exam Constitutional WD/WN, vitals as above Respiratory normal respiratory effort, lungs clear to auscultation Cardiovascular Rate/Rhythm: regular rate and regular rhythm Heart Sounds: + murmur (3/6 KAREN at RUSB) Gastrointestinal (Abdomen) normal bowel sounds, soft, nontender, no hepatosplenomegaly Psychiatric A+Ox3, euthymic affect Updated Medication List Medication Instructions Recorded Confirmed Type acetaminophen 500 mg capsule 500 mg PO DAILY PRN pain 07/11/19 12/28/23 History calcium carbonate 600 mg-vitamin 2 cap PO BID #0 caps 10/16/19 12/28/23 History D3 5 mcg (200 unit) capsule (Calcium 600 + D(3)) multivitamin 1 tab PO QAM 08/18/21 12/28/23 History ascorbic acid (vitamin C) 1,000 mg 1 g PO QAM 12/01/21 12/28/23 History tablet prednisone 5 mg tablet 10 mg PO QAM 01/16/22 12/28/23 History vitamin B complex (B 1 tab PO QAM 12/08/22 12/28/23 History Complex-Vitamin B12 tablet) celecoxib 200 mg capsule 200 mg PO QAM #90 caps 02/05/23 12/28/23 Rx nitrofurantoin macrocrystal 100 mg 100 mg PO QAM 02/10/23 12/28/23 History capsule (Macrodantin) rabeprazole 20 mg tablet,delayed 20 mg PO BID #180 tabs 04/12/23 12/28/23 Rx release (AcipHex) hydroxychloroquine 200 mg tablet 200 mg PO QAM #180 tabs 06/24/23 12/28/23 Rx levothyroxine 125 mcg tablet 125 mcg PO QAM #90 tabs 07/21/23 12/28/23 Rx (Synthroid) olmesartan 5 mg tablet 5 mg PO QAM #90 tabs 08/27/23 12/28/23 Rx acetic acid 2 % ear solution 5 drp otic (ear) TID 5 days #15 mL 09/10/23 12/28/23 Rx ketoconazole 2 % topical cream 1 applic topical BID #60 grams 09/10/23 12/28/23 Rx gabapentin 300 mg capsule 300 mg PO BID #180 caps 11/15/23 12/28/23 Rx pravastatin 10 mg tablet 10 mg PO QDL #90 tabs 11/15/23 12/28/23 Rx naloxone 4 mg/actuation nasal 4 mg intranasal Q3M PRN opioid 11/24/23 12/28/23 Rx spray (Narcan) overdose #2 ea oxycodone 20 mg tablet,crush 20 mg PO QAM #30 tabs 11/24/23 12/28/23 Rx resistant,extended release 12 hr (OxyContin) oxycodone-acetaminophen 5 mg-325 1 tab PO TID #90 tabs 11/24/23 12/28/23 Rx mg tablet (Percocet) diclofenac sodium 1 % topical gel 4 g topical TID PRN Pain #100 grams 11/29/23 12/28/23 Rx warfarin 2 mg tablet 2 mg PO HS 12/20/23 12/28/23 History alprazolam 0.25 mg tablet (Xanax) 0.25 - 0.5 mg PO DAILY PRN anxiety 12/28/23 12/28/23 History sertraline 100 mg tablet See Rx Instructions .Route .COMPLEX 12/28/23 12/28/23 History sertraline 50 mg tablet See Rx Instructions .Route .COMPLEX 12/28/23 12/28/23 History zolpidem 10 mg tablet (Ambien) 10 mg PO HS PRN Sleep 12/28/23 12/28/23 History ertapenem 1 gram solution for 1 g IV DAILY #2 ea 01/01/24 Rx injection Hospital Stay Data Consultations 12/28/23 19:01 ED Decision to Admit Stat Pending Results Patient Have Any Pending Studies at Discharge: Yes (Blood cultures-no growth to date) Discharge Instructions Given to Patient (Per Discharging Provider) Please finish out 2 more days of the antibiotic called ertapenem-last dose will be on the AM of 01/03/24. You should have a CBC, BMP, and INR drawn in 3 days to follow your white blood cell count of hemoglobin, as well as your kidney function. For your anemia, you received IV iron infusions. Please follow up with your PCP to discuss further workup of why you are iron deficient to include evaluation for your recent vaginal bleeding. It was a pleasure taking care of you and I will keep you in my thoughts and prayers, Dr. Vanessa Levy Total Time Total Time Spent Total Time Spent (In Minutes): 35 min Coding Level of Care Code 18394 INP/OBS DISCH >30 MIN Diagnoses UTI (urinary tract infection) N39.0 Anemia D64.9 Severe aortic stenosis I35.0 HTN (hypertension) I10 Hypothyroidism E03.9 GERD (gastroesophageal reflux disease) K21.9 Rheumatoid arthritis M06.9 Depression with anxiety F41.8 Leukocytosis D72.829 terminal make up operator (current) use of anticoagulants Z79.01
== END 2024-01-01 12:35 | DRG 690 ==
LOC: ED 15:55 → SUATTDRO 19:39 → 3N 19:39 → 3W 20:53

== ENCOUNTER 2024-02-02 13:03 | Inpatient (IN) ==
--- NOTE | 2024-02-02 13:23 | Emergency Department Note ---
Impression & Plan Hypoxia, Anemia, Confusion, Pedal edema, Elevated troponin ED Provider Note NAME: ERICK LOZANO AGE: 78 SEX: F : 1945 ARRIVES VIA: Walk-In INFORMANT: [Patient][family] ED PROVIDER(S): [Damon Potter MD] CHIEF COMPLAINT: Urinary symptoms, confusion HISTORY OF PRESENT ILLNESS: The patient is a 78-year-old female with a history of UTI causing confusion. She presents with family for 5 days of confusion and the possibility of new UTI. No fever or shortness of breath. No vomiting or abdominal pain. The family has noticed increasing pedal edema bilaterally. Of note, the patient is on warfarin. The patient has fallen a few times, the family does not believe she struck her head. Of note, the patient is a poor historian. Her daughter was the primary historian during the interview. PMHx/PSHx/Social Hx: See Below PHYSICAL EXAM: GENERAL: Patient is in no acute distress. HEENT: No acute trauma, normocephalic atraumatic, mucous membranes moist, no nasal congestion. NECK: No stridor, no adenopathy, no meningismus, trachea is midline. LUNGS: Clear to auscultation bilaterally, no wheeze, no rhonchi, breath sounds equal. HEART: 3/6 systolic murmur, regular rate and rhythm. ABDOMEN: Soft, nontender, no peritonitis. EXTREMITIES: No cyanosis. There is mild to moderate bilateral pedal edema. There are some older contusions to all extremities, some chronic skin changes are seen. No erythema to suggest cellulitis. NEUROLOGIC: Awake and alert, no acute motor or sensory deficits, no focal weakness. SKIN: No jaundice, no diaphoresis. DIFFERENTIAL DIAGNOSIS: Intracranial bleeding, UTI, dehydration, electrolyte imbalance, anemia, among others. EMERGENCY DEPARTMENT PROCEDURES: MEDICAL DECISION MAKING: There is a mild leukocytosis, this appears chronic looking back at previous testing. The patient was anemic with a hemoglobin of 10.5, she has a history of chronic anemia. There was a normal platelet count. INR was elevated at 3.1, consistent with her warfarin use. There was no renal failure or significant electrolyte abnormality. No concerning liver enzyme elevation. TSH was elevated however, the T4 was normal. Urinalysis did not show findings of infection. Chest x-ray shows cardiomegaly and bilateral pleural effusions. On exam, the patient did have some pedal edema. She did develop some hypoxia while here in the ER and required O2 supplementation. ECG showed a sinus rhythm, no obvious acute ischemia. Cardiac enzyme testing x 1 was elevated. This troponin elevation could be secondary to cardiac injury or potentially mismatch from her hypoxia. The patient initially received a 500 cc bolus upon arrival. With the findings of fluid overload, she was given a 40 mg dose of IV Lasix. An external urinary catheter was placed. Given the hypoxia, her pedal edema, her worsening chest x-ray findings, her confusion, I do think a hospital stay/further workup would be warranted. I spoke with the patient and family, I spoke with case management. The on-call hospitalist was consulted. Prior/Outside records/notes reviewed: Discharge note from 01/01/2024 discussing her presentation for confusion as well as a UTI. ECG per my interpretation: Indication was confusion. The ECG shows a sinus rhythm with some PACs. The rate is 98. There was LVH present. No acute ST elevation, no PVCs. The QTc was 435. Continuous Cardiac Monitoring per my interpretation: An order was placed for continuous cardiac monitoring. The monitor shows a rate of 91 with normal sinus rhythm. Imaging/x-ray results per my interpretation: Chest x-ray does show cardiomegaly and bilateral pleural effusions which appear worse than previous x- rays. There was no obvious pneumonia. Chronic Medical/Social conditions affecting care: Advanced age. Care/Management discussed with: Case management, the on-call hospitalist. Level of care consideration(s): After review of the information above and other included data: --I believe the patient requires escalation of care to admission DISPOSITION: Admission Past Med/Surg History Problem List (Updated 02/02/24 @ 15:46 by Damon Potter MD) Elevated troponin (Acute) Pedal edema (Acute) Confusion (Acute) Anemia (Acute) Hypoxia (Acute) Pessary maintenance Fall (Acute) Iron deficiency anemia UTI (urinary tract infection) Leukocytosis (Acute) Gait instability RSV (respiratory syncytial virus infection) Elderly person living alone of Malodorous urine Erythema intertrigo Peripheral neuropathy Severe aortic stenosis HTN (hypertension) (Chronic) Hypothyroidism (Chronic) GERD (gastroesophageal reflux disease) (Chronic) Rheumatoid arthritis (Chronic) Follows with [facility] (Gosia Mckeon PAC/Opperman) Vitamin D deficiency (Chronic) Herpes simplex type 1 infection (Chronic) Depression with anxiety (Chronic) Dysuria (Acute) Insomnia (Chronic) Prolapse of female pelvic organs Pessary in place Sore throat (Chronic) Right thigh pain (Chronic) Burning with urination Arthralgia of multiple joints (Chronic) Urinary urgency (Acute) Sore mouth (Chronic) Gastritis Ulcer of toe Burning tongue Chronic pain (Chronic) Serenity infection (Acute) Moderate aortic stenosis by prior echocardiogram Mucositis Osteopenia Postmenopausal Frequent UTI on chronic macrobid suppression Severe left ventricular hypertrophy Anxiety Anemia residential (current) use of anticoagulants (Chronic) PAD (peripheral artery disease) Osteoarthritis Antiphospholipid antibody syndrome (Chronic) Medical History (Updated 02/02/24 @ 15:46 by Damon Potter MD) Pulmonary hypertension PASP 30-40mmHg 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 was treated with Dalvance 3 weeks ago for healing of her toe. Stress incontinence in female History of DVT (deep vein thrombosis) HX MULTIPLE BLOOD CLOTS INCLUDING IN AORTA PER PT - last blood clot 8+ years ago, currently on coumadin Surgical History S/P foot surgery, left [facility] [place] Dr Izquierdo (2021) History of embolectomy (1996) aortic thrombus secondary to APLS History of esophagogastroduodenoscopy (EGD) Hx of tonsillectomy H/O foot surgery History of surgical procedure on eye proper using laser History of ligation of vein History of hernia repair History of ventral hernia repair History of cataract surgery R&L History of appendectomy Family History Mother Hypertension Daughter Systemic lupus erythematosus Antiphospholipid antibody syndrome Father No problems noted. 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: No Beliefs That Will Affect Care: None marital status: Current Living Situation: Alone Current Living Situation Comment: family lives nearby per pt current occupational status: retired How many Children do You have: 2 Feels Safe at Home: Yes caffeine: Yes Dental Care, Regularly: Yes Seatbelt Use: sometimes Sunscreen Use: Yes Assistive Devices: Walker Allergies Allergies Allergy/AdvReac Type Severity Reaction Status Date / Time amoxicillin [From Augmentin] Allergy Intermediate Hives Verified 01/28/24 12:43 bacitracin Allergy Intermediate hives Verified 01/28/24 12:43 clavulanic acid Allergy Intermediate Hives Verified 01/28/24 12:43 [From Augmentin] latex Allergy Intermediate localized Verified 01/28/24 12:43 swelling sulfamethoxazole Allergy Intermediate hives Verified 01/28/24 12:43 trimethoprim Allergy Intermediate hives Verified 01/28/24 12:43 menthol [From Calmoseptine] Allergy Mild redness/hiv Verified 01/28/24 12:43 es mineral oil [From Aquaphor] Allergy Mild redness/hiv Verified 01/28/24 12:43 es petrolatum,hydrophilic Allergy Mild redness/hiv Verified 01/28/24 12:43 [From Aquaphor] es zinc oxide Allergy Mild redness/hiv Verified 01/28/24 12:43 [From Calmoseptine] es tetracycline Allergy Unknown Unknown Verified 01/28/24 12:43 Home Meds Home Medications Medication Instructions Recorded Confirmed acetaminophen 500 mg capsule 500 mg PO DAILY PRN pain 07/11/19 01/28/24 calcium carbonate 600 mg-vitamin 2 cap PO BID #0 caps 10/16/19 01/28/24 D3 5 mcg (200 unit) capsule (Calcium 600 + D(3)) multivitamin 1 tab PO QAM 08/18/21 01/28/24 zolpidem 10 mg tablet (Ambien) 10 mg PO HS Sleep 01/19/24 01/28/24 warfarin 3 mg tablet See Rx Instructions PO .COMPLEX 01/27/24 01/28/24 Previous Rx's Medication Instructions Recorded diclofenac sodium 1 % topical gel 4 g topical TID PRN Pain #100 grams 11/29/23 alprazolam 0.25 mg tablet (Xanax) 0.125 mg (1/2 x 0.25 mg) PO QAM 01/19/24 anxiety #90 tabs ascorbic acid (vitamin C) 1,000 mg 1 g PO DAILY 90 days #90 caps 01/19/24 capsule ferrous sulfate 325 mg (65 mg 325 mg PO DAILY 90 days #90 tabs 01/19/24 iron) tablet gabapentin 300 mg capsule 300 mg PO BID #180 caps 01/19/24 hydroxychloroquine 200 mg tablet 200 mg PO QAM #180 tabs 01/19/24 levothyroxine 125 mcg tablet 125 mcg PO QAM #90 tabs 01/19/24 (Synthroid) naloxone 4 mg/actuation nasal 4 mg intranasal Q3M PRN opioid 01/19/24 spray (Narcan) overdose #2 ea nitrofurantoin macrocrystal 100 mg 100 mg PO QAM #90 caps 01/19/24 capsule (Macrodantin) oxycodone 20 mg tablet,crush 20 mg PO QAM #30 tabs 01/19/24 resistant,extended release 12 hr (OxyContin) oxycodone-acetaminophen 5 mg-325 1 tab PO TID #90 tabs 01/19/24 mg tablet (Percocet) pravastatin 10 mg tablet 10 mg PO QDL #90 tabs 01/19/24 prednisone 10 mg tablet 10 mg PO DAILY #90 tabs 01/19/24 rabeprazole 20 mg tablet,delayed 20 mg PO BID #180 tabs 01/19/24 release (AcipHex) sertraline 100 mg tablet 200 mg (2 x 100 mg) PO DAILY 90 01/19/24 days #180 tabs Results & Data (ED) Vital Signs Vital Signs - 24 hr 02/02/24 13:04 02/02/24 13:30 02/02/24 13:42 Temperature 36.5 C Temperature Source Temporal Artery Scan Pulse Rate 91 H Pulse Rate [Apical] 87 Pulse Rate from SpO2 Sensor Respiratory Rate 20 20 Respiratory Effort / Characteristics Non-Labored Spontaneous Non-Labored Respiratory Depth Normal Normal Blood Pressure 102/63 Blood Pressure [Right Arm] 122/72 Blood Pressure Mean 76 Blood Pressure Mean [Right Arm] 88 Pulse Oximetry 94 85 L 98 Oxygen Delivery Method Room Air Room Air Room Air Sepsis Recent Fever Within 48 Hours No Sepsis New/Unexplained Change in Mental Status N/A Sepsis Action Taken by Nursing No Action Required 02/02/24 13:42 02/02/24 14:24 02/02/24 15:00 Temperature Temperature Source Pulse Rate 85 Pulse Rate [Apical] Pulse Rate from SpO2 Sensor Respiratory Rate Respiratory Effort / Characteristics Respiratory Depth Blood Pressure 116/84 Blood Pressure [Right Arm] Blood Pressure Mean 86 Blood Pressure Mean [Right Arm] Pulse Oximetry 98 Oxygen Delivery Method Room Air Sepsis Recent Fever Within 48 Hours Sepsis New/Unexplained Change in Mental Status Sepsis Action Taken by Nursing 02/02/24 15:00 02/02/24 15:30 02/02/24 15:30 Temperature Temperature Source Pulse Rate 82 81 Pulse Rate [Apical] Pulse Rate from SpO2 Sensor 82 81 Respiratory Rate 16 14 Respiratory Effort / Characteristics Respiratory Depth Blood Pressure 139/68 Blood Pressure [Right Arm] Blood Pressure Mean 91 Blood Pressure Mean [Right Arm] Pulse Oximetry 100 100 Oxygen Delivery Method Room Air Sepsis Recent Fever Within 48 Hours Sepsis New/Unexplained Change in Mental Status Sepsis Action Taken by Nursing Laboratory Data 02/02/24 13:38 02/02/24 13:38 Lab Results 02/02/24 02/02/24 Range/Units 13:30 13:38 WBC 12.88 H (4.8-10.8) K/ul RBC 4.13 L (4.20-5.40) M/uL Hgb 10.5 L (12.0-16.0) g/dl Hct 34.9 L (37.0-47.0) % MCV 84.5 (80.0-100.0) fL MCH 25.4 (25.0-34.0) pg MCHC 30.1 L (32.0-36.0) g/dL RDW Std Deviation 62.5 H (36.4-46.3) fL RDW Coeff of Fernando 20.4 H (11.5-14.5) % Plt Count 157 (130-400) K/uL MPV 11.9 (9.4-12.4) fL Immature Gran % (Auto) 0.7 % Neut % (Auto) 92.5 % Lymph % (Auto) 2.4 % [place] % (Auto) 3.6 % Eos % (Auto) 0.3 % Baso % (Auto) 0.5 % Neut # (Auto) 11.91 H (1.40-6.50) K/uL Lymph # (Auto) 0.31 L (1.20-3.40) K/uL [place] # (Auto) 0.47 (0.11-0.59) K/uL Eos # (Auto) 0.04 (0.00-0.50) K/uL Baso # (Auto) 0.06 (0.00-0.20) K/uL Immature Gran # (Auto) 0.09 (0.01-0.20) K/uL Anisocytosis Present PT 30.8 H (9.0-12.0) Seconds INR 3.1 H (0.9-1.1) APTT 42 H (21-31) Seconds PTT Ratio 1.6 Sodium 137 (136-145) mmol/L Potassium 4.4 (3.5-5.1) mmol/L Chloride 103 (98-107) mmol/L Carbon Dioxide 28 (21-32) mmol/L Anion Gap 6 (3-11) BUN 27 H (6-23) mg/dl Creatinine 0.90 (0.6-1.2) mg/dl Est Cr Clr Drug Dosing Not Reportable Est GFR ( Amer) 72.0 ml/min Est GFR (Non-Af Amer) 62.1 ml/min BUN/Creatinine Ratio 30.0 H (10-20) Glucose 155 H (70-99(Fasting)) mg/dl Calcium 9.4 (8.6-10.3) mg/dl Magnesium 2.1 (1.7-2.4) mg/dl Total Bilirubin 0.9 (0.2-1.0) mg/dl AST 29 (13-39) U/L ALT 26 (7-52) U/L Alkaline Phosphatase 104 (34-104) U/L Troponin I High Sens 445.6 H* (0-14) pg/ml Total Protein 6.3 (6.0-8.3) gm/dl Albumin 3.6 (3.4-5.0) gm/dl Globulin 2.7 (2.5-4.0) gm/dl Albumin/Globulin Ratio 1.3 (0.9-2) TSH 6.345 H (0.300-4.500) uIu/ml Free T4 1.27 (0.61-1.60) ng/dl Urine Color Dark Yellow Urine Appearance Cloudy A (Clear) Urine pH 5.0 (4.5-7.5) Ur Specific Peerless 1.023 (1.000-1.030) Urine Protein 1+ H (Negative) Urine Glucose (UA) Negative (Negative) Urine Ketones Trace H (Negative) Urine Blood Negative (Negative) Urine Nitrite Negative (Negative) Urine Bilirubin Negative (Negative) Urine Urobilinogen Negative (Negative) Ur Leukocyte Esterase Trace H (Negative) Urine WBC (Auto) 0-5 (0-5) /hpf Urine RBC (Auto) 0-2 (0-2) /hpf U Hyaline Cast (Auto) >20 H (0-2) /lpf U Epithel Cells (Auto) 0-2 (0-2) /hpf Urine Bacteria (Auto) None Seen (None Seen) Urine Mucus Present A (None Prsent) Administered Medications Discontinued Medications Furosemide (Furosemide 40 Mg/4 Ml Vial) 40 mg IV ONE ONE Stop: 02/02/24 14:45 Last Admin: 02/02/24 15:23 Dose: 40 mg Documented By: ESTHER Sodium Chloride (Nss) 500 mls @ 999 mls/hr IV .Q31M BRIANNA Stop: 02/02/24 13:45 Last Admin: 02/02/24 13:58 Dose: 999 mls/hr Documented By: AVSheree Imaging Data Radiologist's Impression: Chest X-Ray 02/02/24 13:10 XR chest 1V portable HISTORY: 78 years-old Female weakness COMPARISON: 12/28/2023 TECHNIQUE: AP view the chest FINDINGS: Cardiac silhouette is enlarged. Small pleural effusions with left basilar predominant consolidation. No pneumothorax. Pulmonary vascular congestion. Degenerative changes of the shoulders and spine. IMPRESSION: 1. Cardiomegaly with pulmonary vascular congestion. 2. Small pleural effusions with left basilar predominant consolidation which may represent atelectasis versus pneumonia. ACT 112: Negative or not required by law. The above report was generated using voice recognition software. It may contain grammatical, syntax or spelling errors. Electronically signed by: Med Padilla M.D. 02/02/2024 2:[address] 02/02/24 13:11 CT SCAN OF THE BRAIN WITHOUT IV CONTRAST CLINICAL HISTORY: Change in mental status. COMPARISON STUDY: CT of the brain dated 12/14/2017. TECHNIQUE: Unenhanced axial CT scan of the brain is performed from the vertex to the skull base. A dose lowering technique was utilized adhering to the principles of ALARA. CT DOSE: 625.8 mGy.cm FINDINGS: Brain parenchyma: There is age-related involutional change noting moderate to advanced confluent subcortical and periventricular microangiopathic disease. A focus of right parietal encephalomalacia is consistent with a remote insult. There is no hemorrhage, mass effect, or evidence of acute territorial ischemia by CT criteria. Lloyd-white matter differentiation is preserved. No extra-axial fluid collection is seen. Ventricles, sulci, cisterns: Prominent secondary to involutional change. Intracranial vasculature: There is atherosclerotic calcification of the cavernous carotid and vertebral arteries. Calvarium: Unremarkable. Sinuses and mastoids: The visualized paranasal sinuses are clear. The mastoid air cells are well pneumatized. Orbits: The bony orbits are grossly intact. There are bilateral ocular lens implants. IMPRESSION: There is no hemorrhage, mass effect, or evidence of acute territorial ischemia by CT criteria. ACT 112: Negative or not required by law. Electronically signed by: Damon Cardona M.D. 02/02/2024 1:52 PM Discharge Plan Visit Data Chief Complaint: Urinary Symptoms Stated Complaint: URINARY SYMPTOMS ED Provider: Damon Potter Discharge Problem: Hypoxia, Anemia, Confusion, Pedal edema, Elevated troponin Forms Stand Alone Forms: My [facility] [place] Prescriptions Prescriptions: No Action multivitamin Tablet 1 tab PO QAM acetaminophen 500 mg capsule 500 mg PO DAILY PRN (Reason: pain) warfarin 3 mg tablet See Rx Instructions PO .COMPLEX Rx Instructions: 6mg ThFrSuTu, 3mg on SaMoWe daily per [facility] orally; Calcium 600 + D(3) 600 mg calcium- 200 unit capsule 2 cap PO BID Qty: 0 diclofenac sodium 1 % gel 4 g Topical TID PRN (Reason: Pain) Qty: 100 3RF sertraline 100 mg tablet 200 mg PO DAILY 90 Days Qty: 180 3RF ferrous sulfate 325 mg (65 mg iron) tablet 325 mg PO DAILY 90 Days Qty: 90 3RF gabapentin 300 mg capsule 300 mg PO BID Qty: 180 3RF hydroxychloroquine 200 mg tablet 200 mg PO QAM Qty: 180 3RF Hold Instructions: pt will discuss with Dr. Stanford levothyroxine [Synthroid] 125 mcg tablet 125 mcg PO QAM Qty: 90 3RF pravastatin 10 mg tablet 10 mg PO QDL Qty: 90 3RF prednisone 10 mg tablet 10 mg PO DAILY Qty: 90 3RF rabeprazole [AcipHex] 20 mg tablet,delayed release (DR/EC) 20 mg PO BID Qty: 180 3RF alprazolam [Xanax] 0.25 mg tablet 0.125 mg PO QAM Qty: 90 0RF zolpidem [Ambien] 10 mg tablet 10 mg PO HS Rx Instructions: 1 tablet at night, as needed for sleep ascorbic acid (vitamin C) 1,000 mg capsule 1 g PO DAILY 90 Days Qty: 90 3RF Rx Instructions: take with ferrous sulfate nitrofurantoin macrocrystal [Macrodantin] 100 mg capsule 100 mg PO QAM Qty: 90 3RF Rx Instructions: must administer with a meal/food naloxone [Narcan] 4 mg/actuation spray,non-aerosol 4 mg intranasal Q3M PRN (Reason: opioid overdose) Qty: 2 0RF Rx Instructions: spray 1 dose into ONE nostril; alternate nostrils w each dose until help arrives oxycodone [OxyContin] 20 mg tablet,oral only,ext.rel.12 hr 20 mg PO QAM Qty: 30 0RF oxycodone-acetaminophen [Percocet] 5-325 mg tablet 1 tab PO TID Qty: 90 0RF Referrals Referrals: Terry Vaughan DO [Primary Care Provider] - Discharge Problem: Anemia Qualifiers: Anemia type: unspecified type Qualified Code(s): D64.9 - Anemia, unspecified
--- NOTE | 2024-02-02 13:54 | CT Scan Report ---
CT SCAN OF THE BRAIN WITHOUT IV CONTRAST CLINICAL HISTORY: Change in mental status. COMPARISON STUDY: CT of the brain dated 12/14/2017. TECHNIQUE: Unenhanced axial CT scan of the brain is performed from the vertex to the skull base. A do se lowering technique was utilized adhering to the principles of ALARA. CT DOSE: 625.8 mGy.cm FINDINGS: Brain parenchyma: There is age-related involutional change noting moderate to advanced confluent subc ortical and periventricular microangiopathic disease. A focus of right parietal encephalomalacia is c onsistent with a remote insult. There is no hemorrhage, mass effect, or evidence of acute territorial ischemia by CT criteria. Lloyd-white matter differentiation is preserved. No extra-axial fluid collec tion is seen. Ventricles, sulci, cisterns: Prominent secondary to involutional change. Intracranial vasculature: There is atherosclerotic calcification of the cavernous carotid and vertebr al arteries. Calvarium: Unremarkable. Sinuses and mastoids: The visualized paranasal sinuses are clear. The mastoid air cells are well pneu matized. Orbits: The bony orbits are grossly intact. There are bilateral ocular lens implants. IMPRESSION: There is no hemorrhage, mass effect, or evidence of acute territorial ischemia by CT slim gordon. ACT 112: Negative or not required by law. Electronically signed by: Damon Cardona M.D. 02/02/2024 1:52 PM
[2024-02-02] MEDS: SODIUM CHLORIDE 0.9% 500 ML IV SCH (13:58)
[2024-02-02 14:05] LABS: Hematocrit (blood only) 34.9 % (37.0-47.0); Hemoglobin 10.5 g/dl (12.0-16.0); Mean Corpuscular Hemoglobin 25.4 pg (25.0-34.0); Mean Corpuscular Hgb Conc 30.1 g/dL (32.0-36.0); Mean Corpuscular Volume 84.5 fL (80.0-100.0); Mean Platelet Volume 11.9 fL (9.4-12.4); Platelet Count 157 K/uL (130-400); RDW Coefficient of Variation 20.4 % (11.5-14.5); RDW Standard Deviation 62.5 fL (36.4-46.3); Red Blood Count 4.13 M/uL (4.20-5.40); White Blood Count 12.88 K/ul (4.8-10.8)
[2024-02-02 14:09] LABS: Appearance Urine Cloudy (Clear); Bacteria Urine Automated None Seen (None Seen); Bilirubin Urine Negative (Negative); Blood Urine Negative (Negative); Cast Urine Automated >20 /lpf (0-2); Color Urine Dark Yellow; Epithelial Cell Urine Auto 0-2 /hpf (0-2); Glucose Urine UA Negative (Negative); Ketones Urine Trace (Negative); Leukocyte Esterase Urine Trace (Negative); Mucus Urine Present (None Prsent); Nitrite Urine Negative (Negative); Protein Urine 1+ (Negative); RBC Urine Automated 0-2 /hpf (0-2); Specific Gravity Urine 1.023 (1.000-1.030); Urobilinogen Urine Negative (Negative); WBC Urine Automated 0-5 /hpf (0-5)
[2024-02-02 14:24] LABS: Alanine Aminotransferase 26 U/L (7-52); Albumin Globulin Ratio 1.3 (0.9-2); Albumin Level 3.6 gm/dl (3.4-5.0); Alkaline Phosphatase 104 U/L (34-104); Anion Gap 6 (3-11); Aspartate Aminotransferase 29 U/L (13-39); Bilirubin,Total 0.9 mg/dl (0.2-1.0); Blood Urea Nitrogen 27 mg/dl (6-23); Calcium 9.4 mg/dl (8.6-10.3); Carbon Dioxide 28 mmol/L (21-32); Chloride 103 mmol/L (98-107); Est GFR (Non-African American) 62.1 ml/min; Globulin 2.7 gm/dl (2.5-4.0); Glucose 155 mg/dl (70-99(Fasting)); Magnesium 2.1 mg/dl (1.7-2.4); Potassium 4.4 mmol/L (3.5-5.1); Sodium 137 mmol/L (136-145); Total Protein 6.3 gm/dl (6.0-8.3)
[2024-02-02 14:28] LABS: Anisocytosis Present; Basophils # (auto) 0.06 K/uL (0.00-0.20); Basophils % (auto) 0.5 %; Eosinophils # (auto) 0.04 K/uL (0.00-0.50); Eosinophils % (auto) 0.3 %; Immature Granulocytes # (auto) 0.09 K/uL (0.01-0.20); Immature Granulocytes % (auto) 0.7 %; Lymphocytes # (auto) 0.31 K/uL (1.20-3.40); Lymphocytes % (auto) 2.4 %; Monocytes # (auto) 0.47 K/uL (0.11-0.59); Monocytes % (auto) 3.6 %; Neutrophils # (auto) 11.91 K/uL (1.40-6.50); Neutrophils % (auto) 92.5 %
[2024-02-02 14:32] LABS: Troponin I High Sensitivity 445.6 pg/ml (0-14)
[2024-02-02 14:35] LABS: INR 3.1 (0.9-1.1); Partial Thromboplastin Ratio 1.6; Partial Thromboplastin Time 42 Seconds (21-31); Prothrombin Time 30.8 Seconds (9.0-12.0)
[2024-02-02 14:36] LABS: Thyroid Stimulating Hormone 6.345 uIu/ml (0.300-4.500)
--- NOTE | 2024-02-02 14:56 | XRay Report ---
XR chest 1V portable HISTORY: 78 years-old Female weakness COMPARISON: 12/28/2023 TECHNIQUE: AP view the chest FINDINGS: Cardiac silhouette is enlarged. Small pleural effusions with left basilar predominant consolidation. No pneumothorax. Pulmonary vascular congestion. Degenerative changes of the shoulders and spine. IMPRESSION: 1. Cardiomegaly with pulmonary vascular congestion. 2. Small pleural effusions with left basilar predominant consolidation which may represent atelectasi s versus pneumonia. ACT 112: Negative or not required by law. The above report was generated using voice recognition software. It may contain grammatical, syntax o r spelling errors. Electronically signed by: Med Padilla M.D. 02/02/2024 2:55 PM
[2024-02-02 15:12] LABS: T4 Free Thyroxine 1.27 ng/dl (0.61-1.60)
[2024-02-02] MEDS: FUROSEMIDE 40 MG/4 ML VIAL IV ONE (15:23)
--- NOTE | 2024-02-02 15:48 | History & Physical Report ---
Date of Service February 02, 2024 Assessment & Plan (1) Volume overload: Plan: -Admit to med/tele -Currently stable and non-toxic appearing -Presented to the ED from [facility] with multiple complaints -Noted to have BL pitting edema, JVD, and signs of pulmonary vascular congestion on CXR -Patient has a hx of mod-severe aortic stenosis and pulmonary HTN but previous LVEF was hyperdynamic -Renal function is stable, don't not think her volume overload is being caused by her kidneys -With her increased high sen trop and increased weakness I do have concern that she may have had an KS in the recent past >Currently denying chest discomfort at this time -S/P 40 mg IV lasix in the ED, will plan to continue with 20 mg IV BID17 for now as she is not on diuretics outpatient -Will obtain TTE tomorrow -Monitor daily weight -Home Warfarin for DVT PPX -HH diet with 2gm sodium and 1800 mL fluid restriction -AM CBC, CMP, mag, PT/INR (2) Elevated troponin: Plan: -Initial high sen trop of 445 --> 418 on 2 hour repeat -Patient denies chest discomfort -No acute ST segment or T-wave changes on ECG today compared to 12/28/23 -Possibly due to demand from volume overload and infection -Will continue to monitor on tele and trend high sen trop q6h, follow TTE tomorrow -If further concerns will consult Cardiology (3) Swelling of both lower extremities: Plan: -Likely multifactorial including possible CHF/worsening , decreased activity since being admitted to [facility], infection -Patient has skin findings consistent with cellulitis of the RLE -Will obtain venous doppler of the RLE to rule out DVT -Continue BID IV lasix, follow TTE tomorrow, will obtain BNP -Continue treatment for cellulitis (4) Cellulitis of right lower extremity: Plan: -RLE appears consistent with cellulitis -Will start ceftriaxone for now -Follow blood cultures and monitor for improvement (5) Antiphospholipid antibody syndrome: Plan: -Previous DVT's and aortic thrombus -On Warfarin, goal INR range is 2.5-3.5 per the anticoagulation clinic -INR today is 3.1, has not had her dose of Warfarin yet today -Will continue home warfarin with Daily INR (6) Chronic pain of right upper extremity: Plan: -Patient and daughter note patient's RUE has been painful to palpation of the right biceps and tendon -Daughter reports xray of the RUE at [facility] was negative -No pain with active ROM, tender to palpation -No signs of rash/erythema -Will obtain RUE venous doppler to rule out DVT -Continue chronic pain regimen (7) Hypothyroidism: Plan: -Levothyroxine (8) Rheumatoid arthritis involving both hands with negative rheumatoid factor: Plan: -Will continue Prednisone for now -Hold Plaquenil with active infection - Plan The patient was discussed with Dr. Guidry at the time of the admission History of Present Illness Chief Complaint: Increased confusion, LE swelling, concern for UTI Primary Care Provider: Terry Vaughan DO Ramirez is a 78 year old female with a PMH significant for recurrent ESBL UTIs, Severe aortic stenosis, HTN, RA (on Plaquenil, prednisone, and Celebrex), hypothyroidism, depression/anxiety, Antiphospholipid Antibody syndrome, arterial thrombus, previous DVTs (on Warfarin), who presented to the [facility] ED from [facility] due to increased confusion, LE swelling, and concern for recurrent UTI. She was noted to be tachycardic on arrival at but was otherwise stable. Labs were significant for a leukocytosis of 12 with neutrophil predominance of 11, lymphopenia of 0.31, INR of 3.1, initial high sen trop of 445, and UA with cloudy urine, 1+ protein, trace ketones, trace leukocyte esterase, WNC WNL, and negative for bacteria. Chest xray was read as 1. Cardiomegaly with pulmonary vascular congestion. 2. Small pleural effusions with left basilar predominant consolidation which may represent atelectasis versus pneumonia.. CT of the head/brain wo con was read as negative for acute findings. Prior to admission admission the patient was initially given 500 mL NSS and subsequently given 40 mg IV lasix. At the time of the exam the patient was sitting in bed in no acute distress with her daughter bedside, history was obtained from both. starting 01/29/24, the patient and her family have noticed significant BL LE swelling, which is not normal for her. She has had intermittent confusion while at [facility], but her daughter confirms she is back to her normal baseline today. She underwent Iovera procedure 48 hours ago with [facility] for OA of the left knee. Over the past 3-4 days the patient has been generally weak, to the point that she was too weak to get off the bedside commode today. Her daughter has been very unhappy with the care at [facility], they will be looking to discharge the patient to a new facility at the end of this admission. The patient has noted RLE pain over the past week. Her daughter confirms the patient is not on diuretics outpatient. The patient is a full code. Please refer to Dr. Guidry's attestation for any changes to the treatment plan Allergies Allergy/AdvReac Type Severity Reaction Status Date / Time amoxicillin [From Augmentin] Allergy Intermediate Hives Verified 01/28/24 12:43 bacitracin Allergy Intermediate hives Verified 01/28/24 12:43 clavulanic acid Allergy Intermediate Hives Verified 01/28/24 12:43 [From Augmentin] latex Allergy Intermediate localized Verified 01/28/24 12:43 swelling sulfamethoxazole Allergy Intermediate hives Verified 01/28/24 12:43 trimethoprim Allergy Intermediate hives Verified 01/28/24 12:43 menthol [From Calmoseptine] Allergy Mild redness/hiv Verified 01/28/24 12:43 es mineral oil [From Aquaphor] Allergy Mild redness/hiv Verified 01/28/24 12:43 es petrolatum,hydrophilic Allergy Mild redness/hiv Verified 01/28/24 12:43 [From Aquaphor] es zinc oxide Allergy Mild redness/hiv Verified 01/28/24 12:43 [From Calmoseptine] es tetracycline Allergy Unknown Unknown Verified 01/28/24 12:43 Home Medications Medication Instructions Recorded Confirmed Type acetaminophen 500 mg capsule 500 mg PO DAILY PRN pain 07/11/19 02/02/24 History calcium carbonate 600 mg-vitamin 2 cap PO BID #0 caps 10/16/19 02/02/24 History D3 5 mcg (200 unit) capsule (Calcium 600 + D(3)) diclofenac sodium 1 % topical gel 4 g topical TID PRN Pain #100 grams 11/29/23 02/02/24 Rx alprazolam 0.25 mg tablet (Xanax) 0.125 mg (1/2 x 0.25 mg) PO QAM 01/19/24 02/02/24 Rx anxiety #90 tabs ascorbic acid (vitamin C) 1,000 mg 1 g PO DAILY 90 days #90 caps 01/19/24 02/02/24 Rx capsule ferrous sulfate 325 mg (65 mg 325 mg PO DAILY 90 days #90 tabs 01/19/24 02/02/24 Rx iron) tablet hydroxychloroquine 200 mg tablet 200 mg PO QAM #180 tabs 01/19/24 02/02/24 Rx levothyroxine 125 mcg tablet 125 mcg PO QAM #90 tabs 01/19/24 02/02/24 Rx (Synthroid) naloxone 4 mg/actuation nasal 4 mg intranasal Q3M PRN opioid 01/19/24 02/02/24 Rx spray (Narcan) overdose #2 ea nitrofurantoin macrocrystal 100 mg 100 mg PO QAM #90 caps 01/19/24 02/02/24 Rx capsule (Macrodantin) oxycodone 20 mg tablet,crush 20 mg PO QAM #30 tabs 01/19/24 02/02/24 Rx resistant,extended release 12 hr (OxyContin) oxycodone-acetaminophen 5 mg-325 1 tab PO TID #90 tabs 01/19/24 02/02/24 Rx mg tablet (Percocet) pravastatin 10 mg tablet 10 mg PO QDL #90 tabs 01/19/24 02/02/24 Rx prednisone 10 mg tablet 10 mg PO DAILY #90 tabs 01/19/24 02/02/24 Rx rabeprazole 20 mg tablet,delayed 20 mg PO BID #180 tabs 01/19/24 02/02/24 Rx release (AcipHex) sertraline 100 mg tablet 200 mg (2 x 100 mg) PO DAILY 90 01/19/24 02/02/24 Rx days #180 tabs zolpidem 10 mg tablet (Ambien) 10 mg PO HS PRN Sleep 01/19/24 02/02/24 History warfarin 3 mg tablet See Rx Instructions PO .COMPLEX 01/27/24 02/02/24 History celecoxib 200 mg capsule 200 mg PO DAILY 02/02/24 02/02/24 History gabapentin 300 mg capsule 300 mg PO Q12 02/02/24 02/02/24 History multivitamin (Daily-Maritza tablet) 1 tab PO DAILY 02/02/24 02/02/24 History Past Med/Surg History Problem List (Updated 02/03/24 @ 11:35 by Kaushal Loera MD) PSVT (paroxysmal supraventricular tachycardia) Volume overload Chronic pain of right upper extremity Cellulitis of right lower extremity Swelling of both lower extremities Elevated troponin (Acute) Pedal edema (Acute) Confusion (Acute) Anemia (Acute) Hypoxia (Acute) Pessary maintenance Fall (Acute) Iron deficiency anemia UTI (urinary tract infection) Leukocytosis (Acute) Gait instability RSV (respiratory syncytial virus infection) Elderly person living alone of Malodorous urine Erythema intertrigo Peripheral neuropathy Severe aortic stenosis HTN (hypertension) (Chronic) Hypothyroidism (Chronic) GERD (gastroesophageal reflux disease) (Chronic) Rheumatoid arthritis (Chronic) Follows with [facility] ([facility]/Hien) Vitamin D deficiency (Chronic) Herpes simplex type 1 infection (Chronic) Depression with anxiety (Chronic) Dysuria (Acute) Insomnia (Chronic) Prolapse of female pelvic organs Pessary in place Sore throat (Chronic) Right thigh pain (Chronic) Burning with urination Arthralgia of multiple joints (Chronic) Urinary urgency (Acute) Sore mouth (Chronic) Gastritis Ulcer of toe Burning tongue Chronic pain (Chronic) Serenity infection (Acute) Moderate aortic stenosis by prior echocardiogram Mucositis Osteopenia Postmenopausal Frequent UTI on chronic macrobid suppression Severe left ventricular hypertrophy Anxiety Anemia intermediate (current) use of anticoagulants (Chronic) PAD (peripheral artery disease) Osteoarthritis Antiphospholipid antibody syndrome (Chronic) Medical History (Updated 02/03/24 @ 11:35 by Kaushal Loera MD) Pulmonary hypertension PASP 30-40mmHg 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 Sharma, ID Cystocele with incomplete uterovaginal prolapse PESSARY intermediate (current) use of systemic steroids MRSA infection hx [address] Llamas from an abdomen wound. was treated with Dalvance 3 weeks ago for healing of her toe. Stress incontinence in female History of DVT (deep vein thrombosis) HX MULTIPLE BLOOD CLOTS INCLUDING IN AORTA PER PT - last blood clot 8+ years ago, currently on coumadin Surgical History S/P foot surgery, left [facility] [place] Dr Izquierdo (2021) History of embolectomy (1996) aortic thrombus secondary to APLS History of esophagogastroduodenoscopy (EGD) Hx of tonsillectomy H/O foot surgery History of surgical procedure on eye proper using laser History of ligation of vein History of hernia repair History of ventral hernia repair History of cataract surgery R&L History of appendectomy Family History Mother Hypertension Daughter Systemic lupus erythematosus Antiphospholipid antibody syndrome Father No problems noted. Other Heart disease Nephrolithiasis No family history of adverse response to anesthesia Denies family history of Prostate cancer Hearing loss Cancer Stroke Social History Smoking Status: Never smoker Second Hand Exposure: No; Do You Dip or Chew Tobacco: No; Tobacco Cessation Education Requested by Patient: No Hx Alcohol Use: No Hx Substance Use: No Preferred Language: Yi Communication Ability: Effective Visual Impairment: No Limitations Hearing Ability: Normal Second Grade Teacher Required: No Beliefs That Will Affect Care: None marital status: Current Living Situation: Longterm Current Living Situation Comment: family lives nearby per pt current occupational status: retired How many Children do You have: 2 Other Information That Helps Us Care for You: No Feels Safe at Home: Yes Safety Concerns: Feels Safe At This Time caffeine: Yes Dental Care, Regularly: Yes Seatbelt Use: sometimes Sunscreen Use: Yes Assistive Devices: Bedside Commode, Glasses, Walker and Wheelchair Physical Exam 2 Physical Exam: Physical Exam: General: In no acute distress, stated age, chronically ill appearing but non- toxic HEENT: Normocephalic, atraumatic, no scleral icterus, pupils around round, symmetrical, and reactive to light, moist mucus membranes, JVD, trachea midline, no thyromegaly Chest/Pulm: No respiratory distress, symmetrical chest expansion, scattered expiratory wheezing and crackles throughout Cardiac: RRR, 3/6 systolic murmur noted Abdomen: Negative for ascites and bruising, normoactive bowel sounds, soft, non-tender to palpation throughout Musculoskeletal: Patient with tenderness on palpation of the skin overlying the right biceps muscle/tendon in the RUE, no acute trauma noted, full ROM in the BL Upper and lower extremities Extremities: Radial, dorsalis pedis, and posterior tibial pulses are intact and symmetrical, 2-3+ pitting edema noted in the BL LE's Skin: Chronic bruising due to Warfarin in the BL upper and lower extremities, patient with erythema and tenderness of the RLE consistent with cellulitis Neuro: Alert and oriented to person, place, month, year, and president, no focal defects,finger to nose test negative, no tremors noted Psych: No acute distress, calm and cooperative during the exam Results & Data Results & Data Vital Signs (Past 12 Hours) Vital Signs Temp Pulse Pulse Resp BP BP Pulse Ox 02/02/24 15:30 81 14 100 02/02/24 15:30 139/68 02/02/24 15:00 82 16 100 02/02/24 15:00 116/84 02/02/24 14:24 85 02/02/24 13:42 98 02/02/24 13:42 87 20 122/72 98 02/02/24 13:30 85 L 02/02/24 13:04 36.5 C 91 H 20 102/63 94 O2 Del Method 02/02/24 15:30 02/02/24 15:30 02/02/24 15:00 Room Air 02/02/24 15:00 02/02/24 14:24 02/02/24 13:42 Room Air 02/02/24 13:42 Room Air 02/02/24 13:30 Room Air 02/02/24 13:04 Room Air Laboratory Results Abnormal lab results 02/02/24 02/02/24 02/02/24 Range/Units 13:30 13:38 14:36 WBC 12.88 H (4.8-10.8) K/ul RBC 4.13 L (4.20-5.40) M/uL Hgb 10.5 L (12.0-16.0) g/dl Hct 34.9 L (37.0-47.0) % MCHC 30.1 L (32.0-36.0) g/dL RDW Std Deviation 62.5 H (36.4-46.3) fL RDW Coeff of Fernando 20.4 H (11.5-14.5) % Neut # (Auto) 11.91 H (1.40-6.50) K/uL Lymph # (Auto) 0.31 L (1.20-3.40) K/uL PT 30.8 H (9.0-12.0) Seconds INR 3.1 H (0.9-1.1) APTT 42 H (21-31) Seconds BUN 27 H (6-23) mg/dl BUN/Creatinine Ratio 30.0 H (10-20) Glucose 155 H (70-99(Fasting)) mg/dl Troponin I High Sens 445.6 H* 418.0 H* (0-14) pg/ml TSH 6.345 H (0.300-4.500) uIu/ml Urine Appearance Cloudy A (Clear) Urine Protein 1+ H (Negative) Urine Ketones Trace H (Negative) Ur Leukocyte Esterase Trace H (Negative) U Hyaline Cast (Auto) >20 H (0-2) /lpf Urine Mucus Present A (None Prsent) Diagnostic Findings Chest X-Ray 02/02/24 13:10 XR chest 1V portable HISTORY: 78 years-old Female weakness COMPARISON: 12/28/2023 TECHNIQUE: AP view the chest FINDINGS: Cardiac silhouette is enlarged. Small pleural effusions with left basilar predominant consolidation. No pneumothorax. Pulmonary vascular congestion. Degenerative changes of the shoulders and spine. IMPRESSION: 1. Cardiomegaly with pulmonary vascular congestion. 2. Small pleural effusions with left basilar predominant consolidation which may represent atelectasis versus pneumonia. ACT 112: Negative or not required by law. The above report was generated using voice recognition software. It may contain grammatical, syntax or spelling errors. Electronically signed by: Med Padilla M.D. 02/02/2024 2:[address] 02/02/24 13:11 CT SCAN OF THE BRAIN WITHOUT IV CONTRAST CLINICAL HISTORY: Change in mental status. COMPARISON STUDY: CT of the brain dated 12/14/2017. TECHNIQUE: Unenhanced axial CT scan of the brain is performed from the vertex to the skull base. A dose lowering technique was utilized adhering to the principles of ALARA. CT DOSE: 625.8 mGy.cm FINDINGS: Brain parenchyma: There is age-related involutional change noting moderate to advanced confluent subcortical and periventricular microangiopathic disease. A focus of right parietal encephalomalacia is consistent with a remote insult. There is no hemorrhage, mass effect, or evidence of acute territorial ischemia by CT criteria. Lloyd-white matter differentiation is preserved. No extra-axial fluid collection is seen. Ventricles, sulci, cisterns: Prominent secondary to involutional change. Intracranial vasculature: There is atherosclerotic calcification of the cavernous carotid and vertebral arteries. Calvarium: Unremarkable. Sinuses and mastoids: The visualized paranasal sinuses are clear. The mastoid air cells are well pneumatized. Orbits: The bony orbits are grossly intact. There are bilateral ocular lens implants. IMPRESSION: There is no hemorrhage, mass effect, or evidence of acute territorial ischemia by CT criteria. ACT 112: Negative or not required by law. Electronically signed by: Damon Cardona M.D. 02/02/2024 1:52 PM ECG Additional Comments: Sinus rhythm with Premature atrial complexes Possible Left atrial enlargement Left anterior fascicular block Left ventricular hypertrophy ( R in aVL , Lutz product ) Abnormal ECG When compared with ECG of 28-DEC-2023 17:02, Premature atrial complexes are now Present Nonspecific T wave abnormality now evident in Inferior leads Nonspecific T wave abnormality, improved in Lateral leads Code Status & VTE Plan Code Status Full code VTE Prophylaxis Plan VTE Prophylaxis will be ordered: Yes Supervising Physician Co-Signing Physician Notes I personally saw and examined the patient. I verified all chiang points and agree with Mark Burrows PA-C with the following exceptions and/or additions: 78 year old female presents to the ER with bilateral lower extremity swelling and PG Care Time/CCT Total # of Minutes Spent Total Time Spent with Patient: Total time spent is greater than 50% in coordination of care (as documented) at patient's floor/unit and/or counseling patient: Coding [place] [address] INT INP/OBS CARE 3/75MIN Patient Type Established Medical Decision Making High Complexity Diagnoses Volume overload E87.70 Elevated troponin R79.89 Swelling of both lower extremities M79.89 Cellulitis of right lower extremity L03.115 Antiphospholipid antibody syndrome D68.61 Chronic pain of right upper extremity M79.601; G89.29 Hypothyroidism E03.9 Rheumatoid arthritis involving both hands with negative rheumatoid factor M06.041; M06.042
[2024-02-02] MEDS ORDERED: ACETAMINOPHEN 325 MG TAB PO PRN (16:21)
--- NOTE | 2024-02-02 16:50 | Electrocardiogram Report ---
Test Reason : Blood Pressure : / mmHG Vent. Rate : 090 BPM Atrial Rate : 090 BPM P-R Int : 140 ms QRS Dur : 080 ms QT Int : 356 ms P-R-T Axes : 072 -54 012 degrees QTc Int : 435 ms Sinus rhythm with Premature atrial complexes Possible Left atrial enlargement Left anterior fascicular block Left ventricular hypertrophy Abnormal ECG When compared with ECG of 28-DEC-2023 17:02, Premature atrial complexes are now Present Nonspecific T wave abnormality now evident in Inferior leads Nonspecific T wave abnormality, improved in Lateral leads Confirmed by Get Mcmanus ([id number]) on 02/02/2024 4:50:06 PM Referred By: REFERRED SELF Confirmed By:Marcello Mcmanus
[2024-02-02 16:59] LABS: Adenovirus PCR Not Detected (NotDetected); Bordetella parapertussis PCR Not Detected (NotDetected); Bordetella pertussis PCR Not Detected (NotDetected); Chlamydia pneumoniae PCR Not Detected (NotDetected); Coronavirus 229E PCR Not Detected (NotDetected); Coronavirus CoV-2 (COVID19)PCR Not Detected (NotDetected); Coronavirus HKU1 PCR Not Detected (NotDetected); Coronavirus NL63 PCR Not Detected (NotDetected); Coronavirus OC43PCR Not Detected (NotDetected); Human Metapneumovirus PCR Not Detected (NotDetected); Influenza A PCR Not Detected (NotDetected); Influenza B PCR Not Detected (NotDetected); Mycoplasma pneumoniae PCR Not Detected (NotDetected); Parainfluenza Virus 1 PCR Not Detected (NotDetected); Parainfluenza Virus 2 PCR Not Detected (NotDetected); Parainfluenza Virus 3 PCR Not Detected (NotDetected); Parainfluenza Virus 4 PCR Not Detected (NotDetected); Respiratory Syncytial VirusPCR Not Detected (NotDetected); Rhinovirus/Enterovirus PCR Not Detected (NotDetected)
[2024-02-02] MEDS ORDERED: Patient's HEIGHT &/or WEIGHT Needed SCH (17:15)
[2024-02-02 17:25] LABS: Creatinine Urine Random 137.3 mg/dl; Protein Creatinine Ratio Urine 0.3 (0-0.2); Total Protein Urine Random 47.6 mg/dl (0-11.9)
--- NOTE | 2024-02-02 17:30 | Ultrasound Report ---
ULTRASOUND RIGHT LOWER EXTREMITY VENOUS CLINICAL HISTORY: Right leg pain and swelling. Erythema. COMPARISON STUDY: No priors. TECHNIQUE: Real-time, grayscale, and color Doppler sonography of the deep veins of the right lower ex tremity was performed from the inguinal crease to the calf. Compression and augmentation were utilize d. FINDINGS: There is no sonographic evidence of deep venous thrombosis identified in the right lower ex tremity. The common femoral, superficial femoral, and popliteal veins are patent and normally meghan sible. The greater saphenous vein and the profunda femoris vein at the junction with the common femor al vein are clear. The visualized calf veins are patent. A popliteal cyst measures 6.0 x 1.7 x 3.4 cm . IMPRESSION: 1. There is no sonographic evidence of deep venous thrombosis identified in the right lower extremity . 2. Popliteal cyst. ACT 112: Negative or not required by law. Electronically signed by: Damon Cardona M.D. 02/02/2024 5:28 PM
--- NOTE | 2024-02-02 17:32 | Ultrasound Report ---
ULTRASOUND RIGHT UPPER EXTREMITY VENOUS CLINICAL HISTORY: Right arm pain. COMPARISON STUDY: No priors.. TECHNIQUE: Real-time, grayscale, and color Doppler sonography of the deep veins of the right upper ex tremity is performed. Compression and augmentation were utilized. FINDINGS: There is no sonographic evidence of deep venous thrombosis identified in the right upper ex tremity. The right internal jugular, axillary, and brachial veins are patent and normally compressibl e. Normal venous waveforms and augmentation are seen within the right subclavian vein. The cephalic a nd basilic veins are clear. Portions of the forearm vessels were not visualized due to overlying band age material. Imaged portions of the radial and ulnar veins are patent. There are 2 complex nonvascul ar fluid collections identified in the right upper extremity. A collection overlying the right should er measures 5.5 x 1.3 x 3.0 cm, and a second smaller collection located more inferiorly measures 4.2 x 2.3 x 1.7 cm. IMPRESSION: 1. There is no sonographic evidence of deep venous thrombosis identified in the right upper extremity . 2. There are 2 complex nonvascular fluid collections in the right upper extremity as detailed above. These are indeterminate and may representing hematomas. The sterility of this fluid cannot be assesse d by imaging and clinical correlation will be required. Follow-up to resolution is recommended. ACT 112: Negative or not required by law. Electronically signed by: Damon Cardona M.D. 02/02/2024 5:30 PM
[2024-02-02] MEDS: cefTRIAXone SODIUM 2,000 MG/50 ML BAG IV SCH (18:05)
[2024-02-02] MEDS: ALBUT/IPRATROP 3MG/0.5MG NEB 3 ML VIAL NEB SCH (18:06)
[2024-02-02] MEDS: GABAPENTIN 300 MG CAP PO SCH (21:00)
[2024-02-02] MEDS: WARFARIN SOD 3 MG TAB PO SCH (21:00)
[2024-02-02] MEDS: PANTOprazole 40 MG TAB PO SCH (21:00)
[2024-02-02] MEDS: oxyCODONE/ACETAMINOPHEN 5mg/325mg TAB PO SCH (21:04)
[2024-02-02] MEDS: ZOLPIDEM TARTRATE 5 MG TAB PO PRN (22:43)
[2024-02-03] MEDS: LEVOTHYROXINE SODIUM 125 MCG TABLET PO SCH (06:02)
[2024-02-03] MEDS ORDERED: ALBUT/IPRATROP 3MG/0.5MG NEB 3 ML VIAL NEB PRN (08:13)
[2024-02-03 08:20] LABS: Hematocrit (blood only) 32.7 % (37.0-47.0); Hemoglobin 9.7 g/dl (12.0-16.0); Mean Corpuscular Hemoglobin 25.1 pg (25.0-34.0); Mean Corpuscular Hgb Conc 29.7 g/dL (32.0-36.0); Mean Corpuscular Volume 84.5 fL (80.0-100.0); Platelet Count 135 K/uL (130-400); RDW Coefficient of Variation 20.4 % (11.5-14.5); RDW Standard Deviation 62.6 fL (36.4-46.3); Red Blood Count 3.87 M/uL (4.20-5.40); White Blood Count 11.55 K/ul (4.8-10.8)
[2024-02-03 08:27] LABS: Albumin Globulin Ratio 1.3 (0.9-2); Albumin Level 3.2 gm/dl (3.4-5.0); BUN Creatinine Ratio 30.6 (10-20); Bilirubin,Total 0.5 mg/dl (0.2-1.0); Calcium 8.4 mg/dl (8.6-10.3); Creatinine Clr Calc Pharmacy 52.1 ml/min; Est GFR (African American) 77.1 ml/min; Est GFR (Non-African American) 66.6 ml/min; Globulin 2.5 gm/dl (2.5-4.0); Potassium 3.8 mmol/L (3.5-5.1); Total Protein 5.7 gm/dl (6.0-8.3)
[2024-02-03 08:33] LABS: INR 3.4 (0.9-1.1); Prothrombin Time 32.7 Seconds (9.0-12.0)
[2024-02-03 08:36] LABS: Basophils # (auto) 0.13 K/uL (0.00-0.20); Basophils % (auto) 1.1 %; Eosinophils # (auto) 0.33 K/uL (0.00-0.50); Eosinophils % (auto) 2.9 %; Immature Granulocytes # (auto) 0.07 K/uL (0.01-0.20); Immature Granulocytes % (auto) 0.6 %; Lymphocytes # (auto) 1.51 K/uL (1.20-3.40); Lymphocytes % (auto) 13.1 %; Monocytes % (auto) 7.8 %; Neutrophils # (auto) 8.61 K/uL (1.40-6.50); Neutrophils % (auto) 74.5 %; Polychromasia 1+; Schistocytes 1+
[2024-02-03] MEDS: SERTRALINE HCL 100 MG TABLET PO SCH (08:44)
[2024-02-03] MEDS ORDERED: methylPREDNISolone 10 mg/mL (For Ped Dose < 7mg) IV SCH (08:45)
[2024-02-03] MEDS: FUROSEMIDE INJ 20 MG/2 ML VIAL IV SCH (08:46)
[2024-02-03] MEDS: ALPRAZolam 0.25 MG TABLET PO SCH (08:46)
[2024-02-03] MEDS ORDERED: FUROSEMIDE INJ 20 MG/2 ML VIAL IV SCH (09:00)
[2024-02-03] MEDS ORDERED: predniSONE 10 MG TABLET PO SCH (09:00)
[2024-02-03] MEDS: methylPREDNISolone 40 MG in SYRINGE 0 ML IV SCH (10:09)
--- NOTE | 2024-02-03 11:40 | Hospitalist Progress Note ---
Date of Service February 03, 2024 Assessment & Plan (1) Volume overload: Plan: Due to acute diastolic CHF. Continue neuro Lasix parenteral diuresis. Monitor intake and output. Serial chest x-ray. (2) PSVT (paroxysmal supraventricular tachycardia): Plan: Noted on telemetry. Asymptomatic. Oral metoprolol has been started (3) Elevated troponin: Plan: Due to demand ischemia. No evidence of acute coronary syndrome. Cardiac echo report pending (4) Cellulitis of right lower extremity: Plan: Currently on Rocephin, day 2. Will follow. (5) Antiphospholipid antibody syndrome: Plan: History of DVT's and aortic thrombus. INR is slightly elevated at 3.4 and Coumadin has been placed on hold. Serial labs. (6) Chronic pain of right upper extremity: Plan: Venous Doppler negative for DVT. Solu-Medrol has been ordered. Will follow (7) Rheumatoid arthritis involving both hands with negative rheumatoid factor: Plan: Parenteral steroid therapy has been ordered. Prednisone has been placed on hold. Hold Plaquenil with active infection - Plan The patient is not happy with [facility]. OT and PT evaluations have been requested. She probably will be here through the weekend due to the CHF and SVT. Admission and Anticipated Discharge Date Admission Date: February 02, 2024 Subjective Alert and oriented. No distress. She states she came to the ED from [facility] because she was not getting adequate care at their facility. She has only been there for short period of time. Chest x-ray on admission is consistent with acute diastolic CHF with small bilateral pleural effusions. Telemetry is revealing episodes of paroxysmal SVT. Metoprolol tartrate 25 mg twice a day has been started. Parenteral Lasix has been increased to 40 mg twice daily. INR is up to 3.4 and Coumadin has been placed on hold. Venous Doppler evaluation of the right upper extremity is negative for DVT. Solu-Medrol has been started for symptomatic pain relief. Review of Systems 2 Review of Systems: Constitutional-no fever or chills ENT-no blurred vision, no double vision, no epistaxis, no sore throat Respiratory-no cough, no wheezing. She notices some dyspnea on exertion Cardiac-no palpitations, no chest pain, no syncope GI-no nausea, vomiting, diarrhea, melena, hematochezia -no urinary retention, no urinary incontinence, no dysuria, no hematuria Musculoskeletal-right upper extremity discomfort. No muscle tenderness Skin-no bruising, no rashes, no pruritus Neuro-no isolated weakness, no paresthesia Psych-no depression, no anxiety Physical Exam 2 Physical Exam: General-alert and oriented x3, no fever, no chills HEENT-head atraumatic and normocephalic, pupils equal and reactive to light, extraocular muscles intact Neck-no lymphadenopathy or thyromegaly, trachea midline Chest-dullness at both bases. Bibasilar inspiratory rales. No wheezing. Cardiac-regular rate and rhythm, normal S1 and S2 Abdomen-normal bowel sounds, no hepatosplenomegaly Extremities-no cyanosis, clubbing, or edema Neuro-cranial nerves II through XII intact, motor and sensory function within normal limits, strength symmetrical and consistent with age, no focal deficits Psych-normal affect, normal mood Results & Data Results & Data Vital Signs (Past 12 Hours) Vital Signs Temp Pulse Pulse Resp BP Pulse Ox O2 Del Method 02/03/24 10:54 36.2 C L 95 H 15 119/65 93 Room Air 02/03/24 07:50 36.5 C 87 15 134/76 93 Room Air 02/03/24 07:45 Room Air 02/03/24 07:17 78 14 100 Nasal Cannula 02/03/24 07:00 88 02/03/24 03:02 36.4 C L 74 18 108/60 100 Nasal Cannula O2 Flow Rate 02/03/24 10:54 02/03/24 07:50 02/03/24 07:45 02/03/24 07:17 2 02/03/24 07:00 02/03/24 03:02 2 Laboratory Results 02/03/24 07:33 02/03/24 07:33 PG Care Time/CCT Total # of Minutes Spent Total Time Spent with Patient: Total time spent is greater than 50% in coordination of care (as documented) at patient's floor/unit and/or counseling patient: Coding Level of Care Code 98284 SUB INP/OBS CARE 3/50MIN Diagnoses Volume overload E87.70 PSVT (paroxysmal supraventricular tachycardia) I47.10 Elevated troponin R79.89 Cellulitis of right lower extremity L03.115 Antiphospholipid antibody syndrome D68.61 Chronic pain of right upper extremity M79.601; G89.29 Rheumatoid arthritis involving both hands with negative rheumatoid factor M06.041; M06.042
[2024-02-03] MEDS: METOPROLOL TARTRATE 25 MG TAB PO SCH (12:26)
[2024-02-03] MEDS: PRAVASTATIN SOD 10 MG TAB PO SCH (12:26)
[2024-02-03] MEDS: ONDANSETRON INJ 2 MG/ML 2 ML VIAL IV PRN (14:54)
[2024-02-03] MEDS ORDERED: WARFARIN SOD 3 MG TAB PO SCH (16:00)
[2024-02-03] MEDS: FUROSEMIDE 40 MG/4 ML VIAL IV SCH (16:29)
--- NOTE | 2024-02-03 17:03 | XCELERA ---
[id number]
[2024-02-04 06:51] LABS: Hemoglobin 9.8 g/dl (12.0-16.0); Mean Corpuscular Hemoglobin 25.5 pg (25.0-34.0); Mean Corpuscular Hgb Conc 30.6 g/dL (32.0-36.0); Mean Corpuscular Volume 83.1 fL (80.0-100.0); Mean Platelet Volume 12.9 fL (9.4-12.4); Platelet Count 167 K/uL (130-400); RDW Coefficient of Variation 20.1 % (11.5-14.5); RDW Standard Deviation 60.4 fL (36.4-46.3); Red Blood Count 3.85 M/uL (4.20-5.40); White Blood Count 7.87 K/ul (4.8-10.8)
--- NOTE | 2024-02-04 07:04 | XRay Report ---
XR chest 1V portable HISTORY: 78 years-old Female CHF acute shortness of breath with reported heart failure COMPARISON: 02/02/2024 TECHNIQUE: AP view of the chest FINDINGS: Cardiac silhouette is enlarged. Atherosclerosis of the aorta. Pulmonary vascular congestion. No pneum othorax. Left greater than right layering pleural effusions with bibasilar opacities are unchanged. D egenerative changes of the shoulders and spine. IMPRESSION: 1. Cardiomegaly with pulmonary vascular congestion. 2. Small pleural effusions with left basilar predominant consolidation which may represent atelectasi s versus pneumonia. Findings appear stable from 02/02/2024 exam. ACT 112: Negative or not required by law. The above report was generated using voice recognition software. It may contain grammatical, syntax o r spelling errors. Electronically signed by: Med Padilla M.D. 02/04/2024 7:02 AM
[2024-02-04 07:05] LABS: BUN Creatinine Ratio 33.7 (10-20); Calcium 8.3 mg/dl (8.6-10.3); Creatinine Clr Calc Pharmacy 46.2 ml/min; Est GFR (African American) 67.4 ml/min; Est GFR (Non-African American) 58.2 ml/min
[2024-02-04 07:19] LABS: INR 2.5 (0.9-1.1)
[2024-02-04 07:20] LABS: Anisocytosis Present; Basophils # (auto) 0.01 K/uL (0.00-0.20); Basophils % (auto) 0.1 %; Immature Granulocytes # (auto) 0.03 K/uL (0.01-0.20); Immature Granulocytes % (auto) 0.4 %; Lymphocytes % (auto) 3.8 %; Monocytes % (auto) 5.1 %; Neutrophils # (auto) 7.13 K/uL (1.40-6.50); Neutrophils % (auto) 90.6 %; Polychromasia 1+
--- NOTE | 2024-02-04 13:37 | Cardiology Consultation ---
Date of Consultation February 04, 2024 Assessment & Plan (1) Severe aortic stenosis: (2) Mitral valve disease: (3) Elevated troponin: (4) PSVT (paroxysmal supraventricular tachycardia): Plan 1. Aortic stenosis: She is known to have severe aortic stenosis. In the past she has not been symptomatic likely due to her sedentary condition. She does have an element of volume overload at this point but this may be more related to diastolic dysfunction elevated pulmonary pressures in some mild right heart failure rather than true aortic stenosis. Unclear if she would be a good candidate for valve replacement. She does have an element of mitral valve disease as well. She seems quite frail and continues to have poor mobility overall. About replacement can be addressed in the outpatient setting. 2. Mitral valve disease: She has moderate mitral stenosis and regurgitation. 3. Edema: Primarily lower extremity edema. She did not endorse symptoms of dyspnea, but again is fairly sedentary. She is on an aggressive diuretic regimen. It is unclear she has affecting a good diuresis based on her recorded output. However, she reports subjective improvement in her edema. Renal function has been stable. Blood pressure stable. I think we can continue for the time being reducing her diuretics as necessary. 4. Diastolic heart failure: It is very likely she has an element of diastolic heart failure. This may have resulted in some elevated pulmonary pressures and some mild right ventricular dysfunction. Likely related to her severe LVH. Given her frequent urinary tract infection she is not a good candidate for an SG LT 2 inhibitor. Spironolactone could be entertained. However, I think the most immediate management would simply be continued diuresis. 5. Pulmonary hypertension: Moderate. Several potential etiologies to include her diastolic dysfunction, rheumatoid arthritis and possibly chronic thromboembolic disease. Will continue systemic anticoagulation and management of her cardiac condition. History of Present Illness Reason for Consultation: Pulmonary edema, severe aortic stenosis Requesting Physician: Luz Maria Attending Physician: Kaushal Loera MD History of Present Illness The patient is a 78-year-old woman with an extensive past medical history to include known severe aortic stenosis, rheumatoid arthritis, antiphospholipid syndrome and prior venous thrombotic disease. She appears to be poorly mobile due to chronic orthopedic conditions. Currently a resident at [facility]. It seems that she has had more difficulty with mobility and weakness leading up to her admission. In fact, it seems that she was too weak to get off of a commode recently. Additionally family members and nursing staff noted worsening lower extremity edema. The patient was able to provide some history, but did appear to be confused at times. She states that her lower extremity edema is improved. She did not report symptoms of shortness of breath at any time leading up to her admission. No symptoms of chest pain. No sense of palpitation. Asked about her mobility she states that she can still mow her lawn clearly is not true. She was unable to provide much detailed history regarding her activity level at current res idence. Allergies Allergy/AdvReac Type Severity Reaction Status Date / Time amoxicillin [From Augmentin] Allergy Intermediate Hives Verified 01/28/24 12:43 bacitracin Allergy Intermediate hives Verified 01/28/24 12:43 clavulanic acid Allergy Intermediate Hives Verified 01/28/24 12:43 [From Augmentin] latex Allergy Intermediate localized Verified 01/28/24 12:43 swelling sulfamethoxazole Allergy Intermediate hives Verified 01/28/24 12:43 trimethoprim Allergy Intermediate hives Verified 01/28/24 12:43 menthol [From Calmoseptine] Allergy Mild redness/hiv Verified 01/28/24 12:43 es mineral oil [From Aquaphor] Allergy Mild redness/hiv Verified 01/28/24 12:43 es petrolatum,hydrophilic Allergy Mild redness/hiv Verified 01/28/24 12:43 [From Aquaphor] es zinc oxide Allergy Mild redness/hiv Verified 01/28/24 12:43 [From Calmoseptine] es tetracycline Allergy Unknown Unknown Verified 01/28/24 12:43 Home Medications Medication Instructions Recorded Confirmed Type acetaminophen 500 mg capsule 500 mg PO DAILY PRN pain 07/11/19 02/02/24 History calcium carbonate 600 mg-vitamin 2 cap PO BID #0 caps 10/16/19 02/02/24 History D3 5 mcg (200 unit) capsule (Calcium 600 + D(3)) diclofenac sodium 1 % topical gel 4 g topical TID PRN Pain #100 grams 11/29/23 02/02/24 Rx alprazolam 0.25 mg tablet (Xanax) 0.125 mg (1/2 x 0.25 mg) PO QAM 01/19/24 02/02/24 Rx anxiety #90 tabs ascorbic acid (vitamin C) 1,000 mg 1 g PO DAILY 90 days #90 caps 01/19/24 02/02/24 Rx capsule ferrous sulfate 325 mg (65 mg 325 mg PO DAILY 90 days #90 tabs 01/19/24 02/02/24 Rx iron) tablet hydroxychloroquine 200 mg tablet 200 mg PO QAM #180 tabs 01/19/24 02/02/24 Rx levothyroxine 125 mcg tablet 125 mcg PO QAM #90 tabs 01/19/24 02/02/24 Rx (Synthroid) naloxone 4 mg/actuation nasal 4 mg intranasal Q3M PRN opioid 01/19/24 02/02/24 Rx spray (Narcan) overdose #2 ea nitrofurantoin macrocrystal 100 mg 100 mg PO QAM #90 caps 01/19/24 02/02/24 Rx capsule (Macrodantin) oxycodone 20 mg tablet,crush 20 mg PO QAM #30 tabs 01/19/24 02/02/24 Rx resistant,extended release 12 hr (OxyContin) oxycodone-acetaminophen 5 mg-325 1 tab PO TID #90 tabs 01/19/24 02/02/24 Rx mg tablet (Percocet) pravastatin 10 mg tablet 10 mg PO QDL #90 tabs 01/19/24 02/02/24 Rx prednisone 10 mg tablet 10 mg PO DAILY #90 tabs 01/19/24 02/02/24 Rx rabeprazole 20 mg tablet,delayed 20 mg PO BID #180 tabs 01/19/24 02/02/24 Rx release (AcipHex) sertraline 100 mg tablet 200 mg (2 x 100 mg) PO DAILY 90 01/19/24 02/02/24 Rx days #180 tabs zolpidem 10 mg tablet (Ambien) 10 mg PO HS PRN Sleep 01/19/24 02/02/24 History warfarin 3 mg tablet See Rx Instructions PO .COMPLEX 01/27/24 02/02/24 History celecoxib 200 mg capsule 200 mg PO DAILY 02/02/24 02/02/24 History gabapentin 300 mg capsule 300 mg PO Q12 02/02/24 02/02/24 History multivitamin (Daily-Maritza tablet) 1 tab PO DAILY 02/02/24 02/02/24 History Patient History Medical History (Updated 02/04/24 @ 13:58 by Get Mcmanus MD) Pulmonary hypertension PASP 30-40mmHg 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 Sharma, ID Cystocele with incomplete uterovaginal prolapse PESSARY skilled nursing (current) use of systemic steroids MRSA infection hx [address] Llamas from an abdomen wound. was treated with Dalvance 3 weeks ago for healing of her toe. Stress incontinence in female History of DVT (deep vein thrombosis) HX MULTIPLE BLOOD CLOTS INCLUDING IN AORTA PER PT - last blood clot 8+ years ago, currently on coumadin Surgical History S/P foot surgery, left [facility] Dr Izquierdo (2021) History of embolectomy (1996) aortic thrombus secondary to APLS History of esophagogastroduodenoscopy (EGD) Hx of tonsillectomy H/O foot surgery History of surgical procedure on eye proper using laser History of ligation of vein History of hernia repair History of ventral hernia repair History of cataract surgery R&L History of appendectomy Family History Mother Hypertension Daughter Systemic lupus erythematosus Antiphospholipid antibody syndrome Father No problems noted. Other Heart disease Nephrolithiasis No family history of adverse response to anesthesia Denies family history of Prostate cancer Hearing loss Cancer Stroke Social History Smoking Status: Never smoker Second Hand Exposure: No; Do You Dip or Chew Tobacco: No; Tobacco Cessation Education Requested by Patient: No Hx Alcohol Use: No Hx Substance Use: No Preferred Language: Panamanian Communication Ability: Effective Visual Impairment: No Limitations Hearing Ability: Normal [employer] Sales[employer] Required: No Beliefs That Will Affect Care: None marital status: Current Living Situation: Custodial Current Living Situation Comment: family lives nearby per pt current occupational status: retired How many Children do You have: 2 Other Information That Helps Us Care for You: No Feels Safe at Home: Yes Safety Concerns: Feels Safe At This Time caffeine: Yes Dental Care, Regularly: Yes Seatbelt Use: sometimes Sunscreen Use: Yes Assistive Devices: Bedside Commode, Glasses, Walker and Wheelchair Review of Systems Review of Systems: Per HPI. Physical Exam Physical Exam: She is alert and oriented x3. Mood affect appear normal. She answered all questions appropriately. Confused at times HEENT: Sclerae are anicteric. Pupils are equal and reactive to light and accommodation. Extraocular movements were intact. Neuro: Cranial nerves intact Lungs: Lungs are clear to auscultation bilaterally. There are no rales wheezes or rhonchi. She has normal respiratory effort without use of accessory muscles. There is normal pulmonary excursion. Cardiac: The rhythm was regular. S1 and S2 were normal. Crescendo systolic murmur, late peaking The PMI was not markedly displaced on palpation. Extremities: Patient has bilateral radial pulses that are equal in intensity but diminished. There is no evidence cyanosis or clubbing. There was no evidence of significant peripheral edema bilaterally. Skin: There are no rashes noted on examination today. Extensive ecchymosis. Results & Data Vital Signs (Past 12 Hours) Vital Signs Temp Pulse Pulse Resp BP BP Pulse Ox 02/04/24 11:31 73 20 107/70 92 02/04/24 07:54 36.7 C 76 20 129/75 96 02/04/24 07:30 71 02/04/24 03:34 36.5 C 76 16 137/77 94 O2 Del Method 02/04/24 11:31 Room Air 02/04/24 07:54 Room Air 02/04/24 07:30 02/04/24 03:34 Room Air Laboratory Results Abnormal Lab Results 02/04/24 05:39 WBC 7.87 RBC 3.85 L Hgb 9.8 L Hct 32.0 L MCV 83.1 MCH 25.5 MCHC 30.6 L RDW Std Deviation 60.4 H RDW Coeff of Fernando 20.1 H Plt Count 167 MPV 12.9 H Immature Gran % (Auto) 0.4 Neut % (Auto) 90.6 Lymph % (Auto) 3.8 [place] % (Auto) 5.1 Eos % (Auto) 0.0 Baso % (Auto) 0.1 Neut # (Auto) 7.13 H Lymph # (Auto) 0.30 L [place] # (Auto) 0.40 Eos # (Auto) 0.00 Baso # (Auto) 0.01 Immature Gran # (Auto) 0.03 Polychromasia 1+ Anisocytosis Present PT 25.0 H INR 2.5 H Sodium 137 Potassium 4.0 Chloride 98 Carbon Dioxide 31 Anion Gap 8 BUN 32 H Creatinine 0.95 Est Cr Clr Drug Dosing 46.2 Est GFR ( Amer) 67.4 Est GFR (Non-Af Amer) 58.2 BUN/Creatinine Ratio 33.7 H Glucose 124 H Calcium 8.3 L Diagnostic Findings Echocardiogram performed 02/03/2024: Normal LV systolic function with ejection fraction greater than 70%. Severe LVH. Mildly reduced RV systolic function. Severe aortic stenosis. Moderate mitral regurgitation. Moderate mitral stenosis. Elevated pulmonary pressure PG Care Time/CCT Total # of Minutes Spent Total Time Spent with Patient: Total time spent is greater than 50% in coordination of care (as documented) at patient's floor/unit and/or counseling patient: Coding Level of Care Code 84568 INT INP/OBS CARE 3/75MIN Diagnoses Severe aortic stenosis I35.0 Mitral valve disease I05.9 Elevated troponin R79.89 PSVT (paroxysmal supraventricular tachycardia) I47.10
--- NOTE | 2024-02-04 14:20 | Hospitalist Progress Note ---
Date of Service February 04, 2024 Assessment & Plan (1) Volume overload: Plan: Due to acute diastolic CHF. Continue Lasix parenteral diuresis. Monitor intake and output. Serial chest x-ray. Appreciate cardiology consultation and recommendations (2) PSVT (paroxysmal supraventricular tachycardia): Plan: Noted on telemetry. Asymptomatic. Suppressed with oral metoprolol which is new (3) Elevated troponin: Plan: Due to demand ischemia. No evidence of acute coronary syndrome. Cardiac echo report noted (4) Cellulitis of right lower extremity: Plan: Currently on Rocephin, day 3. Improving. Will follow. (5) Antiphospholipid antibody syndrome: Plan: History of DVT's and aortic thrombus. INR is now down to 2.5. Coumadin has been restarted. Serial labs. (6) Chronic pain of right upper extremity: Plan: Venous Doppler negative for DVT. Solu-Medrol appears to be helping the discomfort. Will follow (7) Rheumatoid arthritis involving both hands with negative rheumatoid factor: Plan: Now on parenteral steroid therapy. Her usual oral prednisone has been placed on hold. Hold Plaquenil temporarily with active infection - Plan The patient is not happy with [facility] and refuses to return. Awaiting eventual placement at [facility]. Admission and Anticipated Discharge Date Admission Date: February 02, 2024 Subjective Alert and oriented. No distress. Cardiology consultation and recommendations appreciated. INR is down to 2.5 and Coumadin has been restarted. Continue parenteral Lasix diuresis. She remains on Rocephin, day 3, for the right lower extremity cellulitis. She refuses to return to [facility] and placement at [facility] is pending. Review of Systems 2 Review of Systems: Constitutional-no fever or chills ENT-no blurred vision, no double vision, no epistaxis, no sore throat Respiratory-no cough, no wheezing. She notices some dyspnea on exertion Cardiac-no palpitations, no chest pain, no syncope GI-no nausea, vomiting, diarrhea, melena, hematochezia -no urinary retention, no urinary incontinence, no dysuria, no hematuria Musculoskeletal-right upper extremity discomfort. No muscle tenderness Skin-no bruising, no rashes, no pruritus Neuro-no isolated weakness, no paresthesia Psych-no depression, no anxiety Physical Exam 2 Physical Exam: General-alert and oriented x3, no fever, no chills HEENT-head atraumatic and normocephalic, pupils equal and reactive to light, extraocular muscles intact Neck-no lymphadenopathy or thyromegaly, trachea midline Chest-dullness at both bases. Bibasilar inspiratory rales. No wheezing. Cardiac-regular rate and rhythm, normal S1 and S2 Abdomen-normal bowel sounds, no hepatosplenomegaly Extremities-no cyanosis, clubbing, or edema Neuro-cranial nerves II through XII intact, motor and sensory function within normal limits, strength symmetrical and consistent with age, no focal deficits Psych-normal affect, normal mood Results & Data Results & Data Vital Signs (Past 12 Hours) Vital Signs Temp Pulse Pulse Resp BP BP Pulse Ox 02/04/24 11:31 73 20 107/70 92 02/04/24 07:54 36.7 C 76 20 129/75 96 02/04/24 07:30 71 02/04/24 03:34 36.5 C 76 16 137/77 94 O2 Del Method 02/04/24 11:31 Room Air 02/04/24 07:54 Room Air 02/04/24 07:30 02/04/24 03:34 Room Air Laboratory Results 02/04/24 05:39 02/04/24 05:39 PG Care Time/CCT Total # of Minutes Spent Total Time Spent with Patient: Total time spent is greater than 50% in coordination of care (as documented) at patient's floor/unit and/or counseling patient: Coding Level of Care Code 20455 SUB INP/OBS CARE 3/50MIN Diagnoses Volume overload E87.70 PSVT (paroxysmal supraventricular tachycardia) I47.10 Elevated troponin R79.89 Cellulitis of right lower extremity L03.115 Antiphospholipid antibody syndrome D68.61 Chronic pain of right upper extremity M79.601; G89.29 Rheumatoid arthritis involving both hands with negative rheumatoid factor M06.041; M06.042
[2024-02-04] MEDS: WARFARIN SOD 3 MG TAB PO SCH (16:08)
[2024-02-05 06:40] LABS: BUN Creatinine Ratio 39.1 (10-20); Calcium 8.2 mg/dl (8.6-10.3); Creatinine Clr Calc Pharmacy 37.6 ml/min; Est GFR (African American) 53.5 ml/min; Est GFR (Non-African American) 46.2 ml/min
[2024-02-05 07:08] LABS: Mean Corpuscular Hemoglobin 25.3 pg (25.0-34.0); Mean Corpuscular Hgb Conc 31.3 g/dL (32.0-36.0); Mean Platelet Volume 12.1 fL (9.4-12.4); Platelet Count 157 K/uL (130-400); RDW Coefficient of Variation 19.6 % (11.5-14.5); Red Blood Count 3.95 M/uL (4.20-5.40); White Blood Count 11.72 K/ul (4.8-10.8)
[2024-02-05 07:15] LABS: INR 2.7 (0.9-1.1); Prothrombin Time 27.1 Seconds (9.0-12.0)
[2024-02-05 07:31] LABS: Anisocytosis Present; Basophils # (auto) 0.01 K/uL (0.00-0.20); Basophils % (auto) 0.1 %; Immature Granulocytes # (auto) 0.09 K/uL (0.01-0.20); Immature Granulocytes % (auto) 0.8 %; Lymphocytes # (auto) 0.41 K/uL (1.20-3.40); Lymphocytes % (auto) 3.5 %; Monocytes % (auto) 4.3 %; Neutrophils # (auto) 10.71 K/uL (1.40-6.50); Neutrophils % (auto) 91.3 %; Ovalocytes 1+; Polychromasia 1+
[2024-02-05] MEDS: predniSONE 10 MG TABLET PO SCH (09:30)
--- NOTE | 2024-02-05 10:17 | Hospitalist Progress Note ---
Date of Service February 05, 2024 Assessment & Plan (1) Volume overload: Plan: Due to acute diastolic CHF. Continue Lasix parenteral diuresis. Monitor intake and output. Serial chest x-ray. Appreciate cardiology consultation and recommendations (2) PSVT (paroxysmal supraventricular tachycardia): Plan: Noted on telemetry. Asymptomatic. Suppressed with oral metoprolol which is new (3) Elevated troponin: Plan: Due to demand ischemia. No evidence of acute coronary syndrome. Cardiac echo report noted (4) Cellulitis of right lower extremity: Plan: Currently on Rocephin, day 4. Improving. Will follow. (5) Antiphospholipid antibody syndrome: Plan: History of DVT's and aortic thrombus. INR is 2.7 today, February 04. Serial labs. (6) Chronic pain of right upper extremity: Plan: Venous Doppler negative for DVT. Solu-Medrol has been switched back to her usual oral prednisone dosage. Much improved (7) Rheumatoid arthritis involving both hands with negative rheumatoid factor: Plan: Treated transiently with parenteral steroid therapy. This has been switched back to her usual oral prednisone dosage. Hold Plaquenil temporarily with active infection - Plan The patient is not happy with [facility] and refuses to return. Awaiting eventual placement at [facility]. Admission and Anticipated Discharge Date Admission Date: February 02, 2024 Subjective Alert and oriented. Pleasant. No acute distress. Stable overall. Will repeat portable chest x-ray again tomorrow, February 05. Placement at [facility] remains pending. Review of Systems 2 Review of Systems: Constitutional-no fever or chills ENT-no blurred vision, no double vision, no epistaxis, no sore throat Respiratory-no cough, no wheezing. She notices some dyspnea on exertion Cardiac-no palpitations, no chest pain, no syncope GI-no nausea, vomiting, diarrhea, melena, hematochezia -no urinary retention, no urinary incontinence, no dysuria, no hematuria Musculoskeletal-right upper extremity discomfort. No muscle tenderness Skin-no bruising, no rashes, no pruritus Neuro-no isolated weakness, no paresthesia Psych-no depression, no anxiety Physical Exam 2 Physical Exam: General-alert and oriented x3, no fever, no chills HEENT-head atraumatic and normocephalic, pupils equal and reactive to light, extraocular muscles intact Neck-no lymphadenopathy or thyromegaly, trachea midline Chest-dullness at both bases. Bibasilar inspiratory rales. No wheezing. Cardiac-regular rate and rhythm, normal S1 and S2 Abdomen-normal bowel sounds, no hepatosplenomegaly Extremities-no cyanosis, clubbing, or edema Neuro-cranial nerves II through XII intact, motor and sensory function within normal limits, strength symmetrical and consistent with age, no focal deficits Psych-normal affect, normal mood Results & Data Results & Data Vital Signs (Past 12 Hours) Vital Signs Temp Pulse Resp BP Pulse Ox O2 Del Method 02/05/24 09:05 Room Air 02/05/24 07:25 36.7 C 74 15 124/77 93 Room Air 02/05/24 04:14 36.5 C 73 20 119/69 93 Room Air 02/04/24 23:51 36.9 C 78 20 116/69 92 Room Air Laboratory Results 02/05/24 05:49 02/05/24 05:49 PG Care Time/CCT Total # of Minutes Spent Total Time Spent with Patient: Total time spent is greater than 50% in coordination of care (as documented) at patient's floor/unit and/or counseling patient: Coding Level of Care Code 05545 SUB INP/OBS CARE 3/50MIN Diagnoses Volume overload E87.70 PSVT (paroxysmal supraventricular tachycardia) I47.10 Elevated troponin R79.89 Cellulitis of right lower extremity L03.115 Antiphospholipid antibody syndrome D68.61 Chronic pain of right upper extremity M79.601; G89.29 Rheumatoid arthritis involving both hands with negative rheumatoid factor M06.041; M06.042
[2024-02-06 07:11] LABS: BUN Creatinine Ratio 52.4 (10-20); Calcium 8.1 mg/dl (8.6-10.3); Est GFR (African American) 61.2 ml/min; Est GFR (Non-African American) 52.8 ml/min; Potassium 3.1 mmol/L (3.5-5.1)
--- NOTE | 2024-02-06 08:18 | XRay Report ---
XR chest 1V portable HISTORY: 78 years-old Female CHF acute shortness of breath COMPARISON: 02/04/2024 TECHNIQUE: AP view of the chest FINDINGS: Cardiac silhouette is enlarged. Mitral annular calcifications. No pneumothorax. Pulmonary vascular co ngestion. Left greater than right pleural effusions with bibasilar opacities are again noted. Bones a ppear grossly intact. IMPRESSION: 1. Cardiomegaly with pulmonary vascular congestion. 2. Left greater than right pleural effusions with left basilar predominant consolidation redemonstrat ed. ACT 112: Negative or not required by law. The above report was generated using voice recognition software. It may contain grammatical, syntax o r spelling errors. Electronically signed by: Med Padilla M.D. 02/06/2024 8:17 AM
[2024-02-06 09:49] LABS: Prothrombin Time 29.5 Seconds (9.0-12.0)
[2024-02-06] MEDS: POLYETHYLENE (MIRALAX) 17 GM PACK PO SCH (10:25)
[2024-02-06] MEDS: DOCUSATE SODIUM 100 MG CAP PO SCH (10:25)
--- NOTE | 2024-02-06 12:51 | Cardiology Progress Note ---
Date of Service February 06, 2024 Assessment & Plan (1) Severe aortic stenosis: (2) Mitral valve disease: (3) Elevated troponin: (4) PSVT (paroxysmal supraventricular tachycardia): (5) Volume overload: Plan: Although chest x-ray shows some residual pulmonary edema, she feels well and appears to be approaching euvolemic status. Could reduce furosemide from twice daily to once daily. Replete potassium. We discussed potential role of transcatheter aortic valve replacement (TAVR), as in the past she is not inclined to proceed in the absence of active symptoms. Since she did have probable diastolic congestive heart failure, she certainly would be a candidate, but if this can be managed medically for a while she would not be inclined to proceed immediately to TAVR. However, if she has recurrent heart failure, she would then consider this option. If she is doing well, she could potentially be discharged back to [facility] soon. Admission and Anticipated Discharge Date Admission Date: February 02, 2024 Subjective Patient known to me from outpatient cardiology encounters. Uneventful night, she is doing well and anxious to return home. She denies chest pain, dyspnea, or palpitations. No lightheadedness. Physical Exam Physical Exam: No distress. BP normotensive. Pulse 70 bpm and regular. Skin: no ecchymoses or generalized lesions. HEENT: unremarkable. Neck: JVP at the clavicle at 90 degrees, no carotid bruits. Lungs: Scattered crackles with good airflow no wheezing. No accessory muscle use. Cardiac: regular rhythm, normal S1 with absent aortic closure sound, 3/6 crescendo decrescendo systolic ejection murmur right upper sternal border radiating widely (carotids, apex, axilla), no diastolic murmur or distinct gallop. Abdomen: benign. Extremities: no edema, pulses intact. Neurologic: normal affect and conversation, nonfocal. Results & Data Vital Signs (Past 12 Hours) Vital Signs Temp Pulse Pulse Resp BP Pulse Ox O2 Del Method 02/06/24 11:34 Room Air 02/06/24 11:18 97.5 F L 71 14 130/76 93 Room Air 02/06/24 07:38 98.1 F 66 14 144/76 H 97 Room Air 02/06/24 07:30 70 02/06/24 03:48 97.5 F L 59 L 20 133/65 94 Room Air Laboratory Results Sodium 139, potassium 3.1, BUN 54, creatinine 1.03. Diagnostic Findings Chest x-ray today showed cardiomegaly with pulmonary vascular congestion and left greater than right pleural effusions. PG Care Time/CCT Total # of Minutes Spent Total Time Spent with Patient: Total time spent is greater than 50% in coordination of care (as documented) at patient's floor/unit and/or counseling patient: Coding Level of Care Code 39468 SUB INP/OBS CARE 2/35MIN Diagnoses Severe aortic stenosis I35.0 Mitral valve disease I05.9 Elevated troponin R79.89 PSVT (paroxysmal supraventricular tachycardia) I47.10 Volume overload E87.70
--- NOTE | 2024-02-06 14:24 | Hospitalist Progress Note ---
Date of Service February 06, 2024 Assessment & Plan (1) Volume overload: Plan: Due to acute diastolic CHF. Continue Lasix parenteral diuresis. Lasix decreased to once daily dosing. Monitor intake and output. Serial chest x-ray. Appreciate cardiology consultation and recommendations (2) Hypokalemia: Plan: Due to Lasix therapy. Oral replacement. Serial labs (3) PSVT (paroxysmal supraventricular tachycardia): Plan: Noted on telemetry. Asymptomatic. Suppressed with oral metoprolol which is new (4) Elevated troponin: Plan: Due to demand ischemia. No evidence of acute coronary syndrome. Cardiac echo report noted (5) Cellulitis of right lower extremity: Plan: Treated with 5 days of Rocephin. Resolved. Antibiotics have been discontinued. (6) Antiphospholipid antibody syndrome: Plan: History of DVT's and aortic thrombus. INR is 3.0 today, February 05. Coumadin has been placed on hold. Serial labs. (7) Chronic pain of right upper extremity: Plan: Venous Doppler negative for DVT. Solu-Medrol has been switched back to her usual oral prednisone dosage. Much improved (8) Rheumatoid arthritis involving both hands with negative rheumatoid factor: Plan: Treated transiently with parenteral steroid therapy. This has been switched back to her usual oral prednisone dosage. Hold Plaquenil temporarily with active infection - Plan The patient is not happy with [facility] and refuses to return. Awaiting eventual placement at [facility]. Admission and Anticipated Discharge Date Admission Date: February 02, 2024 Subjective Alert and oriented. No distress. Cardiology entry noted. Lasix decreased to once daily dosing. INR is 3.0. Will hold Coumadin for now. Potassium remains low. Oral potassium replacement ordered. Chest x-ray done today, February 05, continues to reveal small bilateral effusions with pulmonary vascular congestion.. No overt pulmonary edema. I updated her daughter by phone Review of Systems 2 Review of Systems: Constitutional-no fever or chills ENT-no blurred vision, no double vision, no epistaxis, no sore throat Respiratory-no cough, no wheezing. She notices some dyspnea on exertion Cardiac-no palpitations, no chest pain, no syncope GI-no nausea, vomiting, diarrhea, melena, hematochezia -no urinary retention, no urinary incontinence, no dysuria, no hematuria Musculoskeletal-right upper extremity discomfort. No muscle tenderness Skin-no bruising, no rashes, no pruritus Neuro-no isolated weakness, no paresthesia Psych-no depression, no anxiety Physical Exam 2 Physical Exam: General-alert and oriented x3, no fever, no chills HEENT-head atraumatic and normocephalic, pupils equal and reactive to light, extraocular muscles intact Neck-no lymphadenopathy or thyromegaly, trachea midline Chest-dullness at both bases. Bibasilar inspiratory rales. No wheezing. Cardiac-regular rate and rhythm, normal S1 and S2 Abdomen-normal bowel sounds, no hepatosplenomegaly Extremities-no cyanosis, clubbing, or edema Neuro-cranial nerves II through XII intact, motor and sensory function within normal limits, strength symmetrical and consistent with age, no focal deficits Psych-normal affect, normal mood Results & Data Results & Data Vital Signs (Past 12 Hours) Vital Signs Temp Pulse Pulse Resp BP Pulse Ox O2 Del Method 02/06/24 11:34 Room Air 02/06/24 11:18 36.4 C L 71 14 130/76 93 Room Air 02/06/24 07:38 36.7 C 66 14 144/76 H 97 Room Air 02/06/24 07:30 70 02/06/24 03:48 36.4 C L 59 L 20 133/65 94 Room Air Laboratory Results 02/05/24 05:49 02/06/24 06:11 PG Care Time/CCT Total # of Minutes Spent Total Time Spent with Patient: Total time spent is greater than 50% in coordination of care (as documented) at patient's floor/unit and/or counseling patient: Coding Level of Care Code 49960 SUB INP/OBS CARE 3/50MIN Diagnoses Volume overload E87.70 Hypokalemia E87.6 PSVT (paroxysmal supraventricular tachycardia) I47.10 Elevated troponin R79.89 Cellulitis of right lower extremity L03.115 Antiphospholipid antibody syndrome D68.61 Chronic pain of right upper extremity M79.601; G89.29 Rheumatoid arthritis involving both hands with negative rheumatoid factor M06.041; M06.042
[2024-02-06] MEDS: POTASSIUM CHLORIDE CRTAB 20 MEQ TABCR PO SCH (15:23)
[2024-02-07 06:19] LABS: BUN Creatinine Ratio 43.6 (10-20); Calcium 8.5 mg/dl (8.6-10.3); Est GFR (African American) 68.3 ml/min; Est GFR (Non-African American) 58.9 ml/min; Potassium 3.5 mmol/L (3.5-5.1)
[2024-02-07 06:22] LABS: INR 2.6 (0.9-1.1); Prothrombin Time 25.8 Seconds (9.0-12.0)
[2024-02-07] MEDS: FUROSEMIDE 40 MG/4 ML VIAL IV SCH (08:14)
--- NOTE | 2024-02-07 13:32 | Cardiology Progress Note ---
Date of Service February 07, 2024 Assessment & Plan (1) Severe aortic stenosis: (2) Mitral valve disease: (3) Elevated troponin: (4) PSVT (paroxysmal supraventricular tachycardia): (5) Volume overload: Plan She is doing well and appears euvolemic, she did have brief episode of PAT but this was nonsustained and asymptomatic. Would recommend discharge on a weight-based diuretic regimen rather than daily dosing, since overdiuresis should be scrupulously avoided in the context of severe aortic stenosis. Currently, her weight is at the recent minimum (115 pounds), if she gains 2 pounds in a day or 5 pounds a week she could take a dose of furosemide 40 mg orally on that day. Could consolidate metoprolol to tartrate dosing to metoprolol succinate 50 mg daily dosing. Did discuss potential TAVR, but she states that "I really don't want to do anything now", will continue dialogue as outpatient and reconsider TAVR if she has repeated hospitalizations. Admission and Anticipated Discharge Date Admission Date: February 02, 2024 Subjective Uneventful night. Feels well, anxious to go home. No chest pain, dyspnea, palpitations, or lightheadedness. Telemetry showed sinus rhythm with PACs and PVCs, with a 1 minute episode of PAT noted. Physical Exam Physical Exam: No distress. BP normotensive. Pulse 76 bpm and regular. Skin: Extensive left arm and shoulder region ecchymoses, no generalized lesions. HEENT: unremarkable. Neck: JVP at the clavicle at 90 degrees, no carotid bruits. Lungs: Scattered crackles with good airflow no wheezing. No accessory muscle use. Cardiac: regular rhythm, normal S1 with absent aortic closure sound, 3/6 crescendo decrescendo systolic ejection murmur right upper sternal border radiating widely (carotids, apex, axilla), no diastolic murmur or distinct gallop. Abdomen: benign. Extremities: no edema, pulses intact. Neurologic: normal affect and conversation, nonfocal. Results & Data Vital Signs (Past 12 Hours) Vital Signs Temp Pulse Pulse Resp BP Pulse Ox O2 Del Method 02/07/24 11:08 97.7 F 76 18 136/74 94 Room Air 02/07/24 10:46 Room Air 02/07/24 07:40 97.5 F L 76 18 140/75 97 Room Air 02/07/24 05:50 76 02/07/24 03:48 98.1 F 74 20 124/77 93 Room Air Laboratory Results Normal electrolytes, BUN 41, creatinine 0.94. PG Care Time/CCT Total # of Minutes Spent Total Time Spent with Patient: Total time spent is greater than 50% in coordination of care (as documented) at patient's floor/unit and/or counseling patient: Coding Level of Care Code 49605 SUB INP/OBS CARE 3/50MIN Diagnoses Severe aortic stenosis I35.0 Mitral valve disease I05.9 Elevated troponin R79.89 PSVT (paroxysmal supraventricular tachycardia) I47.10 Volume overload E87.70
--- NOTE | 2024-02-07 14:00 | Discharge Summary ---
Discharge Summary Date of Service February 07, 2024 Notes For Next Care Provider Check PT/INR in 2-3 days Needs CHF Clinic follow up in 1 week, Cardiology follow up in [address] 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 She was noted to be tachycardic on arrival at but was otherwise stable. Labs were significant for a leukocytosis of 12 with neutrophil predominance of 11, lymphopenia of 0.31, INR of 3.1, initial high sen trop of 445, and UA with cloudy urine, 1+ protein, trace ketones, trace leukocyte esterase, WNC WNL, and negative for bacteria. Chest xray was read as 1. Cardiomegaly with pulmonary vascular congestion. 2. Small pleural effusions with left basilar predominant consolidation which may represent atelectasis versus pneumonia.. CT of the head/brain wo con was read as negative for acute findings. Prior to admission admission the patient was initially given 500 mL NSS and subsequently given 40 mg IV lasix. At the time of the exam the patient was sitting in bed in no acute distress with her daughter bedside, history was obtained from both. starting 01/29/24, the patient and her family have noticed significant BL LE swelling, which is not normal for her. She has had intermittent confusion while at [facility], but her daughter confirms she is back to her normal baseline today. She underwent Iovera procedure 48 hours ago with [facility] for OA of the left knee. Over the past 3-4 days the patient has been generally weak, to the point that she was too weak to get off the bedside commode today. Her daughter has been very unhappy with the care at [facility], they will be looking to discharge the patient to a new facility at the end of this admission. The patient has noted RLE pain over the past week. Her daughter confirms the patient is not on diuretics outpatient. The patient is a full code. Please refer to Dr. Guidry's attestation for any changes to the treatment plan Principal Dx & Hospital Course #1 = Principal Diagnosis (1) Volume overload: Due to acute on chronic diastolic CHF, related to severe LVH, also with severe . ECHO with preserved EF Received IV Lasix diuresis and had great improvement BPs are controlled, started metoprolol for PSVT Can use lasix 20mg po daily prn weight gain or peripheral edema F/u in CHF clinic follow low sodium duet, fluid restrict to 1500mL daily Appreciate cardiology consultation and recommendations (2) Hypokalemia: Due to Lasix therapy. Oral replacement given and had improvement (3) PSVT (paroxysmal supraventricular tachycardia): Noted on telemetry. Asymptomatic. Suppressed with oral metoprolol which is new -continue this at 25mg po bid (4) Elevated troponin: Due to demand ischemia. No evidence of acute coronary syndrome. Cardiac echo report noted without wall motion abnormalities (5) Cellulitis of right lower extremity: Treated with 5 days of Rocephin. Resolved. Antibiotics have been discontinued. (6) Antiphospholipid antibody syndrome: History of DVT's and aortic thrombus. INR is 2.6 on day of discharge but a dose was held on 02/05Resume home dosing of Coumadin and check INR in 2-3 days, follows with Anticoag clinic and goal INR is 2.5-3.5 due to antiphospholipid ab syndrome with h/o DVTs and arterial thrombosis (7) Chronic pain of right upper extremity: Venous Doppler negative for DVT but did show some fluid collections which may be hematomas? Solu-Medrol has been switched back to her usual oral prednisone dosage. Much improved (8) Rheumatoid arthritis involving both hands with negative rheumatoid factor: Treated transiently with parenteral steroid therapy. This has been switched back to her usual oral prednisone dosage. Hold Plaquenil temporarily with active infection but resumed on discharge Resume home OxyContin 20mg daily which was held on admission Continue oxycodone tid (not sure why is scheduled rather than prn--consider increasing OxyContin dose to avoid short acting oxycodone use) Continue Celebrex (9) Severe aortic stenosis: f/u with Cardiology to further discuss possible TAVR (10) Hypothyroidism: TSH mildly elevated at 6.3 here but FT4 normal continue home dose LT4 and check TSH in 4-6 weeks when no acutely ill (11) GERD (gastroesophageal reflux disease): continue PPI bid Zofran as needed for mid-day nausea Plan Anemia, Leukocytosis-see my last discharge summary-recommend ongoing Fe supplementation and f/u with Heme if leukocytosis not improving Dispo-dc to SNF at [facility] Discharge Exam Constitutional WD/WN, vitals as above Cardiovascular Rate/Rhythm: regular rate and regular rhythm Heart Sounds: + murmur (3/6 KAREN at RUSB) Extremities: no edema Gastrointestinal (Abdomen) normal bowel sounds, soft, nontender, no hepatosplenomegaly Updated Medication List Medication Instructions Recorded Confirmed Type acetaminophen 500 mg capsule 500 mg PO DAILY PRN pain 07/11/19 02/02/24 History calcium carbonate 600 mg-vitamin 2 cap PO BID #0 caps 10/16/19 02/02/24 History D3 5 mcg (200 unit) capsule (Calcium 600 + D(3)) diclofenac sodium 1 % topical gel 4 g topical TID PRN Pain #100 grams 11/29/23 02/02/24 Rx ascorbic acid (vitamin C) 1,000 mg 1 g PO DAILY 90 days #90 caps 01/19/24 02/02/24 Rx capsule ferrous sulfate 325 mg (65 mg 325 mg PO DAILY 90 days #90 tabs 01/19/24 02/02/24 Rx iron) tablet hydroxychloroquine 200 mg tablet 200 mg PO QAM #180 tabs 01/19/24 02/02/24 Rx levothyroxine 125 mcg tablet 125 mcg PO QAM #90 tabs 01/19/24 02/02/24 Rx (Synthroid) naloxone 4 mg/actuation nasal 4 mg intranasal Q3M PRN opioid 01/19/24 02/02/24 Rx spray (Narcan) overdose #2 ea nitrofurantoin macrocrystal 100 mg 100 mg PO QAM #90 caps 01/19/24 02/02/24 Rx capsule (Macrodantin) pravastatin 10 mg tablet 10 mg PO QDL #90 tabs 01/19/24 02/02/24 Rx prednisone 10 mg tablet 10 mg PO DAILY #90 tabs 01/19/24 02/02/24 Rx rabeprazole 20 mg tablet,delayed 20 mg PO BID #180 tabs 01/19/24 02/02/24 Rx release (AcipHex) sertraline 100 mg tablet 200 mg (2 x 100 mg) PO DAILY 90 01/19/24 02/02/24 Rx days #180 tabs warfarin 3 mg tablet See Rx Instructions PO .COMPLEX 01/27/24 02/02/24 History celecoxib 200 mg capsule 200 mg PO DAILY 02/02/24 02/02/24 History gabapentin 300 mg capsule 300 mg PO Q12 02/02/24 02/02/24 History multivitamin (Daily-Maritza tablet) 1 tab PO DAILY 02/02/24 02/02/24 History alprazolam 0.25 mg tablet (Xanax) 0.125 mg (1/2 x 0.25 mg) PO QAM 02/07/24 Rx anxiety #3 tabs docusate sodium 100 mg capsule 100 mg PO BID #60 caps 02/07/24 Rx furosemide 20 mg tablet (Lasix) 20 mg PO DAILY PRN edema or weight 02/07/24 Rx gain of 2 lbs/24 hrs #10 tabs metoprolol tartrate 25 mg tablet 25 mg PO BID #60 tabs 02/07/24 Rx ondansetron 4 mg disintegrating 4 mg PO DAILY PRN nausea and 02/07/24 Rx tablet vomiting 3 days #3 tabs oxycodone 20 mg tablet,crush 20 mg PO QAM #3 tabs 02/07/24 Rx resistant,extended release 12 hr (OxyContin) oxycodone-acetaminophen 5 mg-325 1 tab PO TID #9 tabs 02/07/24 Rx mg tablet (Percocet) polyethylene glycol 3350 17 gram 17 g PO DAILY #30 ea 02/07/24 Rx oral powder packet (Miralax) zolpidem 10 mg tablet (Ambien) 10 mg PO HS PRN Sleep #3 tabs 02/07/24 Rx Hospital Stay Data Consultations 02/02/24 14:47 ED Decision to Admit Stat 02/04/24 09:47 Consult Cardiology Routine 02/07/24 13:56 [facility] CHF Program Referral Routine Diagnostic Imagining Performed 02/02/24 13:11 CT head/brain wo con Stat 02/02/24 16:19 US venous doppler UE RT Routine 02/02/24 16:30 US venous doppler LE RT Urgent ECHO Pending Results Patient Have Any Pending Studies at Discharge: No Discharge Instructions Given to Patient (Per Discharging Provider) You were admitted with volume overload from congestive heart failure related to your aortic valve stenosis. You were given diuretics to get the fluid off and can now take lasix daily as needed for weight gain or swelling. You were also treated with antibiotics for an infection of the leg called cellulitis-this has resolved. You were started on a medication called metoprolol to help treat occasional runs of a fast heart rhythm called supraventricular tachycardia (SVT). Please check your PT/INR in 2-3 days at the rehab and report results to the Anticoagulation clinic. Call your Primary Care doctor if any of the following symptoms or problems start or get worse: * Shortness of breath or difficulty breathing * Wake up at night short of breath * Chest pain * Cough * Swelling of your hands, feet, or legs * More fatigued or tired with your normal activity * Palpitations - sudden fast heart beats WEIGHT * Weigh yourself every morning after using the bathroom. * Use the same scale. * Wear the same amount of clothing. * Write your weight down on a chart. * Call your Primary Care doctor if you gain more than 2-3 pounds in 1-2 days. MEDICATIONS * Use this discharge instruction sheet for medication instructions. * Take your medications at the time your doctor ordered. * Do not skip a dose of your medicines. * If you miss a dose of medicine, take it as soon as possible, but DO NOT DOUBLE A DOSE. * Read your medicine information when you get home. * Know all of the side effects of your medicine. If in doubt, ask your pharmacist * Call your Primary Care doctor's office if you have any side effects. * Be sure all of your doctors know what medicine and herbs you take (including cold, flu, and herbal medicine). Take the following with you to your follow-up doctor appointments: * Weight Chart * Medication List * List of questions Do not drink excessive alcohol, beer or wine. Total Time Total Time Spent Total Time Spent (In Minutes): 40 min Total Time Includes: Examination of the Patient, Discharge Planning, Medication Reconciliation and Communication With Other Providers (Cardiology) Coding Level of Care Code 54866 INP/OBS DISCH >30 MIN Diagnoses Volume overload E87.70 Hypokalemia E87.6 PSVT (paroxysmal supraventricular tachycardia) I47.10 Elevated troponin R79.89 Cellulitis of right lower extremity L03.115 Antiphospholipid antibody syndrome D68.61 Chronic pain of right upper extremity M79.601; G89.29 Rheumatoid arthritis involving both hands with negative rheumatoid factor M06.041; M06.042 Severe aortic stenosis I35.0 Hypothyroidism E03.9 GERD (gastroesophageal reflux disease) K21.9
[2024-02-07] MEDS ORDERED: WARFARIN SOD 3 MG TAB PO SCH (16:00)
== END 2024-02-07 15:39 | DRG 291 ==
LOC: ED 13:03 → EDINP 16:16 → SUATTDRO 16:16 → 2N 18:44